=== PATIENT | male | born 1940 | race Caucasian/White ===

== ENCOUNTER 2018-05-02 00:16 | Emergency (ER) | payer MEDICARE ==
[~2018-05-02] VITALS: Ht 193 cm; Wt 82.7 kg
[2018-05-02 00:21] VITALS: Ht 193 cm; Wt 82.7 kg
[2018-05-02] MEDS ORDERED: PLAVIX75 MG PO (00:21)
[2018-05-02] MEDS ORDERED: LIPITOR40 MG (00:22)
[2018-05-02] MEDS ORDERED: COLACE100 MG PO (00:23)
[2018-05-02] MEDS ORDERED: HUMULIN 70100 UNIT/1 SC (00:23)
[2018-05-02] MEDS ORDERED: LANTUS INSULIN10 ML SC (00:24)
[2018-05-02 01:08] LABS: ALBUMIN 3.9 g/dL (3.4-5.0); ANION GAP 18.9 mmol/L (8-16); BILIRUBIN - TOTAL 0.4 mg/dL (0.2-1.3); CALCIUM 9.3 mg/dL (8.5-10.1); CARBON DIOXIDE 24.5 mmol/L (21.0-32.0); CREATININE - SERUM 2.3 mg/dL (0.6-1.3); POTASSIUM - SERUM 4.4 mmol/L (3.5-5.1); PROTEIN - SERUM 8.2 g/dL (6.4-8.2)
[2018-05-02 01:10] LABS: BASOPHILS 0.3 % (0-2); EOSINOPHILS 1.8 % (0-7); HEMATOCRIT 36.5 % (42.0-54.0); HEMOGLOBIN 12.3 g/dL (13.5-17.5); IMMATURE GRANULOCYTES 0.2 % (0-5); LYMPHOCYTES 20.3 % (15-50); MCH 33.8 pg (26.0-34.0); MCHC 33.7 g/dL (31.0-37.0); MCV 100.3 fL (80.0-100.0); MEAN PLATELET VOLUME 9.8 fL (7.4-10.4); MONOCYTES 12.7 % (2-11); NEUTROPHILS 64.7 % (40-80); PLATELET COUNT 208 10x3/uL (130-400); RBC 3.64 10x6/uL (4.20-6.10); RDW 13.2 % (11.5-14.5); WBC 6.6 10x3/uL (4.8-10.8)
[2018-05-02 01:13] LABS: TROPONIN-I 0.019 ng/mL (0.000-0.060)
[2018-05-02 03:38] VITALS: BP 125/75
== END 2018-05-02 03:39 | disposition home or self-care (01) ==
LOC: D.ER 00:16
PROVIDERS: Family Medicine
DX: E86.0 Dehydration (principal); N17.9 Acute kidney failure, unspecified; N18.9 Chronic kidney disease, unspecified

== ENCOUNTER 2018-07-20 19:11 | Inpatient (IN) | payer MEDICARE ==
[~2018-07-20] VITALS: Ht 182.9 cm; Wt 80.0 kg
[~2018-07-20 19:11] MED LIST: COLACE100 MG PO; HUMULIN 70100 UNIT/1 SC; LANTUS INSULIN10 ML SC; LIPITOR40 MG PO; PLAVIX75 MG PO
[2018-07-20] MEDS ORDERED: MULTI-DAY VITAM1 TAB PO (19:28)
[2018-07-20] MEDS ORDERED: TOUJEO SOL300 UNIT/1 SC (19:30)
[2018-07-20 20:23] LABS: BASOPHILS 0.1 % (0-2); EOSINOPHILS 0.5 % (0-7); HEMATOCRIT 30.9 % (42.0-54.0); HEMOGLOBIN 10.7 g/dL (13.5-17.5); IMMATURE GRANULOCYTES 0.4 % (0-5); MCH 33.5 pg (26.0-34.0); MCHC 34.6 g/dL (31.0-37.0); MCV 96.9 fL (80.0-100.0); MEAN PLATELET VOLUME 9.2 fL (7.4-10.4); MONOCYTES 12.1 % (2-11); NEUTROPHILS 78.9 % (40-80); PLATELET COUNT 247 10x3/uL (130-400); RBC 3.19 10x6/uL (4.20-6.10); RDW 12.6 % (11.5-14.5); WBC 14.1 10x3/uL (4.8-10.8)
[2018-07-20 20:32] LABS: APTT 27.9 SECONDS (22.8-39.4); INR 1.13 (0.85-1.17)
[2018-07-20 20:38] LABS: ALKALINE PHOSPHATASE 86 U/L (46-116); ALT (SGPT) 15 U/L (10-68); BILIRUBIN - TOTAL 0.61 mg/dL (0.2-1.3); CALC OSMOLALITY 274 mosm/kg (275-300); CALCIUM 9.5 mg/dL (8.5-10.1); CARBON DIOXIDE 25.4 mmol/L (21.0-32.0); CHLORIDE - SERUM 91 mmol/L (98-107); CREATININE - SERUM 2.1 mg/dL (0.6-1.3); POTASSIUM - SERUM 4.2 mmol/L (3.5-5.1); PROTEIN - SERUM 8.5 g/dL (6.4-8.2); SODIUM 128 mmol/L (136-145); UREA NITROGEN 32 mg/dL (7-18); eGFR NON AFRICAN AMERICAN 32 mL/min (90-120)
[2018-07-20 20:40] LABS: GLUCOSE 301 mg/dL (74-106)
--- NOTE | 2018-07-20 20:45 | NUR ---
PT PLACED IN GOWN. NECROTIC TOE NOTED TO 4TH DIGIT ON L FOOT. MIMI CHAVARRIA AT PT BEDSIDE.
[2018-07-20 20:50] LABS: CKMB 0.6 U/L (0.0-3.6); CREATINE KINASE 71 UL (21-232); TROPONIN-I < 0.017 ng/mL (0.000-0.060)
--- NOTE | 2018-07-20 21:01 | NUR ---
PT AND SPOUSE UPDATED ON PLAN OF CARE. NO S/S OF ACUTE DISTRESS NOTED.
[2018-07-20 21:02] VITALS: BP 127/68
--- NOTE | 2018-07-20 21:50 | NUR ---
URINE SPECIMEN SENT TO LAB.
[2018-07-20 22:13] LABS: APPEARANCE CLEAR (CLEAR); BILIRUBIN NEGATIVE (NEGATIVE); COLOR YELLOW (YELLOW); GLUCOSE 1000 mg/dL (NEGATIVE); KETONE NEGATIVE (NEGATIVE); NITRITE NEGATIVE (NEGATIVE); PROTEIN NEGATIVE (NEGATIVE); RED CELLS - URINE OCC /hpf (0-5); UROBILINOGEN NORMAL (NORMAL); WHITE CELLS - URINE NSEEN /hpf (0-5)
[2018-07-20 23:35] VITALS: BP 115/56; BMI 23.9
--- NOTE | 2018-07-21 02:15 | NUR ---
PATIENT ARIVED FROM ER IN W/C. ALERT AND ORENTED ABLE TO VOICE NEEDS AND WANTS TO STAFF. SCAR TO CHEST AND LOW BACK, HEALED FROM OLD SURG. 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 LITTLE TOE ON LEFT FOOT WITH NECROSIS AND OTHER TOES PRESENT DISCOLERED ON LEFT FOOT. STATED HE HAS APT WITH WOUND DR FOR IT. HAD BALLON STENTS PLACED WENSDAY , WENT IN THROUGH RIGHT GROUND SOME BRUSING NOTED TO SITE, NO BLEEDING NOTED.
[2018-07-21 03:00] VITALS: BP 121/63
[2018-07-21 07:25] LABS: BASOPHILS 0.1 % (0-2); IMMATURE GRANULOCYTES 0.3 % (0-5); LYMPHOCYTES 10.7 % (15-50); MCH 32.6 pg (26.0-34.0); MCHC 33.3 g/dL (31.0-37.0); MCV 97.8 fL (80.0-100.0); MEAN PLATELET VOLUME 9.4 fL (7.4-10.4); MONOCYTES 12.9 % (2-11); PLATELET COUNT 228 10x3/uL (130-400); RBC 2.76 10x6/uL (4.20-6.10); RDW 12.8 % (11.5-14.5); WBC 12.6 10x3/uL (4.8-10.8)
[2018-07-21 07:40] LABS: ALBUMIN 2.4 g/dL (3.4-5.0); BILIRUBIN - TOTAL 0.54 mg/dL (0.2-1.3); CALCIUM 8.8 mg/dL (8.5-10.1); CARBON DIOXIDE 27.8 mmol/L (21.0-32.0); CREATININE - SERUM 1.7 mg/dL (0.6-1.3); POTASSIUM - SERUM 3.8 mmol/L (3.5-5.1); PROTEIN - SERUM 7.1 g/dL (6.4-8.2)
[2018-07-21 08:14] VITALS: BP 110/58
--- NOTE | 2018-07-21 09:12 | NUR ---
PT ALERT X 4. BREATH SOUNDS CLEAR BILAT. TELEMETRY IN PLACE. MIDDLE FINGER LEFT HAND AMPUTATED. IV TO LEFT AC, PATENT, DRESSING CDI. TOES OF RIGHT FOOT AMPUTATED. TOES TO LEFT FOOT DRESSING IN PLACE. PT REPORTING NO PAIN AT THIS TIME. BED LOW, CALL LIGHT IN REACH. NO OTHER NEEDS AT THIS TIME.
--- NOTE | 2018-07-21 09:12 | NUR ---
PT ALERT X 4. BREATH SOUNDS CLEAR BILAT. TELEMETRY IN PLACE. MIDDLE FINGER OF LEFT HAND AMPUTATED. IV TO LEFT AC, PATENT, DRESSING CDI. TOES OF RIGHT FOOT AMPUTATED. 2ND AND 3RD TOE OF LEFT FOOT NECROTIC, DRESSING IN PLACE. PT REPORTING NO PAIN THIS MORNING. BED LOW, CALL LIGHT IN REACH. NO OTHER NEEDS AT THIS TIME.
[2018-07-21 12:14] VITALS: BP 112/84
[2018-07-21 16:58] VITALS: BP 134/70
[2018-07-21 20:16] VITALS: BP 84/36
[2018-07-22 01:03] VITALS: BP 126/64
--- NOTE | 2018-07-22 04:25 | NUR ---
I have reviewed this patient and I concur with the Shift Assessment completed by the Licensed Practical Nurse today this shift.
[2018-07-22 05:39] LABS: BASOPHILS 0.2 % (0-2); EOSINOPHILS 0.8 % (0-7); HEMATOCRIT 27.3 % (42.0-54.0); HEMOGLOBIN 9.3 g/dL (13.5-17.5); IMMATURE GRANULOCYTES 0.3 % (0-5); LYMPHOCYTES 9.9 % (15-50); MCH 32.9 pg (26.0-34.0); MCHC 34.1 g/dL (31.0-37.0); MCV 96.5 fL (80.0-100.0); MEAN PLATELET VOLUME 9.2 fL (7.4-10.4); MONOCYTES 12.4 % (2-11); NEUTROPHILS 76.4 % (40-80); PLATELET COUNT 243 10x3/uL (130-400); RBC 2.83 10x6/uL (4.20-6.10); RDW 12.4 % (11.5-14.5); WBC 12.9 10x3/uL (4.8-10.8)
[2018-07-22 05:44] VITALS: BP 118/79
[2018-07-22 05:54] LABS: ALBUMIN 2.2 g/dL (3.4-5.0); ANION GAP 10.8 mmol/L (8-16); BILIRUBIN - TOTAL 0.68 mg/dL (0.2-1.3); CALCIUM 9.4 mg/dL (8.5-10.1); CARBON DIOXIDE 28.8 mmol/L (21.0-32.0); CREATININE - SERUM 1.6 mg/dL (0.6-1.3); POTASSIUM - SERUM 3.6 mmol/L (3.5-5.1)
--- NOTE | 2018-07-22 07:37 | NUR ---
PT ALERT X 4. BREATH SOUNDS CLEAR BILAT. IV TO LEFT AC, PATENT, DRESSING CDI. TELEMETRY IN PLACE. DRESSING TO LEFT TOES INTACT. PT REPORTING NO PAIN AT THIS TIME. BED LOW, CALL LIGHT IN REACH. NO OTHER NEEDS AT THIS TIME.
[2018-07-22 09:49] VITALS: BP 149/75
[2018-07-22 11:00] VITALS: BMI 23.8
[2018-07-22 13:35] VITALS: BP 120/64
--- NOTE | 2018-07-22 14:23 | NUR ---
PT LYING IN BED NO S/S OF DISTRESS, NO NEEDS VOICED. CONTINUE WITH PLAN OF CARE
--- NOTE | 2018-07-22 15:20 | NUR ---
ADVISED BY COMMUTATOR REPAIRER PT TEMP IS 101.4 ADMINISTERED PRN TYLENOL. CONTINUE WITH PLAN OF CARE
[2018-07-22 18:20] VITALS: BP 153/74
[2018-07-22 21:04] VITALS: BP 106/53
[2018-07-23 00:40] VITALS: BP 124/60
[2018-07-23 04:14] VITALS: BP 128/58
[2018-07-23 05:21] LABS: BASOPHILS 0.1 % (0-2); EOSINOPHILS 0.1 % (0-7); HEMATOCRIT 25.4 % (42.0-54.0); HEMOGLOBIN 8.6 g/dL (13.5-17.5); IMMATURE GRANULOCYTES 0.6 % (0-5); LYMPHOCYTES 6.1 % (15-50); MCH 32.1 pg (26.0-34.0); MCHC 33.9 g/dL (31.0-37.0); MCV 94.8 fL (80.0-100.0); MEAN PLATELET VOLUME 9.1 fL (7.4-10.4); MONOCYTES 7.7 % (2-11); NEUTROPHILS 85.4 % (40-80); PLATELET COUNT 234 10x3/uL (130-400); RBC 2.68 10x6/uL (4.20-6.10); RDW 12.4 % (11.5-14.5)
--- NOTE | 2018-07-23 05:30 | NUR ---
PT JUST FINISHED SHOWER/HIBICLENS. A&O, DENIES PAIN. INQUIRED ABOUT BLOOD CULTURE RESULTS. REPORTS MILD MAUSEA. DENIES FURTHER NEEDS AT THIS TIME.
[2018-07-23 05:40] LABS: BILIRUBIN - TOTAL 0.62 mg/dL (0.2-1.3); CALCIUM 8.3 mg/dL (8.5-10.1); CARBON DIOXIDE 25.5 mmol/L (21.0-32.0); CREATININE - SERUM 1.6 mg/dL (0.6-1.3); POTASSIUM - SERUM 3.5 mmol/L (3.5-5.1); PROTEIN - SERUM 5.7 g/dL (6.4-8.2)
--- NOTE | 2018-07-23 07:20 | NUR ---
I have reviewed this patient and I concur with the Shift Assessment completed by the Licensed Practical Nurse today this shift.
--- NOTE | 2018-07-23 07:43 | NUR ---
PT ALERT X 4. BREATH SOUNDS CLEAR BILAT. TELEMETRY IN PLACE. IV TO LEFT AC, PATENT, DRESSING CDI. DRESSING TO LEFT FOOT. BED LOW, CALL LIGHT IN REACH. AWAITING SURGERY TODAY. NO OTHER NEEDS AT THIS TIME.
[2018-07-23 08:47] VITALS: BP 105/46
[2018-07-23 11:51] LABS: % SATURATION 7 % (15-55); IRON 11 ug/dl (35-150); TOTAL IRON BIND CAPACITY 140 ug/dl (260-445); UNSAT IRON BIND CAPACITY 129 ug/dl (150-375)
[2018-07-23 12:45] VITALS: BP 81/42
--- NOTE | 2018-07-23 12:51 | MORECARE ---
CASE MANAGEMENT DISCHARGE SUMMARY PATIENT: DAVID HOWELL UNIT: [id number] ADM DATE: 07/20/18 AGE: 78 : 40 SEX: M ROOM/BED: D.2201 AUTHOR: GERALDINE CASTRO PHYSICIAN: REFERRING PHYSICIAN: GLORIA ARRNIGTON MD DATE OF SERVICE: 07/23/18 Discharge Plan Patient Name: DAVID HOWELL [facility] [facility] 1940 Planned Disposition: Home Anticipated Discharge Date: Discharge Date: Expected LOS: Initial Reviewer: [email or web address] Initial Review Date: 07/20/2018 Generated: 07/23/18 1:50 pm DCPIA - Discharge Planning Initial Assessment Updated by [email or web address]: Irina Pelayo on 07/23/18 12:51 pm * Is the patient Alert and Oriented? Yes * How many steps to enter\exit or inside your home? * PCP [facility] * [facility] [address] * Preadmission Environment Home with Family * ADLs Independent * Equipment None * List name and contact numbers for known caregivers / representatives who currently or will assist patient after discharge: jovan () [phone] * Verbal permission to speak to the caregivers and representatives has been obtained from the patient. N/A * Community resources currently utilized None * Additional services required to return to the preadmission environment? Yes * Can the patient safely return to the preadmission environment? Yes * Has this patient been hospitalized within the prior 30 days at any hospital? No Patient Name: DAVID HOWELL Page [phone] at 1251 All edits/amendments must be made on the electronic document DICTATION DATE: 07/23/18 1250 FOOD TRAY ASSEMBLER: SENDY 07/23/18 1250 RPT#: [id number] DC DATE: STATUS: ADM IN [facility] [address] [place] [address] END OF REPORT
--- NOTE | 2018-07-23 13:00 | MORECARE ---
CASE MANAGEMENT DISCHARGE SUMMARY PATIENT: DAVID HOWELL UNIT: [id number] ADM DATE: 07/20/18 AGE: 78 : 40 SEX: M ROOM/BED: D.2201 AUTHOR: MATTHEWDOC PHYSICIAN: REFERRING PHYSICIAN: GLORIA ARRINGTON MD DATE OF SERVICE: 07/23/18 Discharge Plan Patient Name: DAVID HOWELL Facility: [facility]:[place] : 1940 Planned Disposition: Home Anticipated Discharge Date: Discharge Date: Expected LOS: Initial Reviewer: [email or web address] Initial Review Date: 07/20/2018 Generated: 07/23/18 2:00 pm Comments DCP- Discharge Planning Updated by [email or web address]: Irina Pelayo on 07/23/18 11:[address] Patient Name: DAVID HOWELL Admission Status: ER Accout number: [id number] Admission Date: 07-20-2018 : 1940 Admission Diagnosis: Attending: GLORIA ARRINGTON Current LOS: 3 Anticipated DC Date: Planned Disposition: Home Primary Insurance: CARE IMPROVEMENT PLUS [facility] Discharge Planning Comments: CM met with patient to complete initial dc planning assessment. CM educated patient on the CM role and verbal consent given by patient to complete assessment. Patient lives at home with his where he is independent with is care. At discharge patient plans to return home and feels this is a safe discharge. CM discussed availability of home health, rehab services, and medical equipment. We talked about home health and iv abx as a possibility when he is discharged home. FALGUNI with [facility] and he would like to use the infusion company that is the cheapest out of pocket cost for him. We will wait to see if he needs this at dc. FALGUNI signed and placed in chart. Patient denied known discharge needs at this time. CM will continue to follow and will assist as needed with dc plans/needs. Product Operations Associate: Irina Pelayo DCPIA - Discharge Planning Initial Assessment Updated by [email or web address]: Irina Pelayo on 07/23/18 12:51 pm * Is the patient Alert and Oriented? Yes * How many steps to enter\exit or inside your home? * PCP [facility] * [facility] [address] * Preadmission Environment Home with Family * ADLs Independent * Equipment None * List name and contact numbers for known caregivers / representatives who currently or will assist patient after discharge: jovan () [phone] * Verbal permission to speak to the caregivers and representatives has been obtained from the patient. N/A * Community resources currently utilized None * Additional services required to return to the preadmission environment? Yes * Can the patient safely return to the preadmission environment? Yes * Has this patient been hospitalized within the prior 30 days at any hospital? No Coverage Notice Reviewer: [email or web address] Teodoro Pelayo Notice Issued Date-Time: 07/23/2018 12:15 Notice Type: Patient Choice Letter Notice Delivered To: Patient Relationship to Patient: Rac Specialist Name: Delivery Method: HAND - Hand Delivered Radha Days: Prior Verbal Notification: Recipient Understood Notice: Yes Recipient Signature: Yes Med Rec Note Co-signed by Attending: Coverage Notice Comment: Last DP export: 07/23/18 11:51 am Patient Name: DAVID HOWELL Page [phone] at 1300 All edits/amendments must be made on the electronic document DICTATION DATE: 07/23/18 1259 OUTDOOR ADVENTURE INSTRUCTOR: SENDY 07/23/18 1259 RPT#: [id number] DC DATE: STATUS: ADM IN [facility] [address] [place] [address] END OF REPORT
[2018-07-23 16:47] VITALS: BP 100/59
[2018-07-23 21:28] VITALS: BP 115/60
[2018-07-24 02:13] VITALS: BP 119/62
--- NOTE | 2018-07-24 03:00 | NUR ---
BLOODY DRAINAGE ON DRESSING TO LEFT FOOT, REINFORCED. PT DENIES PAIN/NEEDS AT THIS TIME. WILL CONTINUE TO MONITOR.
[2018-07-24 04:50] VITALS: BP 138/66
[2018-07-24 05:30] LABS: BASOPHILS 0.2 % (0-2); EOSINOPHILS 0.1 % (0-7); HEMATOCRIT 25.7 % (42.0-54.0); HEMOGLOBIN 8.8 g/dL (13.5-17.5); IMMATURE GRANULOCYTES 0.5 % (0-5); LYMPHOCYTES 7.4 % (15-50); MCH 32.8 pg (26.0-34.0); MCHC 34.2 g/dL (31.0-37.0); MCV 95.9 fL (80.0-100.0); MEAN PLATELET VOLUME 9.7 fL (7.4-10.4); NEUTROPHILS 82.8 % (40-80); PLATELET COUNT 269 10x3/uL (130-400); RBC 2.68 10x6/uL (4.20-6.10); RDW 12.6 % (11.5-14.5); WBC 17.7 10x3/uL (4.8-10.8)
--- NOTE | 2018-07-24 05:47 | NUR ---
I have reviewed this patient and I concur with the Shift Assessment completed by the Licensed Practical Nurse today this shift.
[2018-07-24 05:49] LABS: ANION GAP 14.7 mmol/L (8-16); BILIRUBIN - TOTAL 0.64 mg/dL (0.2-1.3); CALCIUM 8.5 mg/dL (8.5-10.1); CARBON DIOXIDE 26.8 mmol/L (21.0-32.0); CREATININE - SERUM 1.8 mg/dL (0.6-1.3); POTASSIUM - SERUM 3.5 mmol/L (3.5-5.1); PROTEIN - SERUM 6.8 g/dL (6.4-8.2)
--- NOTE | 2018-07-24 07:43 | NUR ---
PT ALERT X 4. BREATH SOUNDS CLEAR BILAT. TELEMETRY IN PLACE. IV TO LEFT AC, PATENT, DRESSING CDI. DRESSING TO LEFT FOOT CDI. PT REPORTING NO PAIN AT THIS TIME. BED LOW, CALL LIGHT IN REACH. NO OTHER NEEDS AT THIS TIME.
[2018-07-24 08:48] VITALS: BP 123/64
[2018-07-24 12:23] VITALS: BP 140/73
--- NOTE | 2018-07-24 12:49 | NUR ---
NUTRITION F/U CHART REVIEWED. PT S/P PROCEDURE. CURRENTLY NPO. WILL PROVIDE DIET WHEN RESUMED, MONITOR PO INTAKE. RD FOLLOWING
[2018-07-24 13:15] LABS: FOLATE (FOLIC ACID) - SERUM 6.8 ng/mL (>3.0)
[2018-07-24 15:00] LABS: T4 THYROXIN - FREE 1.44 ng/dL (0.76-1.46)
[2018-07-24 15:08] LABS: MAGNESIUM - SERUM 0.9 mg/dL (1.8-2.4)
[2018-07-24 15:27] VITALS: Ht 182.9 cm; Wt 80.0 kg
[2018-07-24 16:45] VITALS: BP 131/67
--- NOTE | 2018-07-24 18:02 | NUR ---
DRESSING CHANGE TO RIGHT FOOT COMPLETE. DRESSING CDI. PT TOLERATED WELL. NO OTHER NEEDS AT THIS TIME.
[2018-07-24 21:27] VITALS: BP 121/71
[2018-07-25 02:05] VITALS: BP 107/57
[2018-07-25 04:28] LABS: ANION GAP 13.7 mmol/L (8-16); BILIRUBIN - TOTAL 0.89 mg/dL (0.2-1.3); CALCIUM 8.8 mg/dL (8.5-10.1); CARBON DIOXIDE 27.8 mmol/L (21.0-32.0); CREATININE - SERUM 1.9 mg/dL (0.6-1.3); POTASSIUM - SERUM 3.5 mmol/L (3.5-5.1); PROTEIN - SERUM 7.1 g/dL (6.4-8.2)
[2018-07-25 04:33] LABS: BASOPHILS 0.2 % (0-2); EOSINOPHILS 0.1 % (0-7); HEMATOCRIT 24.3 % (42.0-54.0); HEMOGLOBIN 8.4 g/dL (13.5-17.5); LYMPHOCYTES 8.2 % (15-50); MCH 32.4 pg (26.0-34.0); MCHC 34.6 g/dL (31.0-37.0); MEAN PLATELET VOLUME 9.5 fL (7.4-10.4); MONOCYTES 7.6 % (2-11); NEUTROPHILS 82.9 % (40-80); PLATELET COUNT 282 10x3/uL (130-400); RBC 2.59 10x6/uL (4.20-6.10); RDW 12.7 % (11.5-14.5); WBC 17.7 10x3/uL (4.8-10.8)
[2018-07-25 04:35] LABS: MCV 93.8 fL (80.0-100.0)
[2018-07-25 06:17] VITALS: BP 134/74
--- NOTE | 2018-07-25 07:00 | NUR ---
PATIENT RECIEVED FROM PREVIOUS SHIFT RESTING WITH NO NEEDS VOICED. CL IN REACH. DRESSINGS C/D/I
[2018-07-25 10:08] VITALS: BP 129/66
[2018-07-25 13:03] VITALS: BP 90/49
--- NOTE | 2018-07-25 15:39 | NUR ---
DRESSING CHANGED TO LEFT FOOT SURGICAL WOND FOLLOWS: PACKING REMOVED, CLEANSED WITH BETADINE, PACKED TUNNEL WITH 1/4"IODOFORM PACKING, COVERED WITH 4X4'S, ABD PAD, SECURED WITH KERLIX AND TAPE. NO ODOR NOTED TO WOUND, MINIMAL DRAINAGE, NO REDNESS OR OTHER SIGNS OF INFECTION
[2018-07-25 16:58] VITALS: BP 116/63
[2018-07-25 21:16] VITALS: BP 124/71
[2018-07-26] VITALS (13 sets, daily range): BP systolic 87–126; BP diastolic 44–88
--- NOTE | 2018-07-26 01:00 | NUR ---
PAIN MED EFFECTIVE RESTING QUIETLY EYES CLOSED VSS NO DISTRESS NOTED
--- NOTE | 2018-07-26 01:29 | NUR ---
RESTING IN BED WITH NO NEEDS NOTED OR STATED IV IN TACT CALL LIGHT AND WATER IN REACH.
[2018-07-26 04:17] LABS: HEMOGLOBIN 9.6 g/dL (13.5-17.5); MCH 32.1 pg (26.0-34.0); MCHC 34.3 g/dL (31.0-37.0); MCV 93.6 fL (80.0-100.0); MEAN PLATELET VOLUME 10.1 fL (7.4-10.4); PLATELET COUNT 278 10x3/uL (130-400); RBC 2.99 10x6/uL (4.20-6.10); RDW 12.8 % (11.5-14.5); WBC 14.8 10x3/uL (4.8-10.8)
[2018-07-26 04:28] LABS: ALBUMIN 1.8 g/dL (3.4-5.0); ANION GAP 13.4 mmol/L (8-16); BILIRUBIN - TOTAL 0.76 mg/dL (0.2-1.3); CALCIUM 8.1 mg/dL (8.5-10.1); CARBON DIOXIDE 27.2 mmol/L (21.0-32.0); CREATININE - SERUM 1.7 mg/dL (0.6-1.3); POTASSIUM - SERUM 3.6 mmol/L (3.5-5.1); PROTEIN - SERUM 6.5 g/dL (6.4-8.2)
[2018-07-26 04:45] LABS: EOSINOPHILS 1 % (0-7); LYMPHOCYTES 5 % (15-50); MONOCYTES 8 % (2-11); NEUTROPHILS 78 % (40-80)
[2018-07-26 04:46] LABS: PLATELET ESTIMATE NORMAL; PLATELET MORPHOLOGY GIANT PLTS PRESENT; SMUDGE CELLS OCC
[2018-07-26 11:40] LABS: HEMOGLOBIN 9.4 g/dL (13.5-17.5); MCH 33.2 pg (26.0-34.0); MCHC 34.8 g/dL (31.0-37.0); MCV 95.4 fL (80.0-100.0); MEAN PLATELET VOLUME 10.3 fL (7.4-10.4); PLATELET COUNT 335 10x3/uL (130-400); RBC 2.83 10x6/uL (4.20-6.10); RDW 12.9 % (11.5-14.5); WBC 24.6 10x3/uL (4.8-10.8)
[2018-07-26 11:54] LABS: ALKALINE PHOSPHATASE 147 U/L (46-116); ALT (SGPT) 683 U/L (10-68); BILIRUBIN - TOTAL 0.87 mg/dL (0.2-1.3); CALC OSMOLALITY 298 mosm/kg (275-300); CALCIUM 7.9 mg/dL (8.5-10.1); CHLORIDE - SERUM 99 mmol/L (98-107); GLUCOSE 191 mg/dL (74-106); PROTEIN - SERUM 6.1 g/dL (6.4-8.2); SODIUM 144 mmol/L (136-145); UREA NITROGEN 32 mg/dL (7-18)
[2018-07-26 11:56] LABS: CARBON DIOXIDE 35.9 mmol/L (21.0-32.0); CREATININE - SERUM 2.3 mg/dL (0.6-1.3); POTASSIUM - SERUM 4.5 mmol/L (3.5-5.1); eGFR NON AFRICAN AMERICAN 29 mL/min (90-120)
--- NOTE | 2018-07-26 12:00 | NUR ---
RECEIVED PT TO UNIT POST RAPID RESPONSE ON FLOOR. WAS TOLD PT HAD A VAGAL RESPONSE WHILE HAVING A BOWEL MOVEMENT. RECEIVED ON A NON REBREATHER. DRESSING CHANGE TO LEFT FOOT WAS DONE BY [employer] SUPERVISOR ONCE PT STABILIZED IN UNIT. MONITORS HOOKED UP. HEAD TO TOE ASSESSMENT PERFORMED. IV FLUIDS STARTED. VSS. AT BEDSIDE. CALL LIGHT IN REACH. WILL CONTINUE TO MONITOR.
[2018-07-26 12:05] LABS: CKMB 1.8 U/L (0.0-3.6); CREATINE KINASE 152 UL (21-232)
--- NOTE | 2018-07-26 13:35 | NUR ---
PT RESTING QUIETLY. PT NOW ON O2 AT 2L. EKG DONE PER RT PER ORDERS. CARDIOLOGY BOOTMAKER NOTIFIED OF ELEVATED TROPONIN. NO NEW ORDERS AT THIS TIME. VSS. WILL CONTINUE TO MONITOR.
[2018-07-26 14:19] LABS: BASOPHILS 0.7 % (0-2); EOSINOPHILS 0.4 % (0-7); IMMATURE GRANULOCYTES 7.8 % (0-5); LYMPHOCYTES 16.8 % (15-50); NEUTROPHILS 67.3 % (40-80)
--- NOTE | 2018-07-26 15:45 | NUR ---
PT TAKEN FOR NM LUNG SCAN. VSS.
--- NOTE | 2018-07-26 19:00 | NUR ---
REPORT RECEIVED SEE ASSESSMENT PT ORIENTED DENIES PAIN OR DISCOMFORT ALARMS ON AND AUDIBLE DRESSING NOTED TO LEFT FOOT DRY AND INTACT
[2018-07-26 19:47] LABS: CKMB 4.9 U/L (0.0-3.6); VANCOMYCIN - TROUGH 17.7 ug/mL (10.0-20.0)
[2018-07-26 19:53] LABS: CREATINE KINASE 306 UL (21-232)
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
[2018-07-27] VITALS (13 sets, daily range): BP systolic 101–138; BP diastolic 49–76
[2018-07-27 00:52] LABS: CKMB 3.6 U/L (0.0-3.6); CREATINE KINASE 258 UL (21-232); TROPONIN-I 0.129 ng/mL (0.000-0.060)
--- NOTE | 2018-07-27 01:00 | NUR ---
PAIN MED EFFECTIVE PT RESTING QUIETLY EYES CLOSED VSS NO DISTRESS NOTED
--- NOTE | 2018-07-27 03:00 | NUR ---
REASSESSMENT MADE NO CHANGES CPOC. PT REPOSITIONED FOR COMFORT
--- NOTE | 2018-07-27 03:00 | NUR ---
REASSESSMENT NO CHANGES PT DENIES DISTRESS
[2018-07-27 03:23] LABS: BASOPHILS 0.3 % (0-2); EOSINOPHILS 0.5 % (0-7); HEMATOCRIT 24.9 % (42.0-54.0); HEMOGLOBIN 8.5 g/dL (13.5-17.5); LYMPHOCYTES 9.1 % (15-50); MCH 32.2 pg (26.0-34.0); MCHC 34.1 g/dL (31.0-37.0); MCV 94.3 fL (80.0-100.0); MEAN PLATELET VOLUME 10.3 fL (7.4-10.4); MONOCYTES 7.2 % (2-11); NEUTROPHILS 77.9 % (40-80); PLATELET COUNT 338 10x3/uL (130-400); RBC 2.64 10x6/uL (4.20-6.10); RDW 12.9 % (11.5-14.5)
[2018-07-27 03:40] LABS: ALBUMIN 1.7 g/dL (3.4-5.0); BILIRUBIN - TOTAL 0.71 mg/dL (0.2-1.3); CALCIUM 7.9 mg/dL (8.5-10.1); CARBON DIOXIDE 27.5 mmol/L (21.0-32.0); CREATININE - SERUM 1.8 mg/dL (0.6-1.3)
[2018-07-27 03:41] LABS: ANION GAP 12.2 mmol/L (8-16); POTASSIUM - SERUM 3.7 mmol/L (3.5-5.1)
--- NOTE | 2018-07-27 05:00 | NUR ---
PT AWAKE WATCHING TV NO DISTRESS NOTED VSS CPOC REPOSITIONED FOR COMFORT
--- NOTE | 2018-07-27 08:46 | NUR ---
UP IN BED EATING BREAKFAST AT THIS TIME. PT DENIES ANY NEEDS OR DISCOMFORTS. CALL LIGHT IN REACH. VSS. NO ACUTE DISTRESS NOTED. WILL CONTINUE PLAN OF CARE.
--- NOTE | 2018-07-27 10:46 | NUR ---
UP IN BED WATCHING TV AT THIS TIME. NO ACUTE DISTRESS NOTED. BED ALARM ON. CALL LIGHT IN REACH. WILL CONTINUE PLAN OF CARE.
--- NOTE | 2018-07-27 12:30 | NUR ---
DRESSING CHANGE PERFORMED TO LT FOOT PER ORDERS. NO DRAINAGE OR REDNESS NOTED TO AREA. NO ACUTE DISTRESS NOTED. WILL CONTINUE PLAN OF CARE.
--- NOTE | 2018-07-27 13:59 | NUR ---
PT TRANSFERRED TO 2118 AT THIS TIME. REPORT CALLED TO RECIEVING NURSE. [facility] CHANGED [facility] TRANSFER. NOHELIA CARE PROVIDED BY PT. NO ACUTE DISTRESS NOTED. TRANSFERRED VIA BED ACCOMPANIED BY HOSPITAL STAFF. RECIEVING NURSE STATED SHE WILL NOTIFY PTS FAMILY OF TRANSFER. VSS. NO FURTHER ACTIONS.
--- NOTE | 2018-07-27 14:22 | NUR ---
PT ARRIVED FROM ICU, ALERT AND ORIENTED X4. I CALLED PT'S SPOUSE TO LET HER KNOW ABOUT THE TRANSFER. CALL LIGHT IN REACH, WILL CONTINUE TO MONITOR AND FOLLOW PLAN OF CARE
[2018-07-27 17:07] LABS: AEROBE ID Final report (())
--- NOTE | 2018-07-27 20:00 | NUR ---
PT RESTING IN BED. NO DISTRESS. INITIAL ROUNDS COMPLETED. SEE ASSESSMENT.
--- NOTE | 2018-07-27 21:15 | NUR ---
ALL BEDTIME MEDS GIVEN. PT RESTING. CALL LIGHT IN REACH. MONITOR AND CPOC. AT BEDSIDE. PT EATING FOOD SHE BROUGHT IN. WILL CHECK BLOOD SUGAR POST PRANDIAL.
--- NOTE | 2018-07-27 23:30 | NUR ---
FSBS 313, SLIDING SCALE INSULIN ADMINISTERED. IV ABT UP AND INFUSING. MONITOR AND CPOC.
--- NOTE | 2018-07-28 03:07 | NUR ---
PT RESTING IN BED WITH EYES CLOSED. RESPS EVEN/NONLABORED. NO DISTRESS. MONITOR AND CPOC. AT BEDSIDE.
--- NOTE | 2018-07-28 07:30 | NUR ---
ROUNDING DONE WITH PATIENT LAYING ON BACK IN BED, IN CHAIR AT BEDSIDE. DENIES NEEDS AT THIS TIME. ON HEART MONITOR SHOWING SR, HR 68. ON ROOM AIR. RIGHT AC PIV SEEN WITH LR INFUSING AT 100 CC/HR, ORANGE SWAB CAP IN USE. ON EP, AWAITING LAB RESULTS. WILL MONITOR.
[2018-07-28 07:59] VITALS: BP 143/81
--- NOTE | 2018-07-28 08:03 | NUR ---
CALLED TO ROOM PER . PATIENT PULLED HIS IV OUT WITH TIP INTACT. WILL ATTEMPT RE-SITE.
[2018-07-28 08:39] LABS: ALBUMIN 1.8 g/dL (3.4-5.0); ANION GAP 17.1 mmol/L (8-16); BILIRUBIN - TOTAL 0.6 mg/dL (0.2-1.3); CALCIUM 7.7 mg/dL (8.5-10.1); CARBON DIOXIDE 20.8 mmol/L (21.0-32.0); POTASSIUM - SERUM 3.9 mmol/L (3.5-5.1); PROTEIN - SERUM 5.7 g/dL (6.4-8.2)
[2018-07-28 08:40] LABS: CREATININE - SERUM 1.2 mg/dL (0.6-1.3)
--- NOTE | 2018-07-28 09:10 | NUR ---
RIGHT FA X 1 STICK WITH 22 G PER THIS NURSE.
[2018-07-28 10:09] LABS: HEMOGLOBIN 9.9 g/dL (13.5-17.5); MCH 34.7 pg (26.0-34.0); MCHC 36.7 g/dL (31.0-37.0); MCV 94.7 fL (80.0-100.0); MEAN PLATELET VOLUME 10.7 fL (7.4-10.4); NEUTROPHILS 81.5 % (40-80); PLATELET COUNT 152 10x3/uL (130-400); RBC 2.85 10x6/uL (4.20-6.10); RDW 13.8 % (11.5-14.5); WBC 16.1 10x3/uL (4.8-10.8)
[2018-07-28 11:57] VITALS: BP 143/71
[2018-07-28 16:27] VITALS: BP 143/78
[2018-07-28 19:45] VITALS: BP 150/83
--- NOTE | 2018-07-28 20:00 | NUR ---
INITIAL ROUNDS AND ASSESSMENT COMPLETED. PT RESTING IN BED. IV LR AT 125ML/HR INFUSING TO RFA. DENIES PAIN OR DISCOMFORT. MONITOR AND CPOC.
--- NOTE | 2018-07-28 21:39 | NUR ---
BEDTIME MEDS GIVEN. FSBS 331, SLIDING SCALE HUMULIN R ADMINISTERED. CONCERNED ABOUT ARMS LOOKING PUFFY, IVF DECREASED TO 50ML/HR WHICH SHE FEELS IS BETTER FOR PATIENT. PT ALSO HAS DRESSING TO LEFT FOOT THAT SHE STATES WAS SUPPOSED TO BE CHANGED TODAY AND WAS NOT. WILL PROVIDE DRESSING CHANGE.
--- NOTE | 2018-07-28 23:09 | NUR ---
COMPLETE DRESSING CHANGE TO LEFT FOOT. PRESENT, ABLE TO SEE WOUND. PULSES DOPPLER X 2 TO LEFT FOOT. PT WANTING SOMETHING FOR PAIN TO RIB/CHEST AREA. DISCUSSED WITH /PATIENT THAT ONLY AVAILABLE PAIN MEDICATION IS IV DILAUDID. SHE STATES PT DOES NOT DO VERY WELL WITH STRONG NARCOTICS. WILL CONTACT MD FOR A LESSER STRENGTH ORAL MEDICATION FOR PAIN CONTROL.
--- NOTE | 2018-07-28 23:20 | NUR ---
CALL TO DR ESPOSITO. REPORTED REQUEST PER FAMILY FOR A LESSER NARCOTIC. ORDER RECEIVED FOR NORCO TABS. WILL MEDICATE.
[2018-07-29] VITALS: BP 147/86
[2018-07-29 04:00] VITALS: BP 144/79
[2018-07-29 05:46] LABS: HEMATOCRIT 26.6 % (42.0-54.0); HEMOGLOBIN 9.1 g/dL (13.5-17.5); MCH 31.9 pg (26.0-34.0); MCHC 34.2 g/dL (31.0-37.0); MCV 93.3 fL (80.0-100.0); MEAN PLATELET VOLUME 9.7 fL (7.4-10.4); RBC 2.85 10x6/uL (4.20-6.10); RDW 12.8 % (11.5-14.5); WBC 15.5 10x3/uL (4.8-10.8)
[2018-07-29 05:48] LABS: ALBUMIN 1.9 g/dL (3.4-5.0); BILIRUBIN - TOTAL 0.53 mg/dL (0.2-1.3); CALCIUM 7.6 mg/dL (8.5-10.1); CREATININE - SERUM 1.2 mg/dL (0.6-1.3); PLATELET COUNT 443 10x3/uL (130-400); POTASSIUM - SERUM 3.6 mmol/L (3.5-5.1); PROTEIN - SERUM 5.9 g/dL (6.4-8.2)
[2018-07-29 05:49] LABS: ANION GAP 10.9 mmol/L (8-16); CARBON DIOXIDE 27.7 mmol/L (21.0-32.0)
[2018-07-29 07:59] VITALS: BP 123/84
[2018-07-29 08:09] LABS: ANISOCYTOSIS OCC; EOSINOPHILS 1 % (0-7); HYPOCHROMASIA OCC; LYMPHOCYTES 15 % (15-50); MONOCYTES 12 % (2-11); NEUTROPHILS 67 % (40-80); PLATELET ESTIMATE INCREASED; ROULEAUX OCC
--- NOTE | 2018-07-29 10:04 | NUR ---
ALERT AND ORIENTED X4. LAYING IN BED. SPOUSE AT BEDSIDE. CHANGE LT FOOT DRESSING. CONSENTS FOR EGD SIGNED ON CHART. DENIES ANY NEEDS AT THIS TIME. SINUS RHYTHM 73 ON TELEMETRY. CONTINUE PLAN OF CARE AND SAFETY PRECAUTIONS.
[2018-07-29 12:04] VITALS: BP 183/99
[2018-07-29 18:07] LABS: AEROBE ID Final report (())
--- NOTE | 2018-07-29 18:28 | NUR ---
ALERT AND ORIENTED X4. SITTING UP IN BED. SPOUSE AT BEDSIDE. SINUS RHYTHM WITH PVCs ON TELEMETRY. CONSENTS FOR PROCEDURE SIGNED ON CHART. DENIES ANY NEEDS. CONTINUE PLAN OF CARE AND SAFETY PRECAUTIONS.
--- NOTE | 2018-07-29 19:30 | NUR ---
RESUMING PATIENT CARE. PATIENT IS ALERT AND ORIENTED. RESPIRATIONS ARE EVEN AND UNLABORED. NO S/S OF DISTRESS. NO C/O PAIN. AT BESIDE. NEEDS MET. CALL LIGHT WITHIN REACH. WILL CPOC.
[2018-07-29 20:00] VITALS: BP 171/95
[2018-07-30] VITALS: BP 166/84
--- NOTE | 2018-07-30 01:06 | NUR ---
PATIENT RESTING COMFORTABLY IN BED. RESPIRATIONS ARE EVEN AND UNLABORED. NO S/S OF DISTRESS. NO C/O PAIN. AT BEDSIDE. CALL LIGHT WITHIN REACH. WILL CPOC.
[2018-07-30 04:00] VITALS: BP 148/79
[2018-07-30 05:15] LABS: BASOPHILS 0.3 % (0-2); EOSINOPHILS 1.1 % (0-7); HEMATOCRIT 31.8 % (42.0-54.0); LYMPHOCYTES 13.5 % (15-50); MCH 32.7 pg (26.0-34.0); MCHC 34.9 g/dL (31.0-37.0); MCV 93.8 fL (80.0-100.0); MEAN PLATELET VOLUME 9.7 fL (7.4-10.4); MONOCYTES 10.9 % (2-11); NEUTROPHILS 69.2 % (40-80); PLATELET COUNT 459 10x3/uL (130-400); RBC 3.39 10x6/uL (4.20-6.10); RDW 12.9 % (11.5-14.5); WBC 13.3 10x3/uL (4.8-10.8)
[2018-07-30 05:16] LABS: HEMOGLOBIN 11.1 g/dL (13.5-17.5)
[2018-07-30 05:26] LABS: ALBUMIN 2.1 g/dL (3.4-5.0); BILIRUBIN - TOTAL 0.67 mg/dL (0.2-1.3); CALCIUM 8.5 mg/dL (8.5-10.1); CARBON DIOXIDE 29.1 mmol/L (21.0-32.0); CREATININE - SERUM 1.1 mg/dL (0.6-1.3); POTASSIUM - SERUM 3.1 mmol/L (3.5-5.1)
[2018-07-30 05:37] LABS: PROTEIN - SERUM 7.4 g/dL (6.4-8.2)
--- NOTE | 2018-07-30 08:45 | NUR ---
RECIEVED FROM OR. ALERT AND ORIENTED. V/S STABLE. DRSG TO LEFT FOOT. RIGHT FORE ARM IV WITH LR AT KVO. UP WITH ASSIST, FAMILY AT BEDSIDE . SR UP WITH CALL LIGHT IN REACH.
--- NOTE | 2018-07-30 09:40 | NUR ---
Nutrition follow-up: Pt currently NPO for wound clousure PO intake has been 50-100% of most meals Labs revieweed Wt: 175# +BM RDN following.
--- NOTE | 2018-07-30 16:12 | NUR ---
I have reviewed this patient and I concur with the Shift Assessment completed by the Licensed Practical Nurse today this shift.
--- NOTE | 2018-07-30 19:35 | NUR ---
ASSESSMENT COMPLETE, PT A&O. RESPERATIONS EVEN ON RA. IV TO RIGHT FOREARM WITH LR INFUSING AT KVO. IV SITE CLEAN AND DRY. DRSG TO LEFT FOOT C/D/I, FOOT ELEVATED ON PILLOW. PT DRINKING GO-LYTLEY TO PREPARE FOR COLONOSCOPY IN THE MORNING, PT STATED UNDERSTANDING OF NOTHING TO EAT OR DRINK AFTER MN. PT CURRENLY DENIES PAIN OR NEEDS, BED LOW, CL IN REACH. AT BED SIDE.
[2018-07-30 20:00] VITALS: BP 148/82
--- NOTE | 2018-07-30 21:34 | NUR ---
HS MEDS GIVEN WITH FRESH ICE WATER. BS 305. COVERED WITH 4 UNITS OF REG. INSULIN, WHICH IS HALF OF DOSE OF THE S/S, SINCE PT IS NPO AFTER MN FOR PROCEDURE.
[2018-07-31 00:08] VITALS: BP 149/89
--- NOTE | 2018-07-31 00:25 | NUR ---
PT UP TO BR, STOOL CLEAR
--- NOTE | 2018-07-31 02:47 | NUR ---
RESTING WITH EYES CLOSED, RESPERATIONS EVEN, NO S/S DISTRESS NOTED.
--- NOTE | 2018-07-31 03:01 | NUR ---
I have reviewed this patient and I concur with the Shift Assessment completed by the Licensed Practical Nurse today this shift.
[2018-07-31 04:00] VITALS: BP 154/89
[2018-07-31 06:13] LABS: BASOPHILS 0.2 % (0-2); EOSINOPHILS 1.4 % (0-7); HEMATOCRIT 29.5 % (42.0-54.0); IMMATURE GRANULOCYTES 1.4 % (0-5); LYMPHOCYTES 16.4 % (15-50); MCH 32.3 pg (26.0-34.0); MCHC 33.9 g/dL (31.0-37.0); MCV 95.2 fL (80.0-100.0); MEAN PLATELET VOLUME 9.6 fL (7.4-10.4); MONOCYTES 11.3 % (2-11); NEUTROPHILS 69.3 % (40-80); PLATELET COUNT 425 10x3/uL (130-400); WBC 12.5 10x3/uL (4.8-10.8)
[2018-07-31 07:00] LABS: ALBUMIN 2.1 g/dL (3.4-5.0); ANION GAP 15.8 mmol/L (8-16); BILIRUBIN - TOTAL 0.59 mg/dL (0.2-1.3); CALCIUM 8.3 mg/dL (8.5-10.1); CARBON DIOXIDE 24.5 mmol/L (21.0-32.0); POTASSIUM - SERUM 3.3 mmol/L (3.5-5.1); PROTEIN - SERUM 7.2 g/dL (6.4-8.2)
[2018-07-31 07:01] LABS: CREATININE - SERUM 1.4 mg/dL (0.6-1.3)
[2018-07-31 08:44] VITALS: BP 159/72
[2018-07-31 11:40] VITALS: BP 118/62
--- NOTE | 2018-07-31 12:37 | NUR ---
PRE-OPS GIVEN. TO COOK COLD MEAT BY BED. WILL CONT. PLAN OF CARE.
--- NOTE | 2018-07-31 13:48 | NUR ---
BACK FROM GI LAB. DIET AND MEDS RESUMED.
[2018-07-31 15:46] VITALS: BP 131/74
--- NOTE | 2018-07-31 19:30 | NUR ---
RESUMING PATIENT CARE. PATIENT IS ALERT AND ORIENTED, RESTING COMFORTABLY IN BED. RESPIRATIONS ARE EVEN AND UNLABORED. NO S/S OF DISTRESS. NO C/O PAIN. CALL LIGHT WITHIN REACH. WILL CPOC.
[2018-07-31 20:00] VITALS: BP 127/69
[2018-08-01] VITALS: BP 142/77
[2018-08-01 04:00] VITALS: BP 140/76
[2018-08-01 08:18] VITALS: BP 155/81
--- NOTE | 2018-08-01 09:38 | NUR ---
TELEMETRY CAF. HR 98. RESP UL ON 02 2L NC. UD CONT PER RT. CALL LIGHT IN REACH. WILL CONT. PLAN OF CARE.
--- NOTE | 2018-08-01 09:39 | NUR ---
TELEMETRY SR. AT BS. IVETTEG TO LEFT FOOT CDI. CALL LIGHT IN REACH.
[2018-08-01 12:39] VITALS: BP 122/63
--- NOTE | 2018-08-01 16:08 | MORECARE ---
CASE MANAGEMENT DISCHARGE SUMMARY PATIENT: DAVID HOWELL UNIT: [id number] ADM DATE: 07/20/18 AGE: 78 : 40 SEX: M ROOM/BED: D.2452 AUTHOR: MATTHEW,DOC PHYSICIAN: REFERRING PHYSICIAN: GLORIA ARRINGTON MD DATE OF SERVICE: 08/01/18 Discharge Plan Patient Name: DAVID HOWELL Facility: [facility]:[place] : 1940 Planned Disposition: Home Anticipated Discharge Date: Discharge Date: Expected LOS: Initial Reviewer: [email or web address] Initial Review Date: 07/20/2018 Generated: 08/01/18 5:07 pm Comments DCP- Discharge Planning Updated by [email or web address]: Keyana Bunch on 08/01/18 3:[address] PLAN FOR POSSIBLE DISCHARGE HOME W/ IV ANTIBIOTIC THERAPY 08/02/18. REFERRAL SENT TO [facility] FOR [facility]. PATIENT WANTS THE MOST REASONABLE PROVIDER [employer]. HE HAD SIGNED FOR [facility]ALTH PROVIDER. TC TO [facility]. SPOKE WITH DINORAH HEIN. FAXED MD ORDER, ID NOTE AND HISTORY AND PHYSICAL. TC TO [facility] REGARDING REFERRAL. SPOKE W/ [place]. THE SCHEDULE WILL ALLOW FOR A SUNDAY ADMIT 08/04. SHE WILL ATTEMPT TO REARRANGE THE SCHEDULE IF POSSIBLE. CM FAXED REFERRAL INFORMATION. [facility] IS SCHEDULING INTO NEXT WEEK 08/06. [facility] IS SCHEDULING INTO NEXT WEEK 08/05. PATIENT HAS CARE IMPROVEMENT PLUS INSURANCE WHICH WILL REQUIRE A PREAUTH. DCP- Discharge Planning Updated by [email or web address]: Irina Pelayo on 07/23/18 11:[address] Patient Name: DAVID HOWELL Admission Status: ER Accout number: [id number] Admission Date: 07-20-2018 : 1940 Admission Diagnosis: Attending: GLORIA ARRINGTON Current LOS: 3 Anticipated DC Date: Planned Disposition: Home Primary Insurance: CARE IMPROVEMENT PLUS [facility] Discharge Planning Comments: CM met with patient to complete initial dc planning assessment. CM educated patient on the CM role and verbal consent given by patient to complete assessment. Patient lives at home with his where he is independent with is care. At discharge patient plans to return home and feels this is a safe discharge. CM discussed availability of home health, rehab services, and medical equipment. We talked about home health and iv abx as a possibility when he is discharged home. FALGUNI with [facility] and he would like to use the infusion company that is the cheapest out of pocket cost for him. We will wait to see if he needs this at dc. FALGUNI signed and placed in chart. Patient denied known discharge needs at this time. CM will continue to follow and will assist as needed with dc plans/needs. Cut Off Sawyer: Irina Pelayo DCPIA - Discharge Planning Initial Assessment Updated by [email or web address]: Irina Pelayo on 07/23/18 12:51 pm * Is the patient Alert and Oriented? Yes * How many steps to enter\exit or inside your home? * PCP [facility] * [facility] [address] * Preadmission Environment Home with Family * ADLs Independent * Equipment None * List name and contact numbers for known caregivers / representatives who currently or will assist patient after discharge: jovan () [phone] * Verbal permission to speak to the caregivers and representatives has been obtained from the patient. N/A * Community resources currently utilized None * Additional services required to return to the preadmission environment? Yes * Can the patient safely return to the preadmission environment? Yes * Has this patient been hospitalized within the prior 30 days at any hospital? No Coverage Notice Reviewer: [id number] - Irina Pelayo Notice Issued Date-Time: 07/23/2018 12:15 Notice Type: Patient Choice Letter Notice Delivered To: Patient Relationship to Patient: Street Light Wirer Name: Delivery Method: HAND - Hand Delivered Radha Days: Prior Verbal Notification: Recipient Understood Notice: Yes Recipient Signature: Yes Med Rec Note Co-signed by Attending: Coverage Notice Comment: Last DP export: 07/23/18 12:00 pm Patient Name: DAVID HOWELL Page [id number] at 1608 All edits/amendments must be made on the electronic document DICTATION DATE: 08/01/181606 OUTPATIENT PSYCHIATRIST: SENDY 08/01/181606 RPT#: [id number] RI DATE: STATUS: ADM IN [facility] [address] [place] [address] END OF REPORT
[2018-08-01 16:50] VITALS: BP 167/95
--- NOTE | 2018-08-01 19:56 | NUR ---
RESUMING PATIENT CARE. PATIENT IS ALERT AND ORIENTED, RESPIRATIONS ARE EVEN AND UNLABORED. NO S/S OF DISTRESS. NO C/O PAIN. CALL LIGHT WITHIN REACH. WILL CPOC.
[2018-08-01 21:04] VITALS: BP 172/87
[2018-08-02 01:29] VITALS: BP 188/116
[2018-08-02 05:18] LABS: BASOPHILS 0.2 % (0-2); EOSINOPHILS 1.4 % (0-7); HEMOGLOBIN 10.8 g/dL (13.5-17.5); IMMATURE GRANULOCYTES 0.6 % (0-5); MCH 32.6 pg (26.0-34.0); MCHC 34.8 g/dL (31.0-37.0); MCV 93.7 fL (80.0-100.0); MEAN PLATELET VOLUME 9.3 fL (7.4-10.4); MONOCYTES 11.7 % (2-11); NEUTROPHILS 72.1 % (40-80); PLATELET COUNT 386 10x3/uL (130-400); RBC 3.31 10x6/uL (4.20-6.10); RDW 14.1 % (11.5-14.5)
[2018-08-02 05:23] LABS: WBC 8.6 10x3/uL (4.8-10.8)
[2018-08-02 05:32] LABS: ALBUMIN 2.2 g/dL (3.4-5.0); ANION GAP 14.2 mmol/L (8-16); BILIRUBIN - TOTAL 0.61 mg/dL (0.2-1.3); CALCIUM 8.7 mg/dL (8.5-10.1); CARBON DIOXIDE 24.7 mmol/L (21.0-32.0); CREATININE - SERUM 1.4 mg/dL (0.6-1.3); MAGNESIUM - SERUM 1.4 mg/dL (1.8-2.4); POTASSIUM - SERUM 3.9 mmol/L (3.5-5.1); PROTEIN - SERUM 7.7 g/dL (6.4-8.2)
[2018-08-02 06:22] VITALS: BP 172/84
[2018-08-02 08:13] VITALS: BP 108/67
--- NOTE | 2018-08-02 10:57 | MORECARE ---
CASE MANAGEMENT DISCHARGE SUMMARY PATIENT: DAVID HOWELL UNIT: [id number] ADM DATE: 07/20/18 AGE: 78 : 40 SEX: M ROOM/BED: D.7180 AUTHOR: MATTHEW,GERALDINE PHYSICIAN: REFERRING PHYSICIAN: GLORIA ARRINGTON MD DATE OF SERVICE: 08/02/18 Discharge Plan Patient Name: DAVID HOWELL Facility: [facility]:[place] : 1940 Planned Disposition: Home Anticipated Discharge Date: Discharge Date: Expected LOS: Initial Reviewer: [id number] Initial Review Date: 07/20/2018 Generated: 08/02/18 11:57 am Comments DCP- Discharge Planning Updated by [id number]: Keyana Bunch on 08/02/18 9:[address] CM RECEIVED A TELEPHONE CALL FROM BRIDGETT WITH [employer] [facility]. THE CARE INPROVEMENT CONTRACT HAS NOT BEEN RENEWED W/ SHY[employer]NE AT THIS TIME. [employer] CANNOT ASSUME CARE. TC TO [facility]. LEFT VOICE MAIL MESSAGE W/ SAMANTA, THE LIAISON. SAMANTA VISITED ON SITE. CARE IV IS NOT CONTRACTED WITH [facility]. [facility] IS NOT ACCEPTING NEW REFERRALS DUE TO TRAINING FOR COMPUTER UPDATE. CM WENT TO UPDATE THE PATIENT. HE WAS SLEEPING SOUNDLY. WILL REVISIT. CM SPOKE W/ THE PRIMARY NURSE, RAJ. 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 CM WILL F/U. AWAIT AUTH FROM INSURANCE FOR MEDICATION. DCP- Discharge Planning Updated by [id number]: Keyana Bunch on 08/01/18 3:[address] PLAN FOR POSSIBLE DISCHARGE HOME W/ IV ANTIBIOTIC THERAPY 08/02/18. REFERRAL SENT TO [place] FOR PRICING. PATIENT WANTS THE MOST REASONABLE PROVIDER [employer]. HE HAD SIGNED FOR [employer] [facility] HOME HEALTH PROVIDER. TC TO [place]. SPOKE WITH DINORAH HEIN. FAXED MD ORDER, ID NOTE AND HISTORY AND PHYSICAL. TC TO [employer] REGARDING REFERRAL. SPOKE W/ BRIDGETT. THE SCHEDULE WILL ALLOW FOR A SUNDAY ADMIT 08/04. SHE WILL ATTEMPT TO REARRANGE THE SCHEDULE IF POSSIBLE. CM FAXED REFERRAL INFORMATION. [facility] IS SCHEDULING INTO NEXT WEEK 08/06. [facility] IS SCHEDULING INTO NEXT WEEK 08/05. PATIENT HAS CARE IMPROVEMENT PLUS INSURANCE WHICH WILL REQUIRE A PREAUTH. DCP- Discharge Planning Updated by [id number]: Irina Pelayo on 07/23/18 11:[address] Patient Name: DAVID HOWELL Admission Status: ER Accout number: [id number] Admission Date: 07-20-2018 : 1940 Admission Diagnosis: Attending: GLORIA ARRINGTON Current LOS: 3 Anticipated DC Date: Planned Disposition: Home Primary Insurance: CARE IMPROVEMENT PLUS [facility] Discharge Planning Comments: CM met with patient to complete initial dc planning assessment. CM educated patient on the CM role and verbal consent given by patient to complete assessment. Patient lives at home with his where he is independent with is care. At discharge patient plans to return home and feels this is a safe discharge. CM discussed availability of home health, rehab services, and medical equipment. We talked about home health and iv abx as a possibility when he is discharged home. FALGUNI with [facility] and he would like to use the infusion company that is the cheapest out of pocket cost for him. We will wait to see if he needs this at [place]. FALGUNI signed and placed in chart. Patient denied known discharge needs at this time. CM will continue to follow and will assist as needed with dc plans/needs. Kennel Helper: Irina Pelayo DCPIA - Discharge Planning Initial Assessment Updated by [id number]: Irina Pelayo on 07/23/18 12:51 pm * Is the patient Alert and Oriented? Yes * How many steps to enter\exit or inside your home? * PCP [facility] * [facility] [address] * Preadmission Environment Home with Family * ADLs Independent * Equipment None * List name and contact numbers for known caregivers / representatives who currently or will assist patient after discharge: jovan () [phone] * Verbal permission to speak to the caregivers and representatives has been obtained from the patient. N/A * Community resources currently utilized None * Additional services required to return to the preadmission environment? Yes * Can the patient safely return to the preadmission environment? Yes * Has this patient been hospitalized within the prior 30 days at any hospital? No Coverage Notice Reviewer: [id number] - Irina Pelayo Notice Issued Date-Time: 07/23/2018 12:15 Notice Type: Patient Choice Letter Notice Delivered To: Patient Relationship to Patient: Creative Writer Name: Delivery Method: HAND - Hand Delivered Radha Days: Prior Verbal Notification: Recipient Understood Notice: Yes Recipient Signature: Yes Med Rec Note Co-signed by Attending: Coverage Notice Comment: Last DP export: 08/01/18 3:07 p Patient Name: DAVID HOWELL Page [id number] at 1057 All edits/amendments must be made on the electronic document DICTATION DATE: 08/02/181056 APPRENTICE PHOTOGRAPHER: SENDY 08/02/18 1057 RPT#: [id number] DC DATE: STATUS: ADM IN [facility] [address] [place] [address] END OF REPORT
[2018-08-02 11:45] VITALS: BP 149/92
[2018-08-02] MEDS ORDERED: FLORAJEN3 CAPS460 MG PO (14:27)
[2018-08-02] MEDS ORDERED: INVANZ 1 GM/NS 11 G1 IV (14:27)
[2018-08-02] MEDS ORDERED: PROTONIX40 MG PO (14:28)
[2018-08-02] MEDS ORDERED: XARELTO15 MG PO (14:28)
--- NOTE | 2018-08-02 14:29 | NUR ---
NUtrition follow-up: Diet: ADA PO intake 75% average of meals; has been NPO for some meals Labs reviewed; Glucose elevated +BM Wt: 176# RDN following.
[2018-08-02 16:29] VITALS: BP 138/74
--- NOTE | 2018-08-02 17:48 | NUR ---
CONSENTS SIGNED FOR SURGERY.
--- NOTE | 2018-08-02 19:31 | MORECARE ---
CASE MANAGEMENT DISCHARGE SUMMARY PATIENT: DAVID HOWELL UNIT: [id number] ADM DATE: 07/20/18 AGE: 78 : 40 SEX: M ROOM/BED: D.9106 AUTHOR: MATTHEW,DOC PHYSICIAN: REFERRING PHYSICIAN: GLORIA ARRINGTON MD DATE OF SERVICE: 08/02/18 Discharge Plan Patient Name: DAVID HOWELL Facility: [facility]:[place] : 1940 Planned Disposition: Home Anticipated Discharge Date: 08/03/18 Discharge Date: Expected LOS: 14 Initial Reviewer: [id number] Initial Review Date: 07/20/2018 Generated: 08/02/18 8:31 pm Comments DCP- Discharge Planning Updated by [id number]: Keyana Bunch on 08/02/18 9:[address] CM RECEIVED A TELEPHONE CALL FROM BRIDGETT WITH [employer] [facility]. THE CARE INPROVEMENT CONTRACT HAS NOT BEEN RENEWED W/ SHYANNE AT THIS TIME. [employer] CANNOT ASSUME CARE. TC TO [facility]ARE [facility]. LEFT VOICE MAIL MESSAGE W/ SAMANTA, THE LIAISON. SAMANTA VISITED ON SITE. CARE IV IS NOT CONTRACTED WITH [facility]. [facility] IS NOT ACCEPTING NEW REFERRALS DUE TO TRAINING FOR COMPUTER UPDATE. CM WENT TO UPDATE THE PATIENT. HE WAS SLEEPING SOUNDLY. WILL REVISIT. CM SPOKE W/ THE PRIMARY NURSE, RAJ. 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 CM WILL F/U. AWAIT AUTH FROM INSURANCE FOR MEDICATION. DCP- Discharge Planning Updated by [id number]: Keyana Bunch on 08/01/18 3:[address] PLAN FOR POSSIBLE DISCHARGE HOME W/ IV ANTIBIOTIC THERAPY 08/02/18. REFERRAL SENT TO [place] FOR PRICING. PATIENT WANTS THE MOST REASONABLE PROVIDER [employer]. HE HAD SIGNED FOR [employer] [facility] HOME HEALTH PROVIDER. TC TO [place]. SPOKE WITH DINORAH HEIN. FAXED ORDER, ID NOTE AND HISTORY AND PHYSICAL. TC TO [employer] [facility] REGARDING REFERRAL. SPOKE W/ BRIDGETT. THE SCHEDULE WILL ALLOW FOR A SUNDAY ADMIT 08/04. SHE WILL ATTEMPT TO REARRANGE THE SCHEDULE IF POSSIBLE. CM FAXED REFERRAL INFORMATION. [facility] IS SCHEDULING INTO NEXT WEEK 08/06. [facility] IS SCHEDULING INTO NEXT WEEK 08/05. PATIENT HAS CARE IMPROVEMENT PLUS INSURANCE WHICH WILL REQUIRE A PREAUTH. DCP- Discharge Planning Updated by [id number]: Irina Pelayo on 07/23/18 11:[address] Patient Name: DAVID HOWELL Admission Status: ER Accout number: [id number] Admission Date: 07-20-2018 : 1940 Admission Diagnosis: Attending: GLORIA ARRINGTON Current LOS: 3 Anticipated DC Date: Planned Disposition: Home Primary Insurance: CARE IMPROVEMENT PLUS [facility] Discharge Planning Comments: CM met with patient to complete initial dc planning assessment. CM educated patient on the CM role and verbal consent given by patient to complete assessment. Patient lives at home with his where he is independent with is care. At discharge patient plans to return home and feels this is a safe discharge. CM discussed availability of home health, rehab services, and medical equipment. We talked about home health and iv abx as a possibility when he is discharged home. FALGUNI with [facility] and he would like to use the infusion company that is the cheapest out of pocket cost for him. We will wait to see if he needs this at [place]. FALGUNI signed and placed in chart. Patient denied known discharge needs at this time. CM will continue to follow and will assist as needed with dc plans/needs. Beet Topper: Irina Pelayo DCPIA - Discharge Planning Initial Assessment Updated by [id number]: Irina Pelayo on 07/23/18 12:51 pm * Is the patient Alert and Oriented? Yes * How many steps to enter\exit or inside your home? * PCP [facility] * [facility] [address] * Preadmission Environment Home with Family * ADLs Independent * Equipment None * List name and contact numbers for known caregivers / representatives who currently or will assist patient after discharge: jovan () [phone] * Verbal permission to speak to the caregivers and representatives has been obtained from the patient. N/A * Community resources currently utilized None * Additional services required to return to the preadmission environment? Yes * Can the patient safely return to the preadmission environment? Yes * Has this patient been hospitalized within the prior 30 days at any hospital? No Coverage Notice Reviewer: [id number] - Irina Pelayo Notice Issued Date-Time: 07/23/2018 12:15 Notice Type: Patient Choice Letter Notice Delivered To: Patient Relationship to Patient: Supervisor Accounting Clerks Name: Delivery Method: HAND - Hand Delivered Radha Days: Prior Verbal Notification: Recipient Understood Notice: Yes Recipient Signature: Yes Med Rec Note Co-signed by Attending: Coverage Notice Comment: Last DP export: 08/02/18 9:57 a Patient Name: DAVID HOWELL Page [id number] at 1931 All edits/amendments must be made on the electronic document DICTATION DATE: 08/02/181929 EUCLID OPERATOR: SENDY 08/02/181929 RPT#: [id number] DC DATE: STATUS: ADM IN [facility] [address] [place] [address] END OF REPORT
--- NOTE | 2018-08-02 19:39 | MORECARE ---
CASE MANAGEMENT DISCHARGE SUMMARY PATIENT: DAVID HOWELL UNIT: [id number] ADM DATE: 07/20/18 AGE: 78 : 40 SEX: M ROOM/BED: D.5804 AUTHOR: MATTHEW,DOC PHYSICIAN: REFERRING PHYSICIAN: GLORIA ARRINGTON MD DATE OF SERVICE: 08/02/18 Discharge Plan Patient Name: DAVID HOWELL Facility: [facility]:[place] : 1940 Planned Disposition: Home Anticipated Discharge Date: 08/03/18 Discharge Date: Expected LOS: 14 Initial Reviewer: [id number] Initial Review Date: 07/20/2018 Generated: 08/02/18 8:39 pm Comments DCP- Discharge Planning Updated by [id number]: Keyana Bunch on 08/02/18 6:[address] 1500 ANA NURSE, DINORAH HEIN , ON SITE TO TEACH THE PATIENT'S . AWAITED 'S ARRIVAL. 1630 DR QUINTANA, PODIATRY, VISITED . DRESSING CHANGED AND WOUND ASSESSED. 1645 PRIMARY NURSE ADVISED DISCHARGE IS CANCELLED FOR TODAY. PATIENT WILL BE GOING TO SURGERY TOMORROW W/ DR QUINTANA. ANA INFUSION, DINORAH HEIN, AWARE. ALL NECESSARY INFORMATION HAD BEEN PROVIDED FOR START OF CARE. SHE HAD PATIENT SUPPLIES. TC TO [facility]. ALL INFORMATION HAD BEEN FAXED AND VISIT WAS SCHEDULED FOR SUNDAY. CM WILL NEED TO NOTIFY [facility] WHEN PATIENT IS DISCHARGED DCP- Discharge Planning Updated by [id number]: Keyana Bunch on 08/02/18 9:[address] CM RECEIVED A TELEPHONE CALL FROM BRIDGETT WITH [employer] [facility]. THE CARE INPROVEMENT CONTRACT HAS NOT BEEN RENEWED W/ [facility] AT THIS TIME. [facility] CANNOT ASSUME CARE. TC TO [facility]. LEFT VOICE MAIL MESSAGE W/ SAMANTA, THE LIAISON. SAMANTA VISITED ON SITE. CARE IV IS NOT CONTRACTED WITH [facility]. [facility] IS NOT ACCEPTING NEW REFERRALS DUE TO TRAINING FOR COMPUTER UPDATE. CM WENT TO UPDATE THE PATIENT. HE WAS SLEEPING SOUNDLY. WILL REVISIT. CM SPOKE W/ THE PRIMARY NURSE, RAJ. 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 CM WILL F/U. AWAIT AUTH FROM INSURANCE FOR MEDICATION. DCP- Discharge Planning Updated by [id number]: Keyana Bunch on 08/01/18 3:[address] PLAN FOR POSSIBLE DISCHARGE HOME W/ IV ANTIBIOTIC THERAPY 08/02/18. REFERRAL SENT TO [place] FOR PRICING. PATIENT WANTS THE MOST REASONABLE PROVIDER [employer]. HE HAD SIGNED FOR [facility] HOME HEALTH PROVIDER. TC TO [place]. SPOKE WITH DINORAH HEIN. FAXED MD ORDER, ID NOTE AND HISTORY AND PHYSICAL. TC TO [facility] REGARDING REFERRAL. SPOKE W/ BRIDGETT. THE SCHEDULE WILL ALLOW FOR A SUNDAY ADMIT 08/04. SHE WILL ATTEMPT TO REARRANGE THE SCHEDULE IF POSSIBLE. CM FAXED REFERRAL INFORMATION. [facility] IS SCHEDULING INTO NEXT WEEK 08/06. [facility] IS SCHEDULING INTO NEXT WEEK 08/05. PATIENT HAS CARE IMPROVEMENT PLUS INSURANCE WHICH WILL REQUIRE A PREAUTH. DCP- Discharge Planning Updated by [id number]: Irina Pelayo on 07/23/18 11:[address] Patient Name: DAVID HOWLEL Admission Status: ER Accout number: [id number] Admission Date: 07-20-2018 : 1940 Admission Diagnosis: Attending: GLORIA ARRINGTON Current LOS: 3 Anticipated DC Date: Planned Disposition: Home Primary Insurance: CARE IMPROVEMENT PLUS [facility] Discharge Planning Comments: CM met with patient to complete initial dc planning assessment. CM educated patient on the CM role and verbal consent given by patient to complete assessment. Patient lives at home with his where he is independent with is care. At discharge patient plans to return home and feels this is a safe discharge. CM discussed availability of home health, rehab services, and medical equipment. We talked about home health and iv abx as a possibility when he is discharged home. FALGUNI with [facility] and he would like to use the infusion company that is the cheapest out of pocket cost for him. We will wait to see if he needs this at [place]. FALGUNI signed and placed in chart. Patient denied known discharge needs at this time. CM will continue to follow and will assist as needed with dc plans/needs. Crabber: Irina Pelayo DCPIA - Discharge Planning Initial Assessment Updated by [id number]: Irina Pelayo on 07/23/18 12:51 pm * Is the patient Alert and Oriented? Yes * How many steps to enter\exit or inside your home? * PCP [facility] * [facility] [address] * Preadmission Environment Home with Family * ADLs Independent * Equipment None * List name and contact numbers for known caregivers / representatives who currently or will assist patient after discharge: jovan () [phone] * Verbal permission to speak to the caregivers and representatives has been obtained from the patient. N/A * Community resources currently utilized None * Additional services required to return to the preadmission environment? Yes * Can the patient safely return to the preadmission environment? Yes * Has this patient been hospitalized within the prior 30 days at any hospital? No Coverage Notice Reviewer: [id number] Teodoro Pelayo Notice Issued Date-Time: 07/23/2018 12:15 Notice Type: Patient Choice Letter Notice Delivered To: Patient Relationship to Patient: Crane Manager Name: Delivery Method: HAND - Hand Delivered Radha Days: Prior Verbal Notification: Recipient Understood Notice: Yes Recipient Signature: Yes Med Rec Note Co-signed by Attending: Coverage Notice Comment: Last DP export: 08/02/18 6:31 p Patient Name: DAVID HOWELL Page [phone] at 1939 All edits/amendments must be made on the electronic document DICTATION DATE: 08/02/181937 MOLASSES AND CARAMEL OPERATOR: SENDY 08/02/181937 RPT#: [id number] DC DATE: STATUS: ADM IN [facility] [address] [place] [address] END OF REPORT
[2018-08-02 20:00] VITALS: BP 153/85
--- NOTE | 2018-08-02 20:00 | NUR ---
INITIAL ROUNDS AND ASSESSMENT COMPLETED. PT RESTING. ROUSES UP EASILY. IV LR AT [facility] TO MUNIRA PICC LINE. LEFT FOOT DRESSING C/D/I, CHANGED PER MD EARLIER. FSBS 274, GAVE 6 UNITS OF SLIDING SCALE. MONITOR AND CPOC.
--- NOTE | 2018-08-02 20:00 | NUR ---
PT AWAKE AND REQUESTING SOMETHING TO HELP HIM SLEEP. AGREED ON TAKING A NORCO TO HELP PROMOTE COMFORT. IV ABT UP AND INFUSING. NPO FOR AM SURGERY.
--- NOTE | 2018-08-03 00:01 | NUR ---
INSTRUCT ON NPO FOR AM SURGERY PER DR QUINTANA. PT VOICES UNDERSTANDING.
[2018-08-03 04:00] VITALS: BP 138/64
[2018-08-03 04:46] LABS: BASOPHILS 0.2 % (0-2); HEMATOCRIT 29.7 % (42.0-54.0); HEMOGLOBIN 10.2 g/dL (13.5-17.5); IMMATURE GRANULOCYTES 0.4 % (0-5); LYMPHOCYTES 12.9 % (15-50); MCH 32.3 pg (26.0-34.0); MCHC 34.3 g/dL (31.0-37.0); MEAN PLATELET VOLUME 9.2 fL (7.4-10.4); MONOCYTES 10.3 % (2-11); NEUTROPHILS 75.2 % (40-80); PLATELET COUNT 363 10x3/uL (130-400); RBC 3.16 10x6/uL (4.20-6.10); RDW 14.3 % (11.5-14.5); WBC 9.3 10x3/uL (4.8-10.8)
[2018-08-03 05:01] LABS: ANION GAP 13.3 mmol/L (8-16); CALCIUM 8.6 mg/dL (8.5-10.1); CARBON DIOXIDE 23.9 mmol/L (21.0-32.0); CREATININE - SERUM 1.4 mg/dL (0.6-1.3); MAGNESIUM - SERUM 1.6 mg/dL (1.8-2.4); POTASSIUM - SERUM 4.2 mmol/L (3.5-5.1)
[2018-08-03 08:33] VITALS: BP 121/71
--- NOTE | 2018-08-03 09:30 | NUR ---
PRE-OPS GIVEN. TO OR BY BED.
--- NOTE | 2018-08-03 11:04 | NUR ---
BACK FROM OR. LEFT FOOT DRSG CDI. DIET AND MEDS RESUMED.
[2018-08-03 12:16] VITALS: BP 107/60
[2018-08-03 15:45] VITALS: BP 132/72
--- NOTE | 2018-08-03 19:47 | NUR ---
INITIAL ROUNDS AND ASSESSMENT COMPLETED. PT RESTING. NO DISTRESS. MONITOR AND CPOC. CALL LIGHT IN REACH.
--- NOTE | 2018-08-03 20:33 | NUR ---
BEDTIME MEDS GIVEN. IV ABT UP AND INFUSING. ASSISTED UP TO BATHROOM AND HAD LARGE BM. BACK TO BED. LEFT FOOT DRESSED C/D/I.
[2018-08-03 23:57] VITALS: BP 142/72
--- NOTE | 2018-08-04 01:36 | NUR ---
PT RESTING WITH NO DISTRESS. IV ABT UP AND INFUSING. CALL LIGHT IN REACH.
--- NOTE | 2018-08-04 03:50 | NUR ---
RESTING WITH NO DISTRESS. EYES CLOSED. RESPS EVEN/NONLABOED. IVF AT [facility] INFUSING. CLEAN/DRY. MONITOR AND CPOC.
[2018-08-04 05:03] LABS: BASOPHILS 0.5 % (0-2); EOSINOPHILS 1.7 % (0-7); HEMATOCRIT 27.4 % (42.0-54.0); HEMOGLOBIN 9.6 g/dL (13.5-17.5); IMMATURE GRANULOCYTES 0.5 % (0-5); LYMPHOCYTES 14.8 % (15-50); MCH 32.7 pg (26.0-34.0); MCV 93.2 fL (80.0-100.0); MEAN PLATELET VOLUME 8.9 fL (7.4-10.4); MONOCYTES 13.4 % (2-11); NEUTROPHILS 69.1 % (40-80); PLATELET COUNT 323 10x3/uL (130-400); RBC 2.94 10x6/uL (4.20-6.10); RDW 14.2 % (11.5-14.5); WBC 8.6 10x3/uL (4.8-10.8)
[2018-08-04 05:19] LABS: ANION GAP 14.7 mmol/L (8-16); CALCIUM 8.4 mg/dL (8.5-10.1); CARBON DIOXIDE 24.2 mmol/L (21.0-32.0); CREATININE - SERUM 1.5 mg/dL (0.6-1.3); MAGNESIUM - SERUM 1.4 mg/dL (1.8-2.4); POTASSIUM - SERUM 3.9 mmol/L (3.5-5.1)
[2018-08-04 05:38] VITALS: BP 121/61
--- NOTE | 2018-08-04 08:30 | NUR ---
DRSG CHANGED TO LEFT FOOT BY PHYSICIAN. AT BS. CALL LIGHT IN REACH. WILL CONT. PLAN OF CARE.
[2018-08-04 08:31] VITALS: BP 124/76
[2018-08-04 12:06] VITALS: BP 145/84
--- NOTE | 2018-08-04 14:04 | NUR ---
OOB TO BR FOR BATH AND LINEN CHANGE. STATES WEAKNESS, SHAKEY AND TURNED WHITE WHEN ASSISTNG BACK TO BED. B/P 138/69, HR 97, 02 SAT 100%. WILL CONT. TO MONITOR.
[2018-08-04 15:04] VITALS: BP 116/69
--- NOTE | 2018-08-04 19:41 | NUR ---
INITIAL ROUNDS AND ASSESSMENT COMPLETED. PT RESTING IN BED. NO DISTRESS. MONITOR AND CPOC. CALL LIGHT IN REACH.
[2018-08-04 20:00] VITALS: BP 115/60
--- NOTE | 2018-08-04 21:49 | NUR ---
BEDTIME MEDS GIVEN. PT RESTING IN BED AND EATING A SNACK. DRESSING TO LEFT FOOT C/D/I. FSBS 295 WITH SLIDING SCALE INSULIN ADMINISTERED. IV ABT UP AND INFUSING. CALL LIGHT IN REACH. MONITOR AND CPOC.
[2018-08-05] VITALS: BP 104/57
--- NOTE | 2018-08-05 01:20 | NUR ---
AWAKE,WATCHING TV. REQUESTS PAIN MED FOR LEG/GENERALIZED DISCOMFORT.MEDICATED WITH NORCO X 1. ALSO SCHEDULED ABT UP AND INFUSING.
[2018-08-05 04:00] VITALS: BP 102/54
[2018-08-05 06:09] LABS: ANION GAP 13.4 mmol/L (8-16); CALCIUM 8.7 mg/dL (8.5-10.1); CARBON DIOXIDE 25.4 mmol/L (21.0-32.0); CREATININE - SERUM 1.7 mg/dL (0.6-1.3); MAGNESIUM - SERUM 1.5 mg/dL (1.8-2.4); POTASSIUM - SERUM 3.8 mmol/L (3.5-5.1)
[2018-08-05 06:17] LABS: BASOPHILS 0.3 % (0-2); EOSINOPHILS 2.9 % (0-7); HEMATOCRIT 25.7 % (42.0-54.0); HEMOGLOBIN 8.9 g/dL (13.5-17.5); IMMATURE GRANULOCYTES 0.3 % (0-5); LYMPHOCYTES 22.7 % (15-50); MCH 32.1 pg (26.0-34.0); MCHC 34.6 g/dL (31.0-37.0); MCV 92.8 fL (80.0-100.0); MEAN PLATELET VOLUME 9.2 fL (7.4-10.4); MONOCYTES 13.7 % (2-11); NEUTROPHILS 60.1 % (40-80); PLATELET COUNT 300 10x3/uL (130-400); RBC 2.77 10x6/uL (4.20-6.10); WBC 6.6 10x3/uL (4.8-10.8)
--- NOTE | 2018-08-05 07:36 | NUR ---
ROUNDING DOWN WITH PATIENT VOICING NO NEEDS. ON ROOM AIR. LEFT UPPER PICC LINE SEEN SALINE LOCK, ORANGE SWAB CAPS IN USE. BILATERAL BLUE FOOT BOOTIES, LEFT LEFT FOOT UP ON PILLOW.
--- NOTE | 2018-08-05 07:43 | NUR ---
WAS NOT TOLD IN REPORT, PATIENT IS EP. MAG 1.5. WILL COVER WITH ORAL SUPPLEMENTS.
--- NOTE | 2018-08-05 08:25 | MORECARE ---
CASE MANAGEMENT DISCHARGE SUMMARY PATIENT: DAVID HOWELL UNIT: [id number] ADM DATE: 07/20/18 AGE: 78 : 40 SEX: M ROOM/BED: D.2525 AUTHOR: MATTHEW,DOC PHYSICIAN: REFERRING PHYSICIAN: GLORIA ARRINGTON MD DATE OF SERVICE: 08/05/18 Discharge Plan Patient Name: DAVID HOWELL Facility: [facility]:[place] : 1940 Planned Disposition: Home Anticipated Discharge Date: 08/05/18 Discharge Date: Expected LOS: 16 Initial Reviewer: [email or web address] Initial Review Date: 07/20/2018 Generated: 08/05/18 9:25 am Comments DCP- Discharge Planning Updated by [id number]: Keyana Bunch on 08/02/18 6:[address] 1500 ANA NURSE, DINORAH HEIN , ON SITE TO TEACH THE PATIENT'S . AWAITED 'S ARRIVAL. 1630 DR QUINTANA, PODIATRY, VISITED . DRESSING CHANGED AND WOUND ASSESSED. 1645 PRIMARY NURSE ADVISED DISCHARGE IS CANCELLED FOR TODAY. PATIENT WILL BE GOING TO SURGERY TOMORROW W/ DR QUINTANA. ANA INFUSION, DINORAH HEIN, AWARE. ALL NECESSARY INFORMATION HAD BEEN PROVIDED FOR START OF CARE. SHE HAD PATIENT SUPPLIES. TC TO [facility]. ALL INFORMATION HAD BEEN FAXED AND VISIT WAS SCHEDULED FOR SUNDAY. CM WILL NEED TO NOTIFY [facility] WHEN PATIENT IS DISCHARGED DCP- Discharge Planning Updated by [id number]: Keyana Bunch on 08/02/18 9:[address] CM RECEIVED A TELEPHONE CALL FROM BRIDGETT WITH [employer] [facility]. THE CARE INPROVEMENT CONTRACT HAS NOT BEEN RENEWED W/ [email or web address] AT THIS TIME. [email or web address] CANNOT ASSUME CARE. TC TO [facility]. LEFT VOICE MAIL MESSAGE W/ SAMANTA, THE LIAISON. SAMANTA VISITED ON SITE. CARE IV IS NOT CONTRACTED WITH [facility]. [facility] IS NOT ACCEPTING NEW REFERRALS DUE TO TRAINING FOR COMPUTER UPDATE. CM WENT TO UPDATE THE PATIENT. HE WAS SLEEPING SOUNDLY. WILL REVISIT. CM SPOKE W/ THE PRIMARY NURSE, RAJ. 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 CM WILL F/U. AWAIT AUTH FROM INSURANCE FOR MEDICATION. DCP- Discharge Planning Updated by [id number]: Keyana Bunch on 08/01/18 3:[address] PLAN FOR POSSIBLE DISCHARGE HOME W/ IV ANTIBIOTIC THERAPY 08/02/18. REFERRAL SENT TO [place] FOR PRICING. PATIENT WANTS THE MOST REASONABLE PROVIDER [employer]. HE HAD SIGNED FOR [email or web address] [facility] HOME HEALTH PROVIDER. TC TO [facility]. SPOKE WITH DINORAH HEIN. FAXED MD ORDER, ID NOTE AND HISTORY AND PHYSICAL. TC TO [email or web address] [facility] REGARDING REFERRAL. SPOKE W/ BRIDGETT. THE SCHEDULE WILL ALLOW FOR A SUNDAY ADMIT 08/04. SHE WILL ATTEMPT TO REARRANGE THE SCHEDULE IF POSSIBLE. CM FAXED REFERRAL INFORMATION. [facility] IS SCHEDULING INTO NEXT WEEK 08/06. CARE [facility] IS SCHEDULING INTO NEXT WEEK 08/05. PATIENT HAS CARE IMPROVEMENT PLUS INSURANCE WHICH WILL REQUIRE A PREAUTH. DCP- Discharge Planning Updated by [id number]: Irina Pelayo on 07/23/18 11:[address] Patient Name: DAVID HOWELL Admission Status: ER Accout number: [id number] Admission Date: 07-20-2018 : 1940 Admission Diagnosis: Attending: GLORIA ARRINGTON Current LOS: 3 Anticipated DC Date: Planned Disposition: Home Primary Insurance: CARE IMPROVEMENT PLUS [facility] Discharge Planning Comments: CM met with patient to complete initial dc planning assessment. CM educated patient on the CM role and verbal consent given by patient to complete assessment. Patient lives at home with his where he is independent with is care. At discharge patient plans to return home and feels this is a safe discharge. CM discussed availability of home health, rehab services, and medical equipment. We talked about home health and iv abx as a possibility when he is discharged home. FALGUNI with [facility] and he would like to use the infusion company that is the cheapest out of pocket cost for him. We will wait to see if he needs this at [place]. FALGUNI signed and placed in chart. Patient denied known discharge needs at this time. CM will continue to follow and will assist as needed with dc plans/needs. Job Site Superintendent: Irina Pelayo DCPIA - Discharge Planning Initial Assessment Updated by [email or web address]: Irina Pelayo on 07/23/18 12:51 pm * Is the patient Alert and Oriented? Yes * How many steps to enter\exit or inside your home? * PCP [facility] * [facility] [address] * Preadmission Environment Home with Family * ADLs Independent * Equipment None * List name and contact numbers for known caregivers / representatives who currently or will assist patient after discharge: jovan () [phone] * Verbal permission to speak to the caregivers and representatives has been obtained from the patient. N/A * Community resources currently utilized None * Additional services required to return to the preadmission environment? Yes * Can the patient safely return to the preadmission environment? Yes * Has this patient been hospitalized within the prior 30 days at any hospital? No Coverage Notice Reviewer: [id number] Teodoro Pelayo Notice Issued Date-Time: 07/23/2018 12:15 Notice Type: Patient Choice Letter Notice Delivered To: Patient Relationship to Patient: Grocery Caddy Name: Delivery Method: HAND - Hand Delivered Radha Days: Prior Verbal Notification: Recipient Understood Notice: Yes Recipient Signature: Yes Med Rec Note Co-signed by Attending: Coverage Notice Comment: Last DP export: 08/02/18 6:39 p Patient Name: DAVID HOWELL Page 47338 at 0825 All edits/amendments must be made on the electronic document DICTATION DATE: 08/05/18823 RISK ADJUSTMENT SPECIALIST: SENDY 08/05/18823 RPT#: [id number] DC DATE: STATUS: ADM IN [facility] [address] [place] [address] END OF REPORT
[2018-08-05 09:04] VITALS: BP 100/62
--- NOTE | 2018-08-05 11:08 | NUR ---
1100-[facility] CALLED R/T POC GLUCOSE OF 417. NO NEW ORDERS.
--- NOTE | 2018-08-05 13:46 | NUR ---
PATIENT IS MADE AWARE OF NOT BEING ABLE TO BE DISCHARGED HOME PER DR ALLRED WANTED. DR ESPOSITO WANTED TO WATCH BLOOD COUNT "ONE MORE NIGHT".
--- NOTE | 2018-08-05 16:31 | MORECARE ---
CASE MANAGEMENT DISCHARGE SUMMARY PATIENT: DAVID HOWELL UNIT: [id number] ADM DATE: 07/20/18 AGE: 78 : 40 SEX: M ROOM/BED: D.2082 AUTHOR: MATTHEW,GERALDINE PHYSICIAN: REFERRING PHYSICIAN: GLORIA ARRINGTON MD DATE OF SERVICE: 08/05/18 Discharge Plan Patient Name: DAVID HOWELL Facility: [facility]:[place] : 1940 Planned Disposition: Home Anticipated Discharge Date: 08/06/18 Discharge Date: Expected LOS: 17 Initial Reviewer: [id number] Initial Review Date: 07/20/2018 Generated: 08/05/18 5:30 pm Comments DCP- Discharge Planning Updated by [id number]: Hi Gonzales on 08/05/18 3:[address] Patient Name: DAVID HOWELL Encounter No: [id number] : 1940 Primary Insurance: CARE IMPROVEMENT PLUS [facility] Anticipated DC Date: 08-06-2018 Planned Disposition: Home WITH HOME HEALTH External Planned Provider: [facility], [facility] DCP follow-up note: CM RECEIVED CALL FROM DINORAH HEIN [facility], , INFORMED HER THAT PT WILL NOT DISCHARGE HOME TODAY, MAY DISCHARGE TOMORROW. DINORAH HEIN WILL CALL AND INFORM [facility]. CM SPOKE TO PT IN ROOM, PT REPORTS AGREEMENT WITH DISCHARGE HOME TOMORROW, REPORTS HIS IS A NURSE AND CAN DO WOUND CARE AND INFUSION AT HOME. PT DENIES FURTHER NEEDS. IMPORTANT MESSAGE FROM MEDICARE PROVIDED AND EXPLAINED. FOR DISCHARGE, NOTIFY DINORAH HEIN OF [place] AT [phone], FAX DISCHARGE INFORMATION TO [facility] AT [phone]. NOTIFY [facility], , FAX DISCHARGE INFORMATION TO [facility], . HOME INFUSION TO BEGIN ON 08-06 AT 1730 HOURS. Hi Gonzales, CASE MANAGEMENT DCP- Discharge Planning Updated by [id number]: Keyana Bunch on 08/02/18 6:[address] 1500 [place] NURSE, DINORAH HEIN , ON SITE TO TEACH THE PATIENT'S . AWAITED 'S ARRIVAL. 1630 DR QUINTANA, PODIATRY, VISITED . DRESSING CHANGED AND WOUND ASSESSED. 1644 PRIMARY NURSE ADVISED DISCHARGE IS CANCELLED FOR TODAY. PATIENT WILL BE GOING TO SURGERY TOMORROW W/ DR QUINTANA. [facility] INFUSION, DINORAH HEIN, AWARE. ALL NECESSARY INFORMATION HAD BEEN PROVIDED FOR START OF CARE. SHE HAD PATIENT SUPPLIES. TC TO [facility]. ALL INFORMATION HAD BEEN FAXED AND VISIT WAS SCHEDULED FOR SUNDAY. CM WILL NEED TO NOTIFY [facility] WHEN PATIENT IS DISCHARGED DCP- Discharge Planning Updated by [id number]: Keyana Bunch on 08/02/18 9:[address] CM RECEIVED A TELEPHONE CALL FROM BRIDGETT WITH [facility]. THE CARE INPROVEMENT CONTRACT HAS NOT BEEN RENEWED W/ SHYANNE AT THIS TIME. [employer] CANNOT ASSUME CARE. TC TO [facility]. LEFT VOICE MAIL MESSAGE W/ SAMANTA, THE LIAISON. SAMANTA VISITED ON SITE. [facility] IS NOT CONTRACTED WITH [facility]. [facility] IS NOT ACCEPTING NEW REFERRALS DUE TO TRAINING FOR COMPUTER UPDATE. CM WENT TO UPDATE THE PATIENT. HE WAS SLEEPING SOUNDLY. WILL REVISIT. CM SPOKE W/ THE PRIMARY NURSE, RAJ. 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 CM WILL F/U. AWAIT AUTH FROM INSURANCE FOR MEDICATION. DCP- Discharge Planning Updated by [id number]: Keyana Bunch on 08/01/18 3:[address] PLAN FOR POSSIBLE DISCHARGE HOME W/ IV ANTIBIOTIC THERAPY 08/02/18. REFERRAL SENT TO [facility] FOR PRICING. PATIENT WANTS THE MOST REASONABLE PROVIDER [employer]ST[employer]. HE HAD SIGNED FOR [facility] HOME HEALTH PROVIDER. TC TO [facility]. SPOKE WITH DINORAH HEIN. FAXED MD ORDER, ID NOTE AND HISTORY AND PHYSICAL. TC TO [facility] REGARDING REFERRAL. SPOKE W/ BRIDGETT. THE SCHEDULE WILL ALLOW FOR A SUNDAY ADMIT 08/04. SHE WILL ATTEMPT TO REARRANGE THE SCHEDULE IF POSSIBLE. CM FAXED REFERRAL INFORMATION. [facility] IS SCHEDULING INTO NEXT WEEK 08/06. [facility] IS SCHEDULING INTO NEXT WEEK 08/05. PATIENT HAS CARE IMPROVEMENT PLUS INSURANCE WHICH WILL REQUIRE A PREAUTH. DCP- Discharge Planning Updated by [id number]: Irina Pelayo on 07/23/18 11:[address] Patient Name: DAVID HOWELL Admission Status: ER Accout number: [id number] Admission Date: 07-20-2018 : 1940 Admission Diagnosis: Attending: GLORIA ARRINGTON Current LOS: 3 Anticipated DC Date: Planned Disposition: Home Primary Insurance: CARE IMPROVEMENT PLUS [facility] Discharge Planning Comments: CM met with patient to complete initial dc planning assessment. CM educated patient on the CM role and verbal consent given by patient to complete assessment. Patient lives at home with his where he is independent with is care. At discharge patient plans to return home and feels this is a safe discharge. CM discussed availability of home health, rehab services, and medical equipment. We talked about home health and iv abx as a possibility when he is discharged home. FALGUNI with [facility] and he would like to use the infusion company that is the cheapest out of pocket cost for him. We will wait to see if he needs this at dc. FALGUNI signed and placed in chart. Patient denied known discharge needs at this time. CM will continue to follow and will assist as needed with dc plans/needs. Ladle Patcher: Irina Pelayo DCPIA - Discharge Planning Initial Assessment Updated by [id number]: Irina Pelayo on 07/23/18 12:51 pm * Is the patient Alert and Oriented? Yes * How many steps to enter\exit or inside your home? * PCP [facility] * [facility] [address] * Preadmission Environment Home with Family * ADLs Independent * Equipment None * List name and contact numbers for known caregivers / representatives who currently or will assist patient after discharge: jovan () [phone] * Verbal permission to speak to the caregivers and representatives has been obtained from the patient. N/A * Community resources currently utilized None * Additional services required to return to the preadmission environment? Yes * Can the patient safely return to the preadmission environment? Yes * Has this patient been hospitalized within the prior 30 days at any hospital? No Coverage Notice Reviewer: [id number] - Irina Pelayo Notice Issued Date-Time: 07/23/2018 12:15 Notice Type: Patient Choice Letter Notice Delivered To: Patient Relationship to Patient: Puppet Developer Name: Delivery Method: HAND - Hand Delivered Radha Days: Prior Verbal Notification: Recipient Understood Notice: Yes Recipient Signature: Yes Med Rec Note Co-signed by Attending: Coverage Notice Comment: Reviewer: [id number] - Hi Gonzales Notice Issued Date-Time: 08/05/2018 13:50 Notice Type: IM Discharge Notice Notice Delivered To: Patient Relationship to Patient: Puppet Developer Name: Delivery Method: HAND - Hand Delivered Radha Days: Prior Verbal Notification: Recipient Understood Notice: Yes Recipient Signature: Yes Med Rec Note Co-signed by Attending: Coverage Notice Comment: Last DP export: 08/05/18 7:25 a Patient Name: DAVID HOWELL Page 48589 at 1631 All edits/amendments must be made on the electronic document DICTATION DATE: 08/05/18 1630 VICE PRESIDENT OF PRODUCT MARKETING: SENDY 08/05/18 1630 RPT#: [id number] DC DATE: STATUS: ADM IN [facility] [address] [place] [address] END OF REPORT
[2018-08-05 17:08] VITALS: BP 124/88
--- NOTE | 2018-08-05 17:40 | NUR ---
1735-INFORMED PER MANAGER OF ADMINISTRATION THAT PATIENT HAS HER PACEMAKER ON OWN AT [facility], HR 60. PATIENT HAS BEEN IN CAF ALL DAY. HEART MONITOR SHOWS ASYSTOLE THEN SLOWING COMING UP TO 18. VSS WITH B/P 150/65, HR 60. PAGE INTO DR. SINCLAIR. MANAGER OF ADMINISTRATION IS HAVING MONITOR RE-LEARN. 1746-DR SINCLAIR TO CALL BACK WITH NO NEW ORDERS.
[2018-08-05 18:38] VITALS: BP 120/78
[2018-08-05 20:00] VITALS: BP 114/57
[2018-08-06] VITALS: BP 143/77
[2018-08-06 04:00] VITALS: BP 122/66
[2018-08-06 06:10] LABS: BASOPHILS 0.3 % (0-2); EOSINOPHILS 3.5 % (0-7); HEMATOCRIT 27.3 % (42.0-54.0); HEMOGLOBIN 9.3 g/dL (13.5-17.5); IMMATURE GRANULOCYTES 0.3 % (0-5); LYMPHOCYTES 20.7 % (15-50); MCHC 34.1 g/dL (31.0-37.0); MCV 93.8 fL (80.0-100.0); MEAN PLATELET VOLUME 9.2 fL (7.4-10.4); MONOCYTES 11.5 % (2-11); NEUTROPHILS 63.7 % (40-80); PLATELET COUNT 339 10x3/uL (130-400); RBC 2.91 10x6/uL (4.20-6.10); RDW 14.2 % (11.5-14.5); WBC 7.3 10x3/uL (4.8-10.8)
[2018-08-06 06:32] LABS: ANION GAP 11.9 mmol/L (8-16); CALCIUM 8.9 mg/dL (8.5-10.1); CARBON DIOXIDE 25.7 mmol/L (21.0-32.0); CREATININE - SERUM 1.3 mg/dL (0.6-1.3); MAGNESIUM - SERUM 1.6 mg/dL (1.8-2.4); POTASSIUM - SERUM 3.6 mmol/L (3.5-5.1)
--- NOTE | 2018-08-06 07:31 | NUR ---
ROUNDING DONE WITH PATIENT STATING HE WANTS TO GO HOME TODAY. ON ROOM AIR. LEFT UPPER ARM PICC SEEN WITH NS INFUSING AT 50 CC/HR, ORANGE SWAB CAPS IN USE. ON EP, K+ IS 3.6, MAG IS 1.6. COVERED WITH ORAL MAG PER PROTOCOL. DRESSING SEEN TO LEFT FOOT.
[2018-08-06 08:19] VITALS: BP 127/70
--- NOTE | 2018-08-06 11:37 | MORECARE ---
CASE MANAGEMENT DISCHARGE SUMMARY PATIENT: DAVID HOWELL UNIT: [id number] ADM DATE: 07/20/18 AGE: 78 : 40 SEX: M ROOM/BED: D.2114 AUTHOR: GERALDINE CASTRO PHYSICIAN: REFERRING PHYSICIAN: GLORIA ARRINGTON MD DATE OF SERVICE: 08/06/18 Discharge Plan Patient Name: DAVID HOWELL Facility: [facility]:[place] : 1940 Planned Disposition: Home Anticipated Discharge Date: 08/06/18 Discharge Date: Expected LOS: 17 Initial Reviewer: [id number] Initial Review Date: 07/20/2018 Generated: 08/06/18 12:37 pm Comments DCP- Discharge Planning Updated by [id number]: Hi Gonzales on 08/05/18 3:[address] Patient Name: DAVID HOWELL Encounter No: [id number] : 1940 Primary Insurance: CARE IMPROVEMENT PLUS [facility] Anticipated DC Date: 08-06-2018 Planned Disposition: Home WITH HOME HEALTH External Planned Provider: [facility], ANA HOME INFUSION DCP follow-up note: CM RECEIVED CALL FROM DINORAH HEIN [facility], , INFORMED HER THAT PT WILL NOT DISCHARGE HOME TODAY, MAY DISCHARGE TOMORROW. DINORAH HEIN WILL CALL AND INFORM [facility] HOME. CM SPOKE TO PT IN ROOM, PT REPORTS AGREEMENT WITH DISCHARGE HOME TOMORROW, REPORTS HIS IS A NURSE AND CAN DO WOUND CARE AND INFUSION AT HOME. PT DENIES FURTHER NEEDS. IMPORTANT MESSAGE FROM MEDICARE PROVIDED AND EXPLAINED. FOR DISCHARGE, NOTIFY DINORAH HEIN OF [place] AT [phone], FAX DISCHARGE INFORMATION TO [place] AT [phone]. NOTIFY [facility] HOME, , FAX DISCHARGE INFORMATION TO [facility], . HOME INFUSION TO BEGIN ON 08-06 AT 1730 HOURS. Hi Gonzales, CASE MANAGEMENT DCP- Discharge Planning Updated by [id number]: Keyana Bunch on 08/02/18 6:[address] 1500 [place] NURSE, DINORAH HEIN , ON SITE TO TEACH THE PATIENT'S . AWAITED 'S ARRIVAL. 1630 DR QUINTANA, PODIATRY, VISITED . DRESSING CHANGED AND WOUND ASSESSED. 1644 PRIMARY NURSE ADVISED DISCHARGE IS CANCELLED FOR TODAY. PATIENT WILL BE GOING TO SURGERY TOMORROW W/ DR QUINTANA. [facility]NA INFUSION, DINORAH HEIN, AWARE. ALL NECESSARY INFORMATION HAD BEEN PROVIDED FOR START OF CARE. SHE HAD PATIENT SUPPLIES. TC TO [facility]. ALL INFORMATION HAD BEEN FAXED AND VISIT WAS SCHEDULED FOR SUNDAY. CM WILL NEED TO NOTIFY [facility] WHEN PATIENT IS DISCHARGED DCP- Discharge Planning Updated by [id number]: Keyana Bunch on 08/02/18 9:[address] CM RECEIVED A TELEPHONE CALL FROM BRIDGETT WITH [facility]. THE CARE INPROVEMENT CONTRACT HAS NOT BEEN RENEWED W/ SHYANNE AT THIS TIME. [employer] CANNOT ASSUME CARE. TC TO [facility]. LEFT VOICE MAIL MESSAGE W/ SAMANTA, THE LIAISON. SAMANTA VISITED ON SITE. [facility] IS NOT CONTRACTED WITH [facility]. [facility] IS NOT ACCEPTING NEW REFERRALS DUE TO TRAINING FOR COMPUTER UPDATE. CM WENT TO UPDATE THE PATIENT. HE WAS SLEEPING SOUNDLY. WILL REVISIT. CM SPOKE W/ THE PRIMARY NURSE, RAJ. 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 CM WILL F/U. AWAIT AUTH FROM INSURANCE FOR MEDICATION. DCP- Discharge Planning Updated by [id number]: Keyana Bunch on 08/01/18 3:[address] PLAN FOR POSSIBLE DISCHARGE HOME W/ IV ANTIBIOTIC THERAPY 08/02/18. REFERRAL SENT TO [place] FOR PRICING. PATIENT WANTS THE MOST REASONABLE PROVIDER [employer]. HE HAD SIGNED FOR [facility] HOME HEALTH PROVIDER. TC TO [place]. SPOKE WITH DINORAH HEIN. FAXED MD ORDER, ID NOTE AND HISTORY AND PHYSICAL. TC TO [facility] REGARDING REFERRAL. SPOKE W/ BRIDGETT. THE SCHEDULE WILL ALLOW FOR A SUNDAY ADMIT 08/04. SHE WILL ATTEMPT TO REARRANGE THE SCHEDULE IF POSSIBLE. CM FAXED REFERRAL INFORMATION. [facility] IS SCHEDULING INTO NEXT WEEK 08/06. [facility] IS SCHEDULING INTO NEXT WEEK 08/05. PATIENT HAS CARE IMPROVEMENT PLUS INSURANCE WHICH WILL REQUIRE A PREAUTH. DCP- Discharge Planning Updated by [id number]: Irina Pelayo on 07/23/18 11:[address] Patient Name: DAVID HOWELL Admission Status: ER Accout number: [id number] Admission Date: 07-20-2018 : 1940 Admission Diagnosis: Attending: GLORIA ARRINGTON Current LOS: 3 Anticipated DC Date: Planned Disposition: Home Primary Insurance: CARE IMPROVEMENT PLUS [facility] Discharge Planning Comments: CM met with patient to complete initial dc planning assessment. CM educated patient on the CM role and verbal consent given by patient to complete assessment. Patient lives at home with his where he is independent with is care. At discharge patient plans to return home and feels this is a safe discharge. CM discussed availability of home health, rehab services, and medical equipment. We talked about home health and iv abx as a possibility when he is discharged home. FALGUNI with [facility] and he would like to use the infusion company that is the cheapest out of pocket cost for him. We will wait to see if he needs this at pa. FALGUNI signed and placed in chart. Patient denied known discharge needs at this time. CM will continue to follow and will assist as needed with dc plans/needs. Voucher Examiner: Irina Pelayo DCPIA - Discharge Planning Initial Assessment Updated by [email or web address]: Irina Pelayo on 07/23/18 12:51 pm * Is the patient Alert and Oriented? Yes * How many steps to enter\exit or inside your home? * PCP [facility] * [facility] [address] * Preadmission Environment Home with Family * ADLs Independent * Equipment None * List name and contact numbers for known caregivers / representatives who currently or will assist patient after discharge: jovan () [phone] * Verbal permission to speak to the caregivers and representatives has been obtained from the patient. N/A * Community resources currently utilized None * Additional services required to return to the preadmission environment? Yes * Can the patient safely return to the preadmission environment? Yes * Has this patient been hospitalized within the prior 30 days at any hospital? No External Providers External Provider: [facility] Next Contact Date: 08/06/2018 Service Request Date: Service Type: Resolution: Reviewer: Comments: Coverage Notice Reviewer: [id number] - Irina Pelayo Notice Issued Date-Time: 07/23/2018 12:15 Notice Type: Patient Choice Letter Notice Delivered To: Patient Relationship to Patient: Fire Production Operator Name: Delivery Method: HAND - Hand Delivered Radha Days: Prior Verbal Notification: Recipient Understood Notice: Yes Recipient Signature: Yes Med Rec Note Co-signed by Attending: Coverage Notice Comment: Reviewer: [id number] - Hi Gonzales Notice Issued Date-Time: 08/05/2018 13:50 Notice Type: IM Discharge Notice Notice Delivered To: Patient Relationship to Patient: Fire Production Operator Name: Delivery Method: HAND - Hand Delivered Radha Days: Prior Verbal Notification: Recipient Understood Notice: Yes Recipient Signature: Yes Med Rec Note Co-signed by Attending: Coverage Notice Comment: Last DP export: 08/05/18 3:30 p Patient Name: DAVID HOWELL Page [id number] at 1137 All edits/amendments must be made on the electronic document DICTATION DATE: 08/06/181136 ADVANCED [employer]UFA[employer]URING VICE PRESIDENT: SENDY 08/06/181136 RPT#: [id number] DC DATE: STATUS: ADM IN [facility] [address] [place] [address] END OF REPORT
--- NOTE | 2018-08-06 11:45 | MORECARE ---
CASE MANAGEMENT DISCHARGE SUMMARY PATIENT: DAVID HOWELL UNIT: [id number] ADM DATE: 07/20/18 AGE: 78 : 40 SEX: M ROOM/BED: D.4403 AUTHOR: MATTHEW,GERALDINE PHYSICIAN: REFERRING PHYSICIAN: GLORIA ARRINGTON MD DATE OF SERVICE: 08/06/18 Discharge Plan Patient Name: DAVID HOWELL Facility: [facility]:[place] : 1940 Planned Disposition: Home Anticipated Discharge Date: 08/06/18 Discharge Date: Expected LOS: 17 Initial Reviewer: [id number] Initial Review Date: 07/20/2018 Generated: 08/06/18 12:45 pm Comments DCP- Discharge Planning Updated by [id number]: Hi Gonzales on 08/05/18 3:[address] Patient Name: DAVID HOWELL Encounter No: [id number] : 1940 Primary Insurance: CARE IMPROVEMENT PLUS [facility] Anticipated DC Date: 08-06-2018 Planned Disposition: Home WITH HOME HEALTH External Planned Provider: [facility], ANA HOME INFUSION DCP follow-up note: CM RECEIVED CALL FROM DINORAH HEIN [facility], , INFORMED HER THAT PT WILL NOT DISCHARGE HOME TODAY, MAY DISCHARGE TOMORROW. DINORAH HEIN WILL CALL AND INFORM [facility]. CM SPOKE TO PT IN ROOM, PT REPORTS AGREEMENT WITH DISCHARGE HOME TOMORROW, REPORTS HIS IS A NURSE AND CAN DO WOUND CARE AND INFUSION AT HOME. PT DENIES FURTHER NEEDS. IMPORTANT MESSAGE FROM MEDICARE PROVIDED AND EXPLAINED. FOR DISCHARGE, NOTIFY DINORAH HEIN OF [place] AT [phone], FAX DISCHARGE INFORMATION TO [place] AT [phone]. NOTIFY [facility], , FAX DISCHARGE INFORMATION TO [facility] AT HOME, . HOME INFUSION TO BEGIN ON 08-06 AT 1730 HOURS. Hi Gonzales, CASE MANAGEMENT DCP- Discharge Planning Updated by [id number]: Keyana Bunch on 08/02/18 6:[address] [place] NURSE, DINORAH HEIN , ON SITE TO TEACH THE PATIENT'S . AWAITED 'S ARRIVAL. 1630 DR QUINTANA, PODIATRY, VISITED . DRESSING CHANGED AND WOUND ASSESSED. 1644 PRIMARY NURSE ADVISED DISCHARGE IS CANCELLED FOR TODAY. PATIENT WILL BE GOING TO SURGERY TOMORROW W/ DR QUINTANA. [facility] INFUSION, DINORAH HEIN, AWARE. ALL NECESSARY INFORMATION HAD BEEN PROVIDED FOR START OF CARE. SHE HAD PATIENT SUPPLIES. TC TO COUNT INCLUDES THE [facility]. ALL INFORMATION HAD BEEN FAXED AND VISIT WAS SCHEDULED FOR SUNDAY. CM WILL NEED TO NOTIFY COUNT INCLUDES THE [facility] WHEN PATIENT IS DISCHARGED DCP- Discharge Planning Updated by [id number]: Keyana Bunch on 08/02/18 9:[address] CM RECEIVED A TELEPHONE CALL FROM BRIDGETT WITH [facility]. THE CARE INPROVEMENT CONTRACT HAS NOT BEEN RENEWED W/ SHYANNE AT THIS TIME. [employer] CANNOT ASSUME CARE. TC TO [facility]. LEFT VOICE MAIL MESSAGE W/ SAMANTA, THE LIAISON. SAMANTA VISITED ON SITE. CARE [facility] IS NOT CONTRACTED WITH [facility]. [facility] IS NOT ACCEPTING NEW REFERRALS DUE TO TRAINING FOR COMPUTER UPDATE. CM WENT TO UPDATE THE PATIENT. HE WAS SLEEPING SOUNDLY. WILL REVISIT. CM SPOKE W/ THE PRIMARY NURSE, RAJ. 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 CM WILL F/U. AWAIT AUTH FROM INSURANCE FOR MEDICATION. DCP- Discharge Planning Updated by [id number]: Keyana Bunch on 08/01/18 3:[address] PLAN FOR POSSIBLE DISCHARGE HOME W/ IV ANTIBIOTIC THERAPY 08/02/18. REFERRAL SENT TO [place] FOR PRICING. PATIENT WANTS THE MOST REASONABLE PROVIDER [employer]. HE HAD SIGNED FOR [facility] HOME HEALTH PROVIDER. TC TO [place]. SPOKE WITH DINORAH HEIN. FAXED MD ORDER, ID NOTE AND HISTORY AND PHYSICAL. TC TO [facility] REGARDING REFERRAL. SPOKE W/ BRIDGETT. THE SCHEDULE WILL ALLOW FOR A SUNDAY ADMIT 08/04. SHE WILL ATTEMPT TO REARRANGE THE SCHEDULE IF POSSIBLE. CM FAXED REFERRAL INFORMATION. [facility] IS SCHEDULING INTO NEXT WEEK 08/06. [facility] IS SCHEDULING INTO NEXT WEEK 08/05. PATIENT HAS CARE IMPROVEMENT PLUS INSURANCE WHICH WILL REQUIRE A PREAUTH. DCP- Discharge Planning Updated by [id number]: Irina Pelayo on 07/23/18 11:[address] Patient Name: DAVID HOWELL Admission Status: ER Accout number: [id number] Admission Date: 07-20-2018 : 1940 Admission Diagnosis: Attending: GLORIA ARRINGTON Current LOS: 3 Anticipated DC Date: Planned Disposition: Home Primary Insurance: CARE IMPROVEMENT PLUS [facility] Discharge Planning Comments: CM met with patient to complete initial dc planning assessment. CM educated patient on the CM role and verbal consent given by patient to complete assessment. Patient lives at home with his where he is independent with is care. At discharge patient plans to return home and feels this is a safe discharge. CM discussed availability of home health, rehab services, and medical equipment. We talked about home health and iv abx as a possibility when he is discharged home. FALGUNI with [facility] and he would like to use the infusion company that is the cheapest out of pocket cost for him. We will wait to see if he needs this at dc. FALGUNI signed and placed in chart. Patient denied known discharge needs at this time. CM will continue to follow and will assist as needed with dc plans/needs. Weather Forecaster: Irina Pelayo DCPIA - Discharge Planning Initial Assessment Updated by [email or web address]: Irina Pelayo on 07/23/18 12:51 pm * Is the patient Alert and Oriented? Yes * How many steps to enter\exit or inside your home? * PCP [facility] * [facility] [address] * Preadmission Environment Home with Family * ADLs Independent * Equipment None * List name and contact numbers for known caregivers / representatives who currently or will assist patient after discharge: jovan () [phone] * Verbal permission to speak to the caregivers and representatives has been obtained from the patient. N/A * Community resources currently utilized None * Additional services required to return to the preadmission environment? Yes * Can the patient safely return to the preadmission environment? Yes * Has this patient been hospitalized within the prior 30 days at any hospital? No External Providers External Provider: [facility] Next Contact Date: 08/06/2018 Service Request Date: Service Type: Resolution: Reviewer: Comments: Coverage Notice Reviewer: [id number] - Irina Pelayo Notice Issued Date-Time: 07/23/2018 12:15 Notice Type: Patient Choice Letter Notice Delivered To: Patient Relationship to Patient: Manager It Training Name: Delivery Method: HAND - Hand Delivered Radha Days: Prior Verbal Notification: Recipient Understood Notice: Yes Recipient Signature: Yes Med Rec Note Co-signed by Attending: Coverage Notice Comment: Reviewer: [id number] Teodoro Gonzales Notice Issued Date-Time: 08/05/2018 13:50 Notice Type: IM Discharge Notice Notice Delivered To: Patient Relationship to Patient: Manager It Training Name: Delivery Method: HAND - Hand Delivered Radha Days: Prior Verbal Notification: Recipient Understood Notice: Yes Recipient Signature: Yes Med Rec Note Co-signed by Attending: Coverage Notice Comment: Last DP export: 08/06/18 10:37 a Patient Name: DAVID HOWELL Page 34823 at 1145 All edits/amendments must be made on the electronic document DICTATION DATE: 08/06/18 1145 DOOR TECHNICIAN: SENDY 08/06/18 1145 RPT#: [id number] DC DATE: STATUS: ADM IN [facility] [address] [place] [address] END OF REPORT
--- NOTE | 2018-08-06 11:54 | MORECARE ---
CASE MANAGEMENT DISCHARGE SUMMARY PATIENT: DAVID HOWELL UNIT: [id number] ADM DATE: 07/20/18 AGE: 78 : 40 SEX: M ROOM/BED: D.2117 AUTHOR: MATTHEW,DOC PHYSICIAN: REFERRING PHYSICIAN: GLORIA ARRINGTON MD DATE OF SERVICE: 08/06/18 Discharge Plan Patient Name: DAVID HOWELL Facility: [facility]:[place] : 1940 Planned Disposition: Home with Home Health Anticipated Discharge Date: 08/06/18 Discharge Date: Expected LOS: 17 Initial Reviewer: [email or web address] Initial Review Date: 07/20/2018 Generated: 08/06/18 12:54 pm Comments DCP- Discharge Planning Updated by [id number]: Hi Gonzales on 08/05/18 3:[address] Patient Name: DAVID HOWELL Encounter No: [id number] : 1940 Primary Insurance: CARE IMPROVEMENT PLUS [facility] Anticipated DC Date: 08-06-2018 Planned Disposition: Home WITH HOME HEALTH External Planned Provider: [facility] DCP follow-up note: CM RECEIVED CALL FROM DINORAH HEIN OF [facility], , INFORMED HER THAT PT WILL NOT DISCHARGE HOME TODAY, MAY DISCHARGE TOMORROW. DINORAH HEIN WILL CALL AND INFORM [facility]. CM SPOKE TO PT IN ROOM, PT REPORTS AGREEMENT WITH DISCHARGE HOME TOMORROW, REPORTS HIS IS A NURSE AND CAN DO WOUND CARE AND INFUSION AT HOME. PT DENIES FURTHER NEEDS. IMPORTANT MESSAGE FROM MEDICARE PROVIDED AND EXPLAINED. FOR DISCHARGE, NOTIFY [facility]AH HEIN [facility] AT [phone], FAX DISCHARGE INFORMATION TO [facility] AT [phone]. NOTIFY [facility], , FAX DISCHARGE INFORMATION TO [facility], . HOME INFUSION TO BEGIN ON 08-06 AT 1730 HOURS. Hi Gonzales, CASE MANAGEMENT DCP- Discharge Planning Updated by [id number]: Keyana Bunch on 08/02/18 6:[address] 1500 [facility] NURSE, DINORAH HEIN , ON SITE TO TEACH THE PATIENT'S . AWAITED 'S ARRIVAL. 1630 DR QUINTANA, PODIATRY, VISITED . DRESSING CHANGED AND WOUND ASSESSED. 1644 PRIMARY NURSE ADVISED DISCHARGE IS CANCELLED FOR TODAY. PATIENT WILL BE GOING TO SURGERY TOMORROW W/ DR QUINTANA. [facility], DINORAH HEIN, AWARE. ALL NECESSARY INFORMATION HAD BEEN PROVIDED FOR START OF CARE. SHE HAD PATIENT SUPPLIES. TC TO [facility]. ALL INFORMATION HAD BEEN FAXED AND VISIT WAS SCHEDULED FOR SUNDAY. CM WILL NEED TO NOTIFY [facility] WHEN PATIENT IS DISCHARGED DCP- Discharge Planning Updated by [id number]: Keyana Bunch on 08/02/18 9:[address] CM RECEIVED A TELEPHONE CALL FROM BRIDGETT WITH [facility]. THE CARE INPROVEMENT CONTRACT HAS NOT BEEN RENEWED W/ [facility] AT THIS TIME. [facility] CANNOT ASSUME CARE. TC TO [facility]. LEFT VOICE MAIL MESSAGE W/ SAMANTA, THE LIAISON. SAMANTA VISITED ON SITE. [facility] IS NOT CONTRACTED WITH [facility]. [facility] IS NOT ACCEPTING NEW REFERRALS DUE TO TRAINING FOR COMPUTER UPDATE. CM WENT TO UPDATE THE PATIENT. HE WAS SLEEPING SOUNDLY. WILL REVISIT. CM SPOKE W/ THE PRIMARY NURSE, RAJ. 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 CM WILL F/U. AWAIT AUTH FROM INSURANCE FOR MEDICATION. DCP- Discharge Planning Updated by [id number]: Keyana Bunch on 08/01/18 3:[address] PLAN FOR POSSIBLE DISCHARGE HOME W/ IV ANTIBIOTIC THERAPY 08/02/18. REFERRAL SENT TO [facility] FOR PRICING. PATIENT WANTS THE MOST REASONABLE PROVIDER COSTWISE. HE HAD SIGNED FOR [facility] HOME HEALTH PROVIDER. TC TO [facility]. SPOKE WITH DINORAH HEIN. FAXED MD ORDER, ID NOTE AND HISTORY AND PHYSICAL. TC TO [facility] REGARDING REFERRAL. SPOKE W/ BRIDGETT. THE SCHEDULE WILL ALLOW FOR A SUNDAY ADMIT 08/04. SHE WILL ATTEMPT TO REARRANGE THE SCHEDULE IF POSSIBLE. CM FAXED REFERRAL INFORMATION. [facility] IS SCHEDULING INTO NEXT WEEK 08/06. [facility] IS SCHEDULING INTO NEXT WEEK 08/05. PATIENT HAS CARE IMPROVEMENT PLUS INSURANCE WHICH WILL REQUIRE A PREAUTH. DCP- Discharge Planning Updated by [id number]: Irina Pelayo on 07/23/18 11:[address] Patient Name: DAVID LYNDA Admission Status: ER Accout number: [id number] Admission Date: 07-20-2018 : 1940 Admission Diagnosis: Attending: GLORIA ARRINGTON Current LOS: 3 Anticipated DC Date: Planned Disposition: Home Primary Insurance: CARE IMPROVEMENT PLUS [facility] Discharge Planning Comments: CM met with patient to complete initial dc planning assessment. CM educated patient on the CM role and verbal consent given by patient to complete assessment. Patient lives at home with his where he is independent with is care. At discharge patient plans to return home and feels this is a safe discharge. CM discussed availability of home health, rehab services, and medical equipment. We talked about home health and iv abx as a possibility when he is discharged home. FALGUNI with [facility] and he would like to use the infusion company that is the cheapest out of pocket cost for him. We will [place] if [place] this [place]. FALGUNI signed and placed in chart. Patient denied known discharge needs at this time. CM will continue to follow and will assist as needed with dc plans/needs. Hotel Server: Irina Pelayo DCPIA - Discharge Planning Initial Assessment Updated by [email or web address]: Irina Pelayo on 07/23/18 12:51 pm * Is the patient Alert and Oriented? Yes * How many steps to enter\exit or inside your home? * PCP [facility] * [facility] [address] * Preadmission Environment Home with Family * ADLs Independent * Equipment None * List name and contact numbers for known caregivers / representatives who currently or will assist patient after discharge: jovan () [phone] * Verbal permission to speak to the caregivers and representatives has been obtained from the patient. N/A * Community resources currently utilized None * Additional services required to return to the preadmission environment? Yes * Can the patient safely return to the preadmission environment? Yes * Has this patient been hospitalized within the prior 30 days at any hospital? No Coverage Notice Reviewer: [id number] - Irina Pelayo Notice Issued Date-Time: 07/23/2018 12:15 Notice Type: Patient Choice Letter Notice Delivered To: Patient Relationship to Patient: Labeling Specialist Name: Delivery Method: HAND - Hand Delivered Radha Days: Prior Verbal Notification: Recipient Understood Notice: Yes Recipient Signature: Yes Med Rec Note Co-signed by Attending: Coverage Notice Comment: Reviewer: [id number] - Hi Gonzales Notice Issued Date-Time: 08/05/2018 13:50 Notice Type: IM Discharge Notice Notice Delivered To: Patient Relationship to Patient: Labeling Specialist Name: Delivery Method: HAND - Hand Delivered Radha Days: Prior Verbal Notification: Recipient Understood Notice: Yes Recipient Signature: Yes Med Rec Note Co-signed by Attending: Coverage Notice Comment: Last DP export: 08/06/18 10:45 a Patient Name: DAVID HOWELL Page [phone] at 1154 All edits/amendments must be made on the electronic document DICTATION DATE: 08/06/18 1154 BOX ORDER PERSON: SENDY 08/06/18 1154 RPT#: [id number] DC DATE: STATUS: ADM IN [facility] [address] [place] [address] END OF REPORT
--- NOTE | 2018-08-06 12:10 | MORECARE ---
CASE MANAGEMENT DISCHARGE SUMMARY PATIENT: DAVID HOWELL UNIT: [id number] ADM DATE: 07/20/18 AGE: 78 : 40 SEX: M ROOM/BED: D.2117 AUTHOR: MATTHEWDOC PHYSICIAN: REFERRING PHYSICIAN: GLORIA ARRINGTON MD DATE OF SERVICE: 08/06/18 Discharge Plan Patient Name: DAVID HOWELL Facility: [facility]:[place] : 1940 Planned Disposition: Home with Home Health Anticipated Discharge Date: 08/06/18 Discharge Date: Expected LOS: 17 Initial Reviewer: [id number] Initial Review Date: 07/20/2018 Generated: 08/06/18 1:10 pm Comments DCP- Discharge Planning Updated by [id number]: Hi Gonzales on 08/06/18 11:[address] Patient Name: DAVID HOWELL Encounter No: [id number] : 1940 Primary Insurance: CARE IMPROVEMENT PLUS [employer] Anticipated DC Date: 08-06-2018 Planned Disposition: Home with Home Health External Planned Provider: [facility] DCP follow-up note: CM RECEIVED CALL FROM DINORAH HEIN OF [facility], , INFORMED HER THAT PT WILL DISCHARGE HOME TODAY AND CLAIFIED HOME ANTIBIOTIC ORDERS, DINORAH HEIN WILL CALL AND COORDINATE WITH [facility]. CM RECEIVED DISCHARGE ORDER, NOTIFYIEDDINORAH HEIN OF [facility] AT [phone], FAXED DISCHARGE INFORMATION TO [facility] AT [phone]. CM NOTIFIED ELLEN OF [facility], , FAXED DISCHARGE INFORMATION TO [facility], . HOME INFUSION TO BEGIN ON 08-07. JING Clayton DCP- Discharge Planning Updated by [id number]: Hi Gonzales on 08/05/18 3:[address] Patient Name: DAVID HOWELL Encounter No: [id number] : 1940 Primary Insurance: CARE IMPROVEMENT PLUS MCR Anticipated DC Date: 08-06-2018 Planned Disposition: Home WITH HOME HEALTH External Planned Provider: [facility] DCP follow-up note: CM RECEIVED CALL FROM KATH OF [facility], , INFORMED HER THAT PT WILL NOT DISCHARGE HOME TODAY, MAY DISCHARGE TOMORROW. DINORAH HEIN WILL CALL AND INFORM [facility]. CM SPOKE TO PT IN ROOM, PT REPORTS AGREEMENT WITH DISCHARGE HOME TOMORROW, REPORTS HIS IS A NURSE AND CAN DO WOUND CARE AND INFUSION AT HOME. PT DENIES FURTHER NEEDS. IMPORTANT MESSAGE FROM MEDICARE PROVIDED AND EXPLAINED. FOR DISCHARGE, NOTIFY DINORAH HEIN OF [facility] AT [phone], FAX DISCHARGE INFORMATION TO [facility] AT [phone]. NOTIFY [facility], , FAX DISCHARGE INFORMATION TO [facility], . HOME INFUSION TO BEGIN ON 08-06 AT 1730 HOURS. Hi Gonzales, CASE MANAGEMENT DCP- Discharge Planning Updated by [id number]: Keyana Bunch on 08/02/18 6:[address] 1500 [facility] NURSE, KATH , ON SITE TO TEACH THE PATIENT'S . AWAITED 'S ARRIVAL. 1630 DR QUINTANA, PODIATRY, VISITED . DRESSING CHANGED AND WOUND ASSESSED. 1645 PRIMARY NURSE ADVISED DISCHARGE IS CANCELLED FOR TODAY. PATIENT WILL BE GOING TO SURGERY TOMORROW W/ DR QUINTANA. [facility], DINORAH HEIN, AWARE. ALL NECESSARY INFORMATION HAD BEEN PROVIDED FOR START OF CARE. SHE HAD PATIENT SUPPLIES. TC TO PENDING SALE TO [facility]. ALL INFORMATION HAD BEEN FAXED AND VISIT WAS SCHEDULED FOR SUNDAY. CM WILL NEED TO NOTIFY PENDING SALE TO [facility] WHEN PATIENT IS DISCHARGED DCP- Discharge Planning Updated by [id number]: Keyana Bunch on 08/02/18 9:[address] CM RECEIVED A TELEPHONE CALL FROM BRIDGETT WITH [employer]. THE CARE INPROVEMENT CONTRACT HAS NOT BEEN RENEWED W/ [facility] AT THIS TIME. [facility] CANNOT ASSUME CARE. TC TO [facility]. LEFT VOICE MAIL MESSAGE W/ SAMANTA, THE LIAISON. SAMANTA VISITED ON SITE. [facility] IS NOT CONTRACTED WITH [facility]. [facility] IS NOT ACCEPTING NEW REFERRALS DUE TO TRAINING FOR COMPUTER UPDATE. CM WENT TO UPDATE THE PATIENT. HE WAS SLEEPING SOUNDLY. WILL REVISIT. CM SPOKE W/ THE PRIMARY NURSE, RAJ. 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 CM WILL F/U. AWAIT AUTH FROM INSURANCE FOR MEDICATION. DCP- Discharge Planning Updated by [id number]: Keyana Bunch on 08/01/18 3:[address] PLAN FOR POSSIBLE DISCHARGE HOME W/ IV ANTIBIOTIC THERAPY 08/02/18. REFERRAL SENT TO [facility] FOR [facility]. PATIENT WANTS THE MOST REASONABLE PROVIDER [employer]. HE HAD SIGNED FOR [facility] HOME HEALTH PROVIDER. TC TO [facility]. SPOKE WITH DINORAH HEIN. FAXED MD ORDER, ID NOTE AND HISTORY AND PHYSICAL. TC TO [facility] REGARDING REFERRAL. SPOKE W/ BRIDGETT. THE SCHEDULE WILL ALLOW FOR A SUNDAY ADMIT 08/04. SHE WILL ATTEMPT TO REARRANGE THE SCHEDULE IF POSSIBLE. CM FAXED REFERRAL INFORMATION. [facility] IS SCHEDULING INTO NEXT WEEK 08/06. [facility] IS SCHEDULING INTO NEXT WEEK 08/05. PATIENT HAS CARE IMPROVEMENT PLUS INSURANCE WHICH WILL REQUIRE A PREAUTH. DCP- Discharge Planning Updated by [id number]: Irina Pelayo on 07/23/18 11:[address] Patient Name: DAVID HOWELL Admission Status: ER Accout number: [id number] Admission Date: 07-20-2018 : 1940 Admission Diagnosis: Attending: GLORIA ARRINGTON Current LOS: 3 Anticipated DC Date: Planned Disposition: Home Primary Insurance: CARE IMPROVEMENT PLUS [facility] Discharge Planning Comments: CM met with patient to complete initial dc planning assessment. CM educated patient on the CM role and verbal consent given by patient to complete assessment. Patient lives at home with his where he is independent with is care. At discharge patient plans to return home and feels this is a safe discharge. CM discussed availability of home health, rehab services, and medical equipment. We talked about home health and iv abx as a possibility when he is discharged home. FALGUNI with [facility] and he would like to use the infusion company that is the cheapest out of pocket cost for him. We will wait to see if he needs this [place]. FALGUNI signed and placed in chart. Patient denied known discharge needs at this time. CM will continue to follow and will assist as needed with dc plans/needs. [employer] Sales Representative: Irina Pelayo DCPIA - Discharge Planning Initial Assessment Updated by [id number]: Irina Pelayo on 07/23/18 12:51 pm * Is the patient Alert and Oriented? Yes * How many steps to enter\exit or inside your home? * PCP [facility] * [facility] [address] * Preadmission Environment Home with Family * ADLs Independent * Equipment None * List name and contact numbers for known caregivers / representatives who currently or will assist patient after discharge: jovan () [phone] * Verbal permission to speak to the caregivers and representatives has been obtained from the patient. N/A * Community resources currently utilized None * Additional services required to return to the preadmission environment? Yes * Can the patient safely return to the preadmission environment? Yes * Has this patient been hospitalized within the prior 30 days at any hospital? No Coverage Notice Reviewer: [id number] Teodoro Pelayo Notice Issued Date-Time: 07/23/2018 12:15 Notice Type: Patient Choice Letter Notice Delivered To: Patient Relationship to Patient: Confidential Secretary Name: Delivery Method: HAND - Hand Delivered Radha Days: Prior Verbal Notification: Recipient Understood Notice: Yes Recipient Signature: Yes Med Rec Note Co-signed by Attending: Coverage Notice Comment: Reviewer: [id number] - Hi Gonzales Notice Issued Date-Time: 08/05/2018 13:50 Notice Type: IM Discharge Notice Notice Delivered To: Patient Relationship to Patient: Confidential Secretary Name: Delivery Method: HAND - Hand Delivered Radha Days: Prior Verbal Notification: Recipient Understood Notice: Yes Recipient Signature: Yes Med Rec Note Co-signed by Attending: Coverage Notice Comment: Last DP export: 08/06/18 10:54 a Patient Name: DAVID HOWELL Page [phone] at 1210 All edits/amendments must be made on the electronic document DICTATION DATE: 08/06/18 1210 MANAGER STERILE PROCESSING: SENDY 08/06/18 1210 RPT#: [id number] DC DATE: STATUS: ADM IN [facility] [address] [place] [address] END OF REPORT
[2018-08-06 12:28] VITALS: BP 132/78
--- NOTE | 2018-08-06 14:45 | NUR ---
BILATERAL LUMEN'S OF PICC FLUSHED WELL WITH 10 CC NS TO EACH AND ORANGE CAPS PLACED. VERBAL AND WRITTEN DISCHARGE INSTRUCTIONS GIVEN TO PATIENT AND . DISCHARGED HOME PER WHEELCHAIR.
== END 2018-08-06 14:51 | disposition home health service (06) | DRG 853 ==
LOC: D.ER 19:11 → D.MS 20:59 → D.M2 20:59 → D.ICU 07-26 11:23 → D.M2 07-27 14:01
PROVIDERS: Family Medicine; Internal Medicine Nephrology; Podiatrist Foot & Ankle Surgery; ADMIT Family Medicine; ATTEND Family Medicine
PROC: 0QBR3ZZ Excision of Left Toe Phalanx, Percutaneous Approach (ICD-10-PCS; principal; 2018-07-21)
PROC: 0Y6N0ZF Detachment at Left Foot, Partial 5th Ray, Open Approach (ICD-10-PCS; 2018-07-23)
PROC: 0HBNXZZ Excision of Left Foot Skin, External Approach (ICD-10-PCS; 2018-07-23)
PROC: 0QBP0ZZ Excision of Left Metatarsal, Open Approach (ICD-10-PCS; 2018-07-30)
PROC: 0JQR0ZZ Repair Left Foot Subcutaneous Tissue and Fascia, Open Approach (ICD-10-PCS; 2018-07-30)
PROC: 0DBK8ZZ Excision of Ascending Colon, Via Natural or Artificial Opening Endoscopic (ICD-10-PCS; 2018-07-31)
PROC: 02HV33Z Insertion of Infusion Device into Superior Vena Cava, Percutaneous Approach (ICD-10-PCS; 2018-08-01)
PROC: B548ZZA Ultrasonography of Superior Vena Cava, Guidance (ICD-10-PCS; 2018-08-01)
PROC: 0H9NXZZ Drainage of Left Foot Skin, External Approach (ICD-10-PCS; 2018-08-03)
DX: A41.9 Sepsis, unspecified organism (principal); A48.0 Gas gangrene; K72.00 Acute and subacute hepatic failure without coma; L03.116 Cellulitis of left lower limb; M86.8X7 Other osteomyelitis, ankle and foot; E11.52 Type 2 diabetes mellitus with diabetic peripheral angiopathy with gangrene; N17.9 Acute kidney failure, unspecified; E87.1 Hypo-osmolality and hyponatremia; E11.65 Type 2 diabetes mellitus with hyperglycemia; E11.22 Type 2 diabetes mellitus with diabetic chronic kidney disease; N18.3 Chronic kidney disease, stage 3 (moderate); E11.40 Type 2 diabetes mellitus with diabetic neuropathy, unspecified; I25.10 Atherosclerotic heart disease of native coronary artery without angina pectoris; Z89.431 Acquired absence of right foot; I48.0 Paroxysmal atrial fibrillation; D64.9 Anemia, unspecified; E61.1 Iron deficiency; K63.5 Polyp of colon

== ENCOUNTER 2018-08-14 14:52 | Inpatient (IN) | payer MEDICARE ==
[~2018-08-14] VITALS: Ht 182.9 cm; Wt 83.9 kg
[~2018-08-14 14:52] MED LIST changes: +FLORAJEN3 CAPS460 MG PO; +INVANZ 1 GM/NS 11 G1 IV; +MULTI-DAY VITAM1 TAB PO; +PROTONIX40 MG PO; +TOUJEO SOL300 UNIT/1 SC; +XARELTO15 MG PO
[2018-08-14 15:30] VITALS: BP 131/72
--- NOTE | 2018-08-14 15:40 | NUR ---
PT GIVEN URINAL AND ASKED TO PROVIDE URINE SAMPLE MALINA FOR ORDERED LABS. PT VOICED UNDERSTANDING. FAMILY MEMBER AT THE BEDSIDE. CALL LIGHT IN REACH, WILL CONTINUE TO MONITOR.
[2018-08-14 15:51] LABS: BASOPHILS 0.4 % (0-2); EOSINOPHILS 1.6 % (0-7); HEMATOCRIT 28.7 % (42.0-54.0); HEMOGLOBIN 9.8 g/dL (13.5-17.5); IMMATURE GRANULOCYTES 0.3 % (0-5); MCH 32.6 pg (26.0-34.0); MCHC 34.1 g/dL (31.0-37.0); MCV 95.3 fL (80.0-100.0); NEUTROPHILS 70.7 % (40-80); PLATELET COUNT 291 10x3/uL (130-400); RBC 3.01 10x6/uL (4.20-6.10); WBC 7.4 10x3/uL (4.8-10.8)
[2018-08-14 16:01] LABS: APTT 40.3 SECONDS (22.8-39.4); INR 1.74 (0.85-1.17); PROTIME 19.7 SECONDS (11.6-15.0)
--- NOTE | 2018-08-14 16:04 | NUR ---
PT'S SIGNIFICANT OTHER THAT ARRIVED WITH HIM WAS INSTRUCTED TO NOT PLACE BLANKETS ON PT D/T REPORTED FEVER AND LOW-GRADE FEVER DURING TRIAGE. FAMILY MEMBER VOICED UNDERSTANDING AND STATED THAT SHE INTENDED TO USE BLANKETS FOR POSITIONING PT FOR COMFORT. NURSE ENTERED PT'S ROOM AT THIS TIME AND OBSERVED PT LYING IN BED WITH BLANKETS COVERING HIS BODY. BLANKETS REMOVED AND FAMILY MEMBER EDUCATED AGAIN THAT PT CANNOT HAVE BLANKETS WITH FEVER PRESENT. SHEET TO COVER PT PLACED FOR COMFORT. PT'S TEMP CURRENTLY 99.3 ORALLY, WILL CONTINUE TO MONITOR.
[2018-08-14 16:07] LABS: CALC OSMOLALITY 259 mosm/kg (275-300); CARBON DIOXIDE 26.2 mmol/L (21.0-32.0); CHLORIDE - SERUM 90 mmol/L (98-107); CREATININE - SERUM 1.7 mg/dL (0.6-1.3); GLUCOSE 225 mg/dL (74-106); POTASSIUM - SERUM 4.7 mmol/L (3.5-5.1); SODIUM 124 mmol/L (136-145); UREA NITROGEN 21 mg/dL (7-18); eGFR NON AFRICAN AMERICAN 42 mL/min (90-120)
[2018-08-14 16:08] LABS: ALBUMIN 2.5 g/dL (3.4-5.0); ALKALINE PHOSPHATASE 135 U/L (46-116); ALT (SGPT) 31 U/L (10-68); BILIRUBIN - TOTAL 0.44 mg/dL (0.2-1.3); CALCIUM 9.3 mg/dL (8.5-10.1); PROTEIN - SERUM 8.3 g/dL (6.4-8.2)
[2018-08-14 16:27] LABS: CKMB 0.1 U/L (0.0-3.6); CREATINE KINASE 50 UL (21-232)
[2018-08-14 16:30] VITALS: BP 157/74
[2018-08-14 16:30] LABS: TROPONIN-I < 0.017 ng/mL (0.000-0.060)
--- NOTE | 2018-08-14 16:50 | NUR ---
PT AAO X3, NOTED TO BE CONFUSED ABOUT SITUTATION AT TIMES. WILL REORIENT PT NEEDED.
[2018-08-14 17:00] VITALS: BP 161/94
[2018-08-14 17:47] LABS: APPEARANCE CLEAR (CLEAR); BILIRUBIN NEGATIVE (NEGATIVE); COLOR YELLOW (YELLOW); GLUCOSE 1000 mg/dL (NEGATIVE); KETONE NEGATIVE (NEGATIVE); NITRITE NEGATIVE (NEGATIVE); PROTEIN NEGATIVE (NEGATIVE); UROBILINOGEN NORMAL (NORMAL)
[2018-08-14] MEDS ORDERED: NEURONTIN 300300 MG PO (18:33)
[2018-08-14] MEDS ORDERED: ULTRAM50 MG PO (18:33)
[2018-08-14 18:34] LABS: % SATURATION 15 % (15-55); IRON 28 ug/dl (35-150); TOTAL IRON BIND CAPACITY 177 ug/dl (260-445); UNSAT IRON BIND CAPACITY 149 ug/dl (150-375)
--- NOTE | 2018-08-14 20:13 | NUR ---
PT ALERT X 4. BREATH SOUNDS CLEAR BILAT. IV TO RIGHT AC, PATENT, DRESSING CDI. PRE-ADMISSION PICC LINE TO LEFT UPPER ARM, DRESSING CDI. NO TOES ON RIGHT FOOT. DRESSING TO LEFT FOOT CDI. PT REPORTING NO PAIN AT THIS TIME. BED LOW, CALL LIGHT IN REACH. NO OTHER NEEDS AT THIS TIME.
[2018-08-14 21:50] VITALS: BP 143/74
[2018-08-14 21:51] VITALS: BMI 25.1
[2018-08-15] VITALS (7 sets, daily range): BP systolic 96–134; BP diastolic 46–64; Ht 182.9 cm; Wt 83.9 kg
[2018-08-15 06:44] LABS: BASOPHILS 0.5 % (0-2); HEMATOCRIT 25.3 % (42.0-54.0); HEMOGLOBIN 8.5 g/dL (13.5-17.5); IMMATURE GRANULOCYTES 0.3 % (0-5); LYMPHOCYTES 26.9 % (15-50); MCHC 33.6 g/dL (31.0-37.0); MCV 95.1 fL (80.0-100.0); MEAN PLATELET VOLUME 9.3 fL (7.4-10.4); MONOCYTES 15.9 % (2-11); NEUTROPHILS 49.4 % (40-80); PLATELET COUNT 288 10x3/uL (130-400); RBC 2.66 10x6/uL (4.20-6.10); RDW 14.1 % (11.5-14.5)
[2018-08-15 07:08] LABS: ALBUMIN 1.9 g/dL (3.4-5.0); ANION GAP 10.8 mmol/L (8-16); BILIRUBIN - TOTAL 0.28 mg/dL (0.2-1.3); CALCIUM 8.4 mg/dL (8.5-10.1); CARBON DIOXIDE 27.2 mmol/L (21.0-32.0); CREATININE - SERUM 1.5 mg/dL (0.6-1.3); MAGNESIUM - SERUM 1.4 mg/dL (1.8-2.4); PROTEIN - SERUM 6.9 g/dL (6.4-8.2)
[2018-08-15 18:41] LABS: POTASSIUM - URINE 19.3 MMOL/L (12.0-62.0)
--- NOTE | 2018-08-15 19:00 | NUR ---
REPORT RECEIVED AND CARE OF PT ASSUMED. PT LYING IN LOW BERRIOS'S POSITION WATCHING TV. IV IN RIGHT UPPER ARM PATENT WITH NS INFUSING AT 125 ML / HR. LEFT PICC LINE SALINE LOCKED. DRESSINGS ON BLE CLEAN AND DRY. WILL MONITOR FOR NEEDS.
--- NOTE | 2018-08-15 19:45 | NUR ---
MADE PT LARGE CUP OF HOT TEA.
--- NOTE | 2018-08-15 20:28 | NUR ---
HS MEDICATIONS GIVEN. FSBS 222 THIS CHECK REQUIRING COVERAGE WITH 4 UNITS OF INSULIN PER SLIDING SCALE.
--- NOTE | 2018-08-15 20:40 | NUR ---
ANNALISE KNOX GIVEN: FARHAD CRACKERS, PEANUT BUTTER, AND MILK PER DIET ORDER.
[2018-08-16 01:33] VITALS: BP 134/71
[2018-08-16 04:29] LABS: BASOPHILS 0.4 % (0-2); EOSINOPHILS 8.1 % (0-7); HEMATOCRIT 24.7 % (42.0-54.0); HEMOGLOBIN 8.1 g/dL (13.5-17.5); IMMATURE GRANULOCYTES 0.4 % (0-5); MCH 31.5 pg (26.0-34.0); MCHC 32.8 g/dL (31.0-37.0); MCV 96.1 fL (80.0-100.0); MEAN PLATELET VOLUME 8.9 fL (7.4-10.4); MONOCYTES 11.8 % (2-11); NEUTROPHILS 58.3 % (40-80); PLATELET COUNT 255 10x3/uL (130-400); RBC 2.57 10x6/uL (4.20-6.10); RDW 14.2 % (11.5-14.5); WBC 6.8 10x3/uL (4.8-10.8)
[2018-08-16 04:46] LABS: ANION GAP 13.7 mmol/L (8-16); BILIRUBIN - TOTAL 0.23 mg/dL (0.2-1.3); CALCIUM 8.1 mg/dL (8.5-10.1); CARBON DIOXIDE 25.7 mmol/L (21.0-32.0); CREATININE - SERUM 1.4 mg/dL (0.6-1.3); MAGNESIUM - SERUM 1.4 mg/dL (1.8-2.4); POTASSIUM - SERUM 4.4 mmol/L (3.5-5.1); PROTEIN - SERUM 6.3 g/dL (6.4-8.2)
[2018-08-16 06:04] VITALS: BP 119/62
--- NOTE | 2018-08-16 06:36 | NUR ---
MAG LEVEL 1.4 THIS AM REQUIRING COVERAGE PER THE ELECTROLYTE PROTOCAL. GAVE 400 MG PO AND WILL REPEAT DOSE IN 4 HOURS. WILL PASS ALONG IN REPORT.
[2018-08-16 07:20] LABS: FOLATE (FOLIC ACID) - SERUM 9.1 ng/mL (>3.0)
--- NOTE | 2018-08-16 08:00 | NUR ---
AWAKE AND ALERT. ORIENTED X3. NO C/O AT THIS TIME. LUNGS ARE CLEAR BILATERALLY, NO COUGH NOTED. SKIN IS INTACT WITHOUT REDNESS EXCEPT WOUND TO LEFT FOOT WHICH HAS A DRY INTACT DRESSING IN PLACE. IV TO LEFT UPPER ARM IS PATENT WITHOUT REDNESS AT INSERTION SITE. MIDLINE TO RIGHT UPPER ARM IS PATENT WITHOUT REDNESS AT INSERTION SITE. DENIES NEEDS.
[2018-08-16 08:40] VITALS: BP 125/61
--- NOTE | 2018-08-16 09:00 | NUR ---
ATE ALL OF BREAKFAST AND REQUESTED MORE. WILL MONITOR. TOOK AM MEDS WITHOUT DIFFICULTY. DENIES NEEDS.
[2018-08-16 12:03] VITALS: BP 146/65
--- NOTE | 2018-08-16 12:10 | NUR ---
DR. QUINTANA HERE AND CHANGED DRESSING. FSBS 233. GIVEN 4 UNITS HUMALOG SUBQ PER SS. DENIES NEEDS. UP WITH PT TO BR AT THIS TIME.
--- NOTE | 2018-08-16 12:32 | NUR ---
OT NOTE: PT ABLE TO PERFORM BED MOB WITH SPV; STATIC SITTING WITH GOOD BALANCE; SIT TO STAND WITH USE OF RW AND MOD ASSIST; AMB APPROX 7 FT TO BATHROOM WITH MOD CUES FOR NWB; STAND TO SIT WITH MAX ASSIST DUE TO LOW TOILET. INDEP WITH TOILET HYGIENE; MAX ASSIST WITH SIT TO STAND; CLOTHING MGMT WITH MIN ASSIST; TRANSFER TO CHAIR WITH MOD ASSIST. TERRANCE SUMNER, OTR/L
[2018-08-16 16:39] VITALS: BP 155/72
--- NOTE | 2018-08-16 18:40 | NUR ---
ATE ALL OF SUPPER. FSBS 156 PRIOR TO MEAL. DENIES NEEDS. NO CHANGES NOTED.
--- NOTE | 2018-08-16 19:00 | NUR ---
REPORT RECEIVED AND CARE OF PT ASSUMED. PT LYING IN HIGH BERRIOS'S POSITION WITH EYES CLOSED. LEFT FOOT DANGLING OVER BEDSIDE, PER MD INSTRUCTIONS. IV IN RIGHT UPPER ARM PATENT WITH NS INFUSING AT 125 ML / HR. TELEMETRY IN PLACE AND READING ST AT THIS ASSESSMENT. DRESSING ON LEFT FOOT INTACT. WILL MONITOR FOR NEEDS.
[2018-08-16 20:00] VITALS: BP 126/77
--- NOTE | 2018-08-16 21:09 | NUR ---
HS MEDICATIONS GIVEN. GSVS 135 THIS CHECK REQUIRING NO COVERAGE PER SLIDING SCALE.
--- NOTE | 2018-08-16 21:15 | NUR ---
HS SNACK GIVEN: PEANUT BUTTER, FARHAD CRACKERS, AND MILK.
[2018-08-17] VITALS: BP 129/68
--- NOTE | 2018-08-17 03:41 | NUR ---
CHANGED ALL IV TUBING PER CHANGE SCHEDULE.
[2018-08-17 04:00] VITALS: BP 131/72
[2018-08-17 07:51] LABS: BASOPHILS 0.2 % (0-2); EOSINOPHILS 14.1 % (0-7); HEMATOCRIT 23.7 % (42.0-54.0); IMMATURE GRANULOCYTES 0.3 % (0-5); LYMPHOCYTES 26.9 % (15-50); MCHC 33.8 g/dL (31.0-37.0); MCV 94.8 fL (80.0-100.0); MEAN PLATELET VOLUME 9.1 fL (7.4-10.4); MONOCYTES 13.3 % (2-11); NEUTROPHILS 45.2 % (40-80); PLATELET COUNT 271 10x3/uL (130-400); RDW 14.1 % (11.5-14.5); WBC 6.2 10x3/uL (4.8-10.8)
[2018-08-17 08:19] LABS: ALBUMIN 1.9 g/dL (3.4-5.0); ANION GAP 13.4 mmol/L (8-16); BILIRUBIN - TOTAL 0.27 mg/dL (0.2-1.3); CALCIUM 8.3 mg/dL (8.5-10.1); CARBON DIOXIDE 24.7 mmol/L (21.0-32.0); CREATININE - SERUM 1.4 mg/dL (0.6-1.3); MAGNESIUM - SERUM 1.3 mg/dL (1.8-2.4); POTASSIUM - SERUM 4.1 mmol/L (3.5-5.1); PROTEIN - SERUM 6.5 g/dL (6.4-8.2)
[2018-08-17 08:43] VITALS: BP 98/40
[2018-08-17 12:32] VITALS: BP 171/59
[2018-08-17 16:59] VITALS: BP 135/78
--- NOTE | 2018-08-17 19:00 | NUR ---
REPORT RECEIVED AND CARE OF PT ASSUMED. PT LYING IN HIGH BERRIOS'S POSITION WITH EYES CLOSED. LEFT PICC LINE PATENT WITH NS INFUSING AT 30 ML / HR. DRESSING ON LEFT FOOT INTACT. WILL MONITOR FOR NEEDS.
--- NOTE | 2018-08-17 20:13 | NUR ---
HS MEDICATIONS GIVEN. FSBS 175 THIS CHECK REQUIRING COVERAGE WITH 2 UNITS OF INSULIN PER SLIDING SCALE.
--- NOTE | 2018-08-17 20:15 | NUR ---
GAVE HS SNACK PER DIET ORDERS: FARHAD CRACKERS, PEANUT BUTTER, AND MILK.
[2018-08-17 20:40] VITALS: BP 138/71
[2018-08-18 00:56] VITALS: BP 122/69
[2018-08-18 05:44] VITALS: BP 164/95
[2018-08-18 06:45] LABS: BASOPHILS 0.1 % (0-2); EOSINOPHILS 11.9 % (0-7); IMMATURE GRANULOCYTES 0.3 % (0-5); LYMPHOCYTES 24.4 % (15-50); MCHC 34.4 g/dL (31.0-37.0); MEAN PLATELET VOLUME 8.9 fL (7.4-10.4); MONOCYTES 12.1 % (2-11); NEUTROPHILS 51.2 % (40-80); PLATELET COUNT 267 10x3/uL (130-400); RDW 16.3 % (11.5-14.5); WBC 7.4 10x3/uL (4.8-10.8)
[2018-08-18 06:54] LABS: RBC 3.26 10x6/uL (4.20-6.10)
[2018-08-18 06:55] LABS: HEMATOCRIT 29.4 % (42.0-54.0); HEMOGLOBIN 10.1 g/dL (13.5-17.5); MCV 90.2 fL (80.0-100.0)
--- NOTE | 2018-08-18 07:05 | NUR ---
PT ALERT X 4. BREATH SOUNDS CLEAR BILAT. TELEMETRY IN PLACE. IV TO RIGHT UPPER ARM, SALINE LOCKED. PICC LINE TO LEFT UPPER ARM, PATENT, DRESSING CDI. TOES OF RIGHT FOOT AMPUTATED. 5TH DIGIT OF LEFT FOOT AMPUTATED, WOUND TO FOOT, DRESSING CDI. PT REPORTING NO PAIN AT THIS TIME. BED LOW, CALL LIGHT IN REACH. NO OTHER NEEDS AT THIS TIME.
[2018-08-18 07:11] LABS: ALBUMIN 2.1 g/dL (3.4-5.0); ANION GAP 13.3 mmol/L (8-16); BILIRUBIN - TOTAL 0.42 mg/dL (0.2-1.3); CALCIUM 8.8 mg/dL (8.5-10.1); CARBON DIOXIDE 25.7 mmol/L (21.0-32.0); CREATININE - SERUM 1.4 mg/dL (0.6-1.3); MAGNESIUM - SERUM 1.4 mg/dL (1.8-2.4); PROTEIN - SERUM 7.1 g/dL (6.4-8.2)
[2018-08-18 10:25] VITALS: BP 139/67
[2018-08-18 15:42] VITALS: BP 142/72
--- NOTE | 2018-08-18 19:00 | NUR ---
REPORT RECEIVED AND CARE OF PT ASSUMED. PT LYING IN HIGH BERRIOS'S POSITION VISITING WITH SPOUSE. IV IN RIGHT UPPER ARM SALINE LOCKED. LEFT PICC LINE PATENT WITH NS INFUSING AT 30 ML/HR. TELEMETRY IN PLACE AND READING SR AT THIS ASSESSMENT. DRESSING ON LEFT FOOT NEEDS CHANGED. WILL MONITOR FOR NEEDS.
--- NOTE | 2018-08-18 20:21 | NUR ---
HS MEDICATIONS GIVEN. FSBS 282 THIS CHECK REQUIRING COVERAGE WITH 6 UNITS OF INSULIN PER SLIDING SCALE. WILL CONTINUE TO MONITOR FOR NEEDS.
--- NOTE | 2018-08-18 20:45 | NUR ---
CHANGED DRESSING ON LEFT FOOT PER ORDERS.
--- NOTE | 2018-08-18 21:05 | NUR ---
HS SNACK GIVEN: CHOCOLATE PUDDING X2. WILL CONTINUE TO MONTIOR FOR NEEDS.
[2018-08-18 21:22] VITALS: BP 136/42
[2018-08-19 01:06] VITALS: BP 139/69
[2018-08-19 04:28] LABS: BASOPHILS 0.3 % (0-2); EOSINOPHILS 7.4 % (0-7); HEMATOCRIT 28.9 % (42.0-54.0); HEMOGLOBIN 9.8 g/dL (13.5-17.5); IMMATURE GRANULOCYTES 0.4 % (0-5); LYMPHOCYTES 22.5 % (15-50); MCH 30.8 pg (26.0-34.0); MCHC 33.9 g/dL (31.0-37.0); MCV 90.9 fL (80.0-100.0); MEAN PLATELET VOLUME 8.9 fL (7.4-10.4); MONOCYTES 12.1 % (2-11); NEUTROPHILS 57.3 % (40-80); PLATELET COUNT 266 10x3/uL (130-400); RBC 3.18 10x6/uL (4.20-6.10); RDW 16.1 % (11.5-14.5); WBC 7.3 10x3/uL (4.8-10.8)
[2018-08-19 04:56] VITALS: BP 131/77
[2018-08-19 05:01] LABS: ANION GAP 12.5 mmol/L (8-16); BILIRUBIN - TOTAL 0.36 mg/dL (0.2-1.3); CALCIUM 8.7 mg/dL (8.5-10.1); CARBON DIOXIDE 26.5 mmol/L (21.0-32.0); CREATININE - SERUM 1.3 mg/dL (0.6-1.3); MAGNESIUM - SERUM 1.4 mg/dL (1.8-2.4); PROTEIN - SERUM 6.9 g/dL (6.4-8.2)
[2018-08-19 10:15] VITALS: BP 106/53
[2018-08-19 12:28] VITALS: BP 116/58
--- NOTE | 2018-08-19 12:43 | MORECARE ---
CASE MANAGEMENT DISCHARGE SUMMARY PATIENT: DAVID HOWELL UNIT: [id number] ADM DATE: 08/14/18 AGE: 78 : 40 SEX: M ROOM/BED: D.2204 AUTHOR: GERALDINE CASTRO PHYSICIAN: REFERRING PHYSICIAN: SANG PETERS MD DATE OF SERVICE: 08/19/18 Discharge Plan Patient Name: DAVID HOWELL [facility] [facility] 1940 Planned Disposition: Anticipated Discharge Date: Discharge Date: Expected LOS: Initial Reviewer: [email or web address] Initial Review Date: 08/19/2018 Generated: 08/19/18 1:43 pm Patient Name: DAVID HOWELL Page [phone] at 1243 All edits/amendments must be made on the electronic document DICTATION DATE: 08/19/18 1243 CENTERLESS GRINDING MACHINE ADJUSTER: SENDY 08/19/18 1243 RPT#: [id number] DC DATE: STATUS: ADM IN [facility] [address] [place] [address] END OF REPORT
--- NOTE | 2018-08-19 12:52 | MORECARE ---
CASE MANAGEMENT DISCHARGE SUMMARY PATIENT: DAVID HOWELL UNIT: [id number] ADM DATE: 08/14/18 AGE: 78 : 40 SEX: M ROOM/BED: D.2204 AUTHOR: MATTHEW,DOC PHYSICIAN: REFERRING PHYSICIAN: SANG PETERS MD DATE OF SERVICE: 08/19/18 Discharge Plan Patient Name: DAVID HOWELL Facility: [facility]:[place] : 1940 Planned Disposition: Anticipated Discharge Date: Discharge Date: Expected LOS: Initial Reviewer: [id number] Initial Review Date: 08/19/2018 Generated: 08/19/18 1:52 pm Comments DCP- Discharge Planning Updated by [id number]: Roula Martino on 08/19/18 11:[address] Patient Name: DAVID HOWELL Admission Status: ER Accout number: [id number] Admission Date: 08-14-2018 : 1940 Admission Diagnosis:PNEUMONIA, UNSPECIFIED ORGANISM Attending: SANG PETERS Current LOS: 5 Anticipated DC Date: Planned Disposition: Primary Insurance: [facility] MEDICARE SOLUTIONS Discharge Planning Comments: CM MET WITH PATIENT ABOUT DC PLANNING/NEEDS. STATES WILL BE USING CRUTCHES AND HAS WALKER AND CRUTCHES. PLANS TO RESUME HH BUT DOESN'T REMEMBER HH COMPANY. CM WILL CALL AND ASK HER. HOME ENVIRONMENT SAFE. CM TO FOLLOW AND ASSIST NEEDED. Children'S Service Supervisor: Roula Martino Appended by Roula Martino on 08/19/2018 12:50 CDT: I SPOKE WITH HIS AND SHE STATES HAS [facility] AND [employer] [facility]. WAS CURRENTLY GETTING THOSE SERVICES BEFORE ADMIT TO HOSPITAL. DCPIA - Discharge Planning Initial Assessment Updated by [id number]: Roula Martino on 08/19/18 12:43 pm * Is the patient Alert and Oriented? Yes * PCP FARO * [facility] * Preadmission Environment Home with Family * ADLs Independent * Equipment Crutch Walker * List name and contact numbers for known caregivers / representatives who currently or will assist patient after discharge: CARMELLA ADAME, * Community resources currently utilized Home Health * Additional services required to return to the preadmission environment? No * Can the patient safely return to the preadmission environment? Yes * Has this patient been hospitalized within the prior 30 days at any hospital? Yes External Providers External Provider: [facility] Next Contact Date: Service Request Date: Service Type: Resolution: Reviewer: Comments: Last DP export: 08/19/18 11:43 am Patient Name: DAVID HOWELL Page [phone] at 1252 All edits/amendments must be made on the electronic document DICTATION DATE: 08/19/18 1252 FERRYBOAT OPERATOR: SENDY 08/19/18 1252 RPT#: [id number] DC DATE: STATUS: ADM IN [facility] [address] [place] [address] END OF REPORT
--- NOTE | 2018-08-19 13:48 | NUR ---
NUTRITION F/U PT TOLERATING DIABETIC DIET, 50% INTAKE LUNCH TODAY. WILL PROVIDE ADA DIET, MONITOR PO INTAKE. RD FOLLOWING
--- NOTE | 2018-08-19 16:07 | NUR ---
OT NOTE: PT VERY LETHARGIC THIS AM. MOD ASSIST TO AWAKEN PT. ABLE TO PERFORM BED MOB WITH MIN ASSIST; AMB TO BATHROOM WITH WALKER AND MOD VC FOR NON WT BEARING THROUGH L LE. PT REQUESTING CRUTCHES, BUT FEEL THIS IS MORE OF A FALL RISK FOR PT. PERFORMED TOILET HYGIENE WITHOUT ASSIST; MIN ASSIST TO DOFF AND BEVERLY PULL UPS. AMB SEVERAL FEET FROM TOILET TO CHAIR WITH MIN/MOD ASSIST. SET UP FOR SIMPLE GROOMING AND FEEDING. TERRANCE SUMNER, OTR/L
--- NOTE | 2018-08-19 17:09 | NUR ---
OT NOTE: PT COMPLETED BED MOB TASKS WITH MIN A. PT COMPLETED UE AROM AXS. PT COMPLETED GROOMING TASKS WITH SET UP. THANK YOU, KYARA MASON
[2018-08-19 17:30] VITALS: BP 141/69
[2018-08-19 20:31] VITALS: BP 123/63
[2018-08-20 00:15] VITALS: BP 124/68
[2018-08-20 05:08] VITALS: BP 136/70
[2018-08-20 06:29] LABS: BASOPHILS 0.4 % (0-2); EOSINOPHILS 7.6 % (0-7); HEMATOCRIT 31.2 % (42.0-54.0); HEMOGLOBIN 10.4 g/dL (13.5-17.5); IMMATURE GRANULOCYTES 0.4 % (0-5); MCH 30.8 pg (26.0-34.0); MCHC 33.3 g/dL (31.0-37.0); MCV 92.3 fL (80.0-100.0); MONOCYTES 12.3 % (2-11); NEUTROPHILS 55.3 % (40-80); PLATELET COUNT 297 10x3/uL (130-400); RBC 3.38 10x6/uL (4.20-6.10); RDW 15.9 % (11.5-14.5); WBC 7.2 10x3/uL (4.8-10.8)
[2018-08-20 06:54] LABS: ALBUMIN 2.2 g/dL (3.4-5.0); ANION GAP 12.3 mmol/L (8-16); BILIRUBIN - TOTAL 0.36 mg/dL (0.2-1.3); CALCIUM 9.5 mg/dL (8.5-10.1); CARBON DIOXIDE 27.9 mmol/L (21.0-32.0); CREATININE - SERUM 1.4 mg/dL (0.6-1.3); MAGNESIUM - SERUM 1.5 mg/dL (1.8-2.4); POTASSIUM - SERUM 4.2 mmol/L (3.5-5.1); PROTEIN - SERUM 7.5 g/dL (6.4-8.2)
--- NOTE | 2018-08-20 08:00 | NUR ---
PATIENT IN BED WITH IV INTACT. N O COMPLAINTS OR SIGNS OF DISTRESS. CALL LIGHTW ITHIN REACH.
[2018-08-20 09:13] VITALS: BP 145/79
--- NOTE | 2018-08-20 11:19 | NUR ---
OT NOTE: PT PERFORMED BETTER TODAY. BED MOB WITH SPV; SIT TO STAND WITH CGA; PERFORMED BETTER WITH NWB TODAY. TOILET TRANSFERS WITH MIN ASSIST; HYGIENE WITH SPV; ABLE TO DOFF AND BEVERLY PULL UPS WITH MIN ASSIST; SIMPLE GROOMING WITH SET UP; UE DRESSING WITH SET UP. TERRANCE SUMNER, OTR/L
[2018-08-20 12:29] VITALS: BP 122/75
--- NOTE | 2018-08-20 12:45 | NUR ---
DRESSING CHANGED BY DR. CADENA.
--- NOTE | 2018-08-20 13:15 | NUR ---
PATIENT RECIEVED DC INSTRUCTIONS AT THIS TIME. VERBALIZED UNDERSTANDING. IV REMOVED TO RIGHT ARM WITH CATH TIP INTACT. AT BEDSIDE. LEFT PICC FLUSHED WITH SALINE FLUSH EACH LINE AND ORANGE CAP PLACED. WAITING FOR WC FOR DC. CALL LIGHT WITHIN REACH.
--- NOTE | 2018-08-20 17:34 | MORECARE ---
CASE MANAGEMENT DISCHARGE SUMMARY PATIENT: DAVID HOWELL UNIT: [id number] ADM DATE: 08/14/18 AGE: 78 : 40 SEX: M ROOM/BED: D.2204 AUTHOR: MATTHEWDOC PHYSICIAN: REFERRING PHYSICIAN: SANG PETERS MD DATE OF SERVICE: 08/20/18 Discharge Plan Patient Name: DAVID HOWELL Facility: [facility]:[place] : 1940 Planned Disposition: Anticipated Discharge Date: Discharge Date: 08/20/2018 Expected LOS: Initial Reviewer: [email or web address] Initial Review Date: 08/19/2018 Generated: 08/20/18 6:34 pm Comments DCP- Discharge Planning Updated by [email or web address]: Roula Martino on 08/19/18 11:[address] Patient Name: DAVID HOWELL Admission Status: ER Accout number: [id number] Admission Date: 08-14-2018 : 1940 Admission Diagnosis:PNEUMONIA, UNSPECIFIED ORGANISM Attending: SANG PETERS Current LOS: 5 Anticipated DC Date: Planned Disposition: Primary Insurance: [facility] MEDICARE SOLUTIONS Discharge Planning Comments: CM MET WITH PATIENT ABOUT DC PLANNING/NEEDS. STATES WILL BE USING CRUTCHES AND HAS WALKER AND CRUTCHES. PLANS TO RESUME HH BUT DOESN'T REMEMBER HH COMPANY. CM WILL CALL AND ASK HER. HOME ENVIRONMENT SAFE. CM TO FOLLOW AND ASSIST NEEDED. Digital Performance Analyst: Roula Martino Appended by Roula Martino on 08/19/2018 12:50 CDT: I SPOKE WITH HIS AND SHE STATES HAS [facility] AND [employer] [facility]. WAS CURRENTLY GETTING THOSE SERVICES BEFORE ADMIT TO HOSPITAL. DCPIA - Discharge Planning Initial Assessment Updated by [id number]: Roula Martino on 08/19/18 12:43 pm * Is the patient Alert and Oriented? Yes * PCP ZEEO * [facility] * Preadmission Environment Home with Family * ADLs Independent * Equipment Crutch Walker * List name and contact numbers for known caregivers / representatives who currently or will assist patient after discharge: CARMELLA ADAME, * Community resources currently utilized Home Health * Additional services required to return to the preadmission environment? No * Can the patient safely return to the preadmission environment? Yes * Has this patient been hospitalized within the prior 30 days at any hospital? Yes Last DP export: 08/19/18 11:52 am Patient Name: DAVID HOWELL Page [phone] at 1734 All edits/amendments must be made on the electronic document DICTATION DATE: 08/20/181732 THEORETICAL PHYSICIST: SENDY 08/20/181732 RPT#: [id number] DC DATE:08/20/18 STATUS: DIS IN [facility] [address] [place] [address] END OF REPORT
== END 2018-08-20 13:15 | disposition home health service (06) | DRG 299 ==
LOC: D.ER 14:52 → D.MS 17:34
PROVIDERS: Family Medicine; Internal Medicine Nephrology; ADMIT Family Medicine; ATTEND Family Medicine
DX: E11.52 Type 2 diabetes mellitus with diabetic peripheral angiopathy with gangrene (principal); J18.9 Pneumonia, unspecified organism; A48.0 Gas gangrene; M86.679 Other chronic osteomyelitis, unspecified ankle and foot; N17.9 Acute kidney failure, unspecified; M86.172 Other acute osteomyelitis, left ankle and foot; I70.262 Atherosclerosis of native arteries of extremities with gangrene, left leg; L97.529 Non-pressure chronic ulcer of other part of left foot with unspecified severity

== ENCOUNTER 2018-08-21 09:43 | Emergency (ER) | payer MEDICARE ==
[~2018-08-21] VITALS: Ht 182.9 cm; Wt 80.0 kg
[~2018-08-21 09:43] MED LIST changes: +NEURONTIN 300300 MG PO; +ULTRAM50 MG PO
[2018-08-21 09:46] VITALS: Ht 182.9 cm; Wt 80.0 kg
[2018-08-21 11:57] VITALS: BP 108/51
== END 2018-08-21 11:57 | disposition home or self-care (01) ==
LOC: D.ER 09:43
DX: T82.898A Other specified complication of vascular prosthetic devices, implants and grafts, initial encounter (principal)

== ENCOUNTER 2018-10-25 11:43 | Inpatient (IN) | payer MEDICARE ==
[~2018-10-25] VITALS: Ht 182.9 cm; Wt 75.8 kg
[2018-10-25] MEDS ORDERED: TUMS X-STR300 MG PO (12:20)
[2018-10-25] MEDS ORDERED: FOLIC ACID1 MG PO (12:29)
[2018-10-25] MEDS ORDERED: BENADRYL25 MG PO (12:29)
--- NOTE | 2018-10-25 12:30 | NUR ---
RECEIVED TO ROOM [address] OCAMPO'S OFFICE. A/O X3. SKIN IS INTACT WTIHOUT REDNESS EXCEPT LEFT FOOT WHICH HAS LARGE AREAS OF ESCHAR ON TOES AND SIDES OF FOOT. ELVIRA MCCLOUD HERE TO ASSESS WOUND WELL. WILL MONITOR.
[2018-10-25 12:38] VITALS: BP 118/60; BMI 22.9
[2018-10-25 12:51] LABS: BASOPHILS 0.2 % (0-2); EOSINOPHILS 0.1 % (0-7); HEMATOCRIT 28.7 % (42.0-54.0); HEMOGLOBIN 10.1 g/dL (13.5-17.5); IMMATURE GRANULOCYTES 0.4 % (0-5); LYMPHOCYTES 16.1 % (15-50); MCH 31.9 pg (26.0-34.0); MCHC 35.2 g/dL (31.0-37.0); MCV 90.5 fL (80.0-100.0); MEAN PLATELET VOLUME 8.8 fL (7.4-10.4); MONOCYTES 13.4 % (2-11); NEUTROPHILS 69.8 % (40-80); PLATELET COUNT 285 10x3/uL (130-400); RBC 3.17 10x6/uL (4.20-6.10); RDW 15.4 % (11.5-14.5); WBC 11.7 10x3/uL (4.8-10.8)
[2018-10-25 13:01] LABS: ALBUMIN 2.8 g/dL (3.4-5.0); ANION GAP 15.4 mmol/L (8-16); BILIRUBIN - TOTAL 0.72 mg/dL (0.2-1.3); CALCIUM 9.6 mg/dL (8.5-10.1); CREATININE - SERUM 2.1 mg/dL (0.6-1.3); POTASSIUM - SERUM 4.4 mmol/L (3.5-5.1); PROTEIN - SERUM 7.9 g/dL (6.4-8.2)
--- NOTE | 2018-10-25 13:15 | NUR ---
IV SITED TO RIGHT FOREARM AFTER ONE ATTEMPT WITH 20 G. DRESSING APPLIED TO LEFT FOOT USING WET TO DRY.
--- NOTE | 2018-10-25 16:21 | NUR ---
URINE SPECIMEN SENT TO LAB FOR UA PER ORDERS.
--- NOTE | 2018-10-25 16:30 | NUR ---
FSBS 319. GIVEN 8 UNITS HUMALOG SUBQ PER SS. DENIES NEEDS.
[2018-10-25 16:42] VITALS: BP 127/69
[2018-10-25 16:57] LABS: APPEARANCE CLEAR (CLEAR); BILIRUBIN NEGATIVE (NEGATIVE); COLOR YELLOW (YELLOW); GLUCOSE 1000 mg/dL (NEGATIVE); KETONE NEGATIVE (NEGATIVE); NITRITE NEGATIVE (NEGATIVE); PROTEIN TRACE mg/dL (NEGATIVE); UROBILINOGEN NORMAL (NORMAL)
--- NOTE | 2018-10-25 18:29 | NUR ---
ATE ABOUT HALF OF SUPPER. DENIES NEEDS. NO CHANGES NOTED.
--- NOTE | 2018-10-25 19:15 | NUR ---
PT ALERT AND ORIENTED WHEN ENTERING THE ROOM. AT BEDSIDE. PT CURRENTLY ON ISOLATION FOR OPEN WOUND. RIGHT TOES ARE AMPUATED. LEFT FOOT HAS DRESSING TO AREA BUT CAN SEE NECROSIS THROUGH TOP OF DRESSING TO THE LEFT GREAT TOE. NO COMPLAINTS OF PAIN. STATES "I CAN'T FEEL THEM ANYWAYS." SCD TO THE RIGHT LEG. RIGHT FORE ARM IV THAT IS INFUSING NS @ 75. DENIES NEEDS AT THIS TIME. HAS CALL LIGHT IN HAND. NO O2 AT THIS TIME. BED LOCKED AND LOWERED. CPOC.
[2018-10-25 20:00] VITALS: BP 97/45
--- NOTE | 2018-10-25 20:45 | NUR ---
FSBS 266. AT BEDSIDE DURING MED PASS. TOLERATED MEDICATIONS WELL. DENIES FURTHER NEEDS.
[2018-10-26] VITALS: BP 120/69
--- NOTE | 2018-10-26 01:19 | NUR ---
RESTING WITH NO DISTRESS NOTED. UNLABORED RESPIRATIONS AT THIS TIME. HOB REMAINS ELEVATED. CALL LIGHT WITHIN REACH. CPOC.
[2018-10-26 04:00] VITALS: BP 107/53
[2018-10-26 05:35] LABS: BASOPHILS 0.2 % (0-2); EOSINOPHILS 0.6 % (0-7); HEMATOCRIT 28.8 % (42.0-54.0); HEMOGLOBIN 9.7 g/dL (13.5-17.5); IMMATURE GRANULOCYTES 0.2 % (0-5); MCHC 33.7 g/dL (31.0-37.0); MONOCYTES 16.3 % (2-11); NEUTROPHILS 61.7 % (40-80); PLATELET COUNT 283 10x3/uL (130-400); RBC 3.13 10x6/uL (4.20-6.10); RDW 15.7 % (11.5-14.5)
[2018-10-26 05:45] LABS: WBC 8.1 10x3/uL (4.8-10.8)
[2018-10-26 06:02] LABS: ALBUMIN 2.6 g/dL (3.4-5.0); ANION GAP 13.8 mmol/L (8-16); BILIRUBIN - TOTAL 0.6 mg/dL (0.2-1.3); CREATININE - SERUM 1.8 mg/dL (0.6-1.3); POTASSIUM - SERUM 3.8 mmol/L (3.5-5.1); PROTEIN - SERUM 7.5 g/dL (6.4-8.2)
--- NOTE | 2018-10-26 06:41 | NUR ---
I have reviewed this patient and I concur with the Shift Assessment completed by the Licensed Practical Nurse today this shift.
[2018-10-26 08:13] VITALS: BP 100/46
[2018-10-26 11:31] VITALS: Ht 182.9 cm; Wt 75.8 kg
--- NOTE | 2018-10-26 12:51 | NUR ---
PT RESTING IN BED. NO SIGNS OF DISTRESS. IV TO RIGHT FORARM PATENT NO REDNESS OR TENDERNESS. HAS AMP TO RIGHT FOOT DENIES ANY PAIN. ON TELEMETRY 100 SR. ON CONTACT ISO. DENIES ANY FURTHER NEED AT THIS TIME. CALL LIGHT IN REACH. BED LOW POSITION. NO FAMILY AT BEDSIDE AT THIS TIME.
[2018-10-26 13:21] VITALS: BP 106/52
[2018-10-26 16:11] VITALS: BP 105/42
--- NOTE | 2018-10-26 19:45 | NUR ---
SITTING UP IN BED TALKING TO . NO DISTRESS. DENIES PAIN. RESP EVEN AND NONLABORED. NS @ 75 ML/HR INFUSING IN RT FOREARM WITHOUT DIFF. SCD IN USE TO RLE. DRSG NOTED TO LLE. TOES ARE AMPUTATES ON RT FOOT. TELEMETRY SHOWS SR WITH RATE OF 89. ALERT AND ORIENTED X4. DENIES NEEDS. SR ELEVATED X2. CL IN REACH.
[2018-10-26 19:55] VITALS: BP 102/48
--- NOTE | 2018-10-26 23:30 | NUR ---
SITTING UP IN BED EATING FRUIT. NO DISTRESS. CL IN REACH.
[2018-10-27] VITALS (7 sets, daily range): BP systolic 97–133; BP diastolic 48–71
[2018-10-27 05:12] LABS: BASOPHILS 0.1 % (0-2); EOSINOPHILS 1.5 % (0-7); HEMATOCRIT 28.1 % (42.0-54.0); HEMOGLOBIN 9.4 g/dL (13.5-17.5); IMMATURE GRANULOCYTES 0.3 % (0-5); LYMPHOCYTES 21.7 % (15-50); MCH 30.6 pg (26.0-34.0); MCHC 33.5 g/dL (31.0-37.0); MCV 91.5 fL (80.0-100.0); MONOCYTES 12.9 % (2-11); NEUTROPHILS 63.5 % (40-80); PLATELET COUNT 285 10x3/uL (130-400); RBC 3.07 10x6/uL (4.20-6.10); RDW 15.7 % (11.5-14.5); WBC 7.8 10x3/uL (4.8-10.8)
[2018-10-27 05:24] LABS: ALBUMIN 2.3 g/dL (3.4-5.0); ANION GAP 15.4 mmol/L (8-16); CALCIUM 8.8 mg/dL (8.5-10.1); CARBON DIOXIDE 26.2 mmol/L (21.0-32.0); CREATININE - SERUM 1.6 mg/dL (0.6-1.3); POTASSIUM - SERUM 3.6 mmol/L (3.5-5.1)
[2018-10-27 05:51] LABS: BILIRUBIN - TOTAL 0.4 mg/dL (0.2-1.3)
[2018-10-27 05:52] LABS: PROTEIN - SERUM 7.7 g/dL (6.4-8.2); VANCOMYCIN - RANDOM 14.2 ug/mL (10.0-20.0)
--- NOTE | 2018-10-27 08:00 | NUR ---
ASSESSMENT COMPLETE, VS STABLE. IV INTACT. COMPLAINTS OF NAUSEA. WILL GIVE ZOFRAN FOR NAUSEA. DRESSING TO LLE INTACT. CALL LIGHT WITHIN REACH.
--- NOTE | 2018-10-27 11:10 | NUR ---
PATIENT IN BED WITH IV INTACT. NO COMPLAINTS OR SIGNS OF DISTRESS. NAUSEA BETTER AT THIS TIME. CALL LIGHT WITHIN REACH.
--- NOTE | 2018-10-27 18:01 | NUR ---
PATIENT SITTING UP IN BED EATING AT THIS TIME. NO COMPLAINTS OR SIGNS OF DISTRESS. IV INTACT. CALL LIGHT WITHIN REACH.
--- NOTE | 2018-10-27 19:46 | NUR ---
pATIENT RESTING IN BED WITH NO NEEDS NOTED OR STATED. ALERT AND ORENTED ABLE TO VOICE NEEDS AND WANTS TO STAFF. CALL LIGHT AND WATER IN REACH. REMAINS ON CONTACT ISOLATION FOR WOUND INFECTION. SCD TO RIGHT LEG. BED LOW CHECKED OFTEN FOR NEEDS AND SAFETY.
[2018-10-28] VITALS (8 sets, daily range): BP systolic 103–122; BP diastolic 46–69
[2018-10-28 05:07] LABS: BASOPHILS 0.2 % (0-2); EOSINOPHILS 2.6 % (0-7); HEMATOCRIT 26.4 % (42.0-54.0); HEMOGLOBIN 8.9 g/dL (13.5-17.5); IMMATURE GRANULOCYTES 0.6 % (0-5); LYMPHOCYTES 22.9 % (15-50); MCH 31.1 pg (26.0-34.0); MCHC 33.7 g/dL (31.0-37.0); MCV 92.3 fL (80.0-100.0); MEAN PLATELET VOLUME 8.4 fL (7.4-10.4); MONOCYTES 13.2 % (2-11); NEUTROPHILS 60.5 % (40-80); PLATELET COUNT 258 10x3/uL (130-400); RBC 2.86 10x6/uL (4.20-6.10); RDW 15.4 % (11.5-14.5); WBC 8.8 10x3/uL (4.8-10.8)
[2018-10-28 05:37] LABS: ALBUMIN 2.2 g/dL (3.4-5.0); ANION GAP 13.9 mmol/L (8-16); BILIRUBIN - TOTAL 0.43 mg/dL (0.2-1.3); CREATININE - SERUM 1.6 mg/dL (0.6-1.3); POTASSIUM - SERUM 3.9 mmol/L (3.5-5.1); PROTEIN - SERUM 7.4 g/dL (6.4-8.2); VANCOMYCIN - RANDOM 15.1 ug/mL (10.0-20.0)
--- NOTE | 2018-10-28 08:00 | NUR ---
AWAKE AND ALERT. ORIENTED X3. NO C/O AT THIS TIME. LUNGS ARE CLEAR BILATERALLY, NO COUGH NOTED. SKIN IS INTACT WTIHOUT REDNESS EXCEPT TO LEFT FOOT WHICH IS NEUCROTIC WITH DRY INTACT DRESSING IN PLACE. IV TO RIGHT FOREARM IS PATETN WTIHOUT REDNESS AT INSERTION SITE. DENIES NEEDS. FSBS 160. GIVEN 4 UNITS HUMALOG SUBQ PER SS.
--- NOTE | 2018-10-28 09:50 | NUR ---
RESTING QUIETLY IN BED WITH EYES CLOSED. DENIES NEEDS.
[2018-10-28 09:51] LABS: FERRITIN 873 ng/mL (3-244)
[2018-10-28 10:08] LABS: % SATURATION 19 % (15-55); IRON 31 ug/dl (35-150); TOTAL IRON BIND CAPACITY 161 ug/dl (260-445); UNSAT IRON BIND CAPACITY 130 ug/dl (150-375)
--- NOTE | 2018-10-28 13:08 | NUR ---
OFF UNIT VIA BED TO SURGERY. AWARE OF SAME.
--- NOTE | 2018-10-28 15:11 | MORECARE ---
CASE MANAGEMENT DISCHARGE SUMMARY PATIENT: DAVID HOWELL UNIT: [id number] ADM DATE: 10/25/18 AGE: 78 : 40 SEX: M ROOM/BED: D.2202 AUTHOR: GERALDINE CASTRO PHYSICIAN: REFERRING PHYSICIAN: CATERINA OCAMPO DO DATE OF SERVICE: 10/28/18 Discharge Plan Patient Name: DAVID HOWELL [facility] [facility] 1940 Planned Disposition: Anticipated Discharge Date: Discharge Date: Expected LOS: Initial Reviewer: [id number] Initial Review Date: 10/25/2018 Generated: 10/28/18 4:11 pm Comments DCP- Discharge Planning Updated by [id number]: Irina Pelayo on 10/28/18 2:[address] WAS UNABLE TO SEE PATIENT TODAY BECAUSE HE WAS IN SURGERY WILL TRAY AGAIN TOMORROW Patient Name: DAVID HOWELL Page [phone] at 1511 All edits/amendments must be made on the electronic document DICTATION DATE: 10/28/18 151 TESTER ARMATURE OR FIELDS: SENDY 10/28/18 151 RPT#: [id number] DC DATE: STATUS: ADM IN [facility] [address] [place] [address] END OF REPORT
--- NOTE | 2018-10-28 15:23 | NUR ---
RETURNED FROM SURGERY. A/O X3. NO C/O PAIN OR DISCOMFORT. DRESSING TO LEFT BKA IS DRY AND INTACT.
--- NOTE | 2018-10-28 18:38 | NUR ---
SITTING UP IN BED EATING SUPPER. AT BEDSDIE. DENIES NEEDS. NO CHANGES NOTED. DRESSING TO LEFT BKA DRY AND INTACT.
--- NOTE | 2018-10-28 20:29 | NUR ---
REC'D. CHGE OF SHIFT WALKING ROUNDS IN BED SUPINE POSITION HOB UP 30 DEGRESS.REMAINS SLIGHTLY SEDATED BUT AROUSES TO VERBAL STIMULI.DRESSING DRY AND INTACT TO LEFT BKA ELEVATED ON PILLOW SCD TO RIGHT LEG.ICE IN PLACE. AT BEDSIDE.WILL CONTINUE TO MONITOR FOR ANY CHGES. IN NEUROVASCULAR STATUS AND FOLLOW CURRENT PLAN OF CARE.
[2018-10-29 01:17] VITALS: BP 104/56
[2018-10-29 04:59] VITALS: BP 162/78
[2018-10-29 06:30] LABS: BASOPHILS 0.2 % (0-2); EOSINOPHILS 1.5 % (0-7); HEMATOCRIT 25.7 % (42.0-54.0); HEMOGLOBIN 8.6 g/dL (13.5-17.5); IMMATURE GRANULOCYTES 0.7 % (0-5); LYMPHOCYTES 16.9 % (15-50); MCH 30.9 pg (26.0-34.0); MCHC 33.5 g/dL (31.0-37.0); MCV 92.4 fL (80.0-100.0); MONOCYTES 10.7 % (2-11); PLATELET COUNT 302 10x3/uL (130-400); RBC 2.78 10x6/uL (4.20-6.10); RDW 15.7 % (11.5-14.5); WBC 8.7 10x3/uL (4.8-10.8)
[2018-10-29 06:50] LABS: BILIRUBIN - TOTAL 0.43 mg/dL (0.2-1.3); CALCIUM 8.3 mg/dL (8.5-10.1); CARBON DIOXIDE 22.4 mmol/L (21.0-32.0); CREATININE - SERUM 1.2 mg/dL (0.6-1.3); POTASSIUM - SERUM 4.4 mmol/L (3.5-5.1); PROTEIN - SERUM 6.9 g/dL (6.4-8.2); VANCOMYCIN - RANDOM 11.6 ug/mL (10.0-20.0)
--- NOTE | 2018-10-29 07:28 | NUR ---
I have reviewed this patient and I concur with the Shift Assessment completed by the Licensed Practical Nurse today this shift.
[2018-10-29 08:01] VITALS: BP 125/69
--- NOTE | 2018-10-29 08:19 | NUR ---
AWAKE AND ALERT.ORIENTED X3. REQUESTED AND GIVNE 50MG ULTRAM PO FOR C/O LEFT BKA PAIN LEVEL 7. WILL MONITOR. LUNGS ARE CLEAR BIALTERALLY, NO COUGH NOTED. SKIN IS INTACT WTIHOUT REDNESS EXCEPT LEFT BKA INCISION, DRESSING TO SAME IS DRY AND INTACT. IV TO LEFT FOREARM IS PATENT WTIHOUT REDNESS AT INSERTION SITE. VOIDED CLEAR YELLOW URINE IN URINAL WITHOUT DIFFICULTY. BREAKFAST SERVED IN ROOM.
--- NOTE | 2018-10-29 11:41 | NUR ---
SPOKE WITH ELVIRA MCCLOUD APN RE PAIN MANAGEMENT. NEW ORDERS RECEIVED. PATIENT REQUESTED AND GIVEN ONE HYDROCODONE PO FOR C/O LEFT BKA PAIN. WILL MONITOR.
--- NOTE | 2018-10-29 11:42 | NUR ---
SPOKE WITH RUFINO WILEY IN INFECTION CONTROL AND WAS ABLE TO D/C ISOLATION.
[2018-10-29 13:27] VITALS: BP 116/69; BP 125/69
--- NOTE | 2018-10-29 13:55 | MORECARE ---
CASE MANAGEMENT DISCHARGE SUMMARY PATIENT: DAVID HOWELL UNIT: [id number] ADM DATE: 10/25/18 AGE: 78 : 40 SEX: M ROOM/BED: D.2202 AUTHOR: GERALDINE CASTRO PHYSICIAN: REFERRING PHYSICIAN: CATERINA OCAMPO DO DATE OF SERVICE: 10/29/18 Discharge Plan Patient Name: DAVID HOWELL Facility: [facility]:[place] : 1940 Planned Disposition: Inpatient Rehab Anticipated Discharge Date: Discharge Date: Expected LOS: Initial Reviewer: [email or web address] Initial Review Date: 10/25/2018 Generated: 10/29/18 2:54 pm Comments DCP- Discharge Planning Updated by [email or web address]: Irina Pelayo on 10/29/18 12:[address] Patient Name: DAVID HOWELL Admission Status: Elective Accout number: [id number] Admission Date: 10-25-2018 : 1940 Admission Diagnosis:TYPE 2 DIABETES MELLITUS WITH OTHER SPECIFIED COMPLICAT Attending: CATERINA OCAMPO Current LOS: 4 Anticipated DC Date: Planned Disposition: Inpatient Rehab Primary Insurance: [facility] MEDICARE SOLUTIONS Discharge Planning Comments: CM met with patient to complete initial dc planning assessment. CM educated patient on the CM role and verbal consent given by patient to complete assessment. Patient lives at home with his where he was independent with his care. At discharge patient plans to go to inpatient rehab at [facility] and feels this is a safe discharge. We will have to get a auth from his insurance. CM discussed availability of home health, rehab services, and medical equipment. He has an Elevated toilet seat, shower chair, walker, wheelchair. Patient denied known discharge needs at this time. CM will continue to follow and will assist as needed with dc plans/needs. Special Delivery Clerk: Irina Pelayo DCP- Discharge Planning Updated by [id number]: Irina Pelayo on 10/29/18 12:[address] SPOKE WITH MARK LAUREANO FOR THE AMPUTATION PROTECTOR. I FAXED ORDER TO HER. DCP- Discharge Planning Updated by [id number]: Irina Pelayo on 10/28/18 2:[address] WAS UNABLE TO SEE PATIENT TODAY BECAUSE HE WAS IN SURGERY WILL TRAY AGAIN TOMORROW DCPIA - Discharge Planning Initial Assessment Updated by [email or web address]: Irina Pelayo on 10/29/18 1:50 pm * Is the patient Alert and Oriented? Yes * How many steps to enter\exit or inside your home? 2/RAMP * PCP TERRENCE * Pharmacy [address] * Preadmission Environment Home with Family * ADLs Independent * Equipment Crutch Elevated Toliet Seat Rolling Walker Shower Chair Walker Wheelchair * List name and contact numbers for known caregivers / representatives who currently or will assist patient after discharge: DEEP ()[phone] * Verbal permission to speak to the caregivers and representatives has been obtained from the patient. N/A * Community resources currently utilized None * Additional services required to return to the preadmission environment? Yes * Can the patient safely return to the preadmission environment? No * Has this patient been hospitalized within the prior 30 days at any hospital? No Last DP export: 10/28/18 2:11 pm Patient Name: DAVID HOWELL Page 12991 at 1355 All edits/amendments must be made on the electronic document DICTATION DATE: 10/29/18 1354 MEAT PROCESS WORKER: SENDY 10/29/18 1354 RPT#: [id number] DC DATE: STATUS: ADM IN [facility] [address] [place] [address] END OF REPORT
--- NOTE | 2018-10-29 15:19 | NUR ---
OT NOTE: PT COMPLETED BED MOB TASKS WITH MIN A. PT COMPLETED SIMPLE GROOMING TASKS WITH MIN A. THANK YOU, KYARA MASON
--- NOTE | 2018-10-29 16:00 | NUR ---
UP TO BSC. GIVEN BATH WHILE UP. NO RESULTS FROM DULCOLAX. FSBS 231. GIVEN 8 UNITS HUMALOG SUB Q FOR SAME.
[2018-10-29 16:10] VITALS: BP 110/56
--- NOTE | 2018-10-29 16:31 | NUR ---
Rehab Note- Acute Inpatient Rehab Prescreen order received. THe patient has [facility] insurance & will require a PreAuth prior to an inpatietn acute rehab stay. PreAuth has been initiated. Will continue to follow at this time. Thank you for this referral! Fermin Reynoso RN Clinical Liaison, [facility] Re[facility]
--- NOTE | 2018-10-29 16:40 | NUR ---
REQUESTED AND GIVEN ONE HYDROCODONE PO FOR C/O LEFT BKA PAIN LEVEL 10. WILL MONITOR.
--- NOTE | 2018-10-29 16:56 | NUR ---
REQUESTED AND GIVNE ONE HYDROCODONE PO FOR C/O LEFT BKA PAIN LEVEL 10.
--- NOTE | 2018-10-29 18:27 | NUR ---
REPORTS PAIN ALMOST GONE AT THIS TIME. DENIES NEEDS. NO CHANGES NOTED.
--- NOTE | 2018-10-29 20:30 | NUR ---
AROUSES EASILY TO VERBAL STIMULI. RESP EVEN AND UNALBORED. NO DISTRESS NOTED. IV INFUSING TO RFA WITHOUT REDNESS OR EDEMA NOTED. MICAH WRAP DRESSING INTACT TO RIGHT BKA WITH NO DRAINAGE NOTED. NO COMPLAITNS OF PAIN AT PRESENT. CL IN REACH
[2018-10-29 21:44] VITALS: BP 105/62
[2018-10-30 01:11] VITALS: BP 118/71
--- NOTE | 2018-10-30 01:59 | NUR ---
I have reviewed this patient and I concur with the Shift Assessment completed by the Licensed Practical Nurse today this shift.
[2018-10-30 05:18] VITALS: BP 98/54
[2018-10-30 07:09] LABS: BASOPHILS 0.2 % (0-2); EOSINOPHILS 2.9 % (0-7); HEMATOCRIT 27.8 % (42.0-54.0); HEMOGLOBIN 9.1 g/dL (13.5-17.5); LYMPHOCYTES 17.4 % (15-50); MCH 30.8 pg (26.0-34.0); MCHC 32.7 g/dL (31.0-37.0); MCV 94.2 fL (80.0-100.0); MONOCYTES 13.4 % (2-11); NEUTROPHILS 65.1 % (40-80); PLATELET COUNT 330 10x3/uL (130-400); RBC 2.95 10x6/uL (4.20-6.10); RDW 16.1 % (11.5-14.5); WBC 8.7 10x3/uL (4.8-10.8)
[2018-10-30 07:38] LABS: ANION GAP 14.4 mmol/L (8-16); BILIRUBIN - TOTAL 0.43 mg/dL (0.2-1.3); CALCIUM 8.6 mg/dL (8.5-10.1); CARBON DIOXIDE 22.7 mmol/L (21.0-32.0); CREATININE - SERUM 1.3 mg/dL (0.6-1.3); POTASSIUM - SERUM 4.1 mmol/L (3.5-5.1)
--- NOTE | 2018-10-30 07:38 | NUR ---
PT RESTING IN BED. DENIES ANY NEEDS. NO S/S OF ACUTE DISTRESS. CL IN PLACE.
[2018-10-30 09:03] VITALS: BP 112/62
--- NOTE | 2018-10-30 11:04 | NUR ---
NUTRITION F/U ADA DIET RESUMED. 100% INTAKE BREAKFAST THIS AM. WILL CONTINUE TO PROVIDE ADA DIET, MONITOR PT PROGRESS. RD FOLLOWING
[2018-10-30 13:48] VITALS: BP 110/60; BP 172/97
[2018-10-30 17:10] VITALS: BP 106/57
--- NOTE | 2018-10-30 19:46 | NUR ---
PT RESTING IN BED. TALKING ON PHONE. NO S/S OF ACUTE DISTRESS. CL IN PLACE.
--- NOTE | 2018-10-30 21:04 | NUR ---
WATCHING TV QUEITLY. NO COMPLAITNS VOICED. NO DISTRESS NOTED. IV INFUSING TO RFA WIHTOUT REDNESS OR EDEMA NOTED. MICAH WRAP INTACT TO LBKA WITHOUT DRAINAGE NOTED. CL IN REACH
[2018-10-30 21:53] VITALS: BP 106/61
[2018-10-31 00:25] VITALS: BP 105/57
--- NOTE | 2018-10-31 03:43 | NUR ---
I have reviewed this patient and I concur with the Shift Assessment completed by the Licensed Practical Nurse today this shift.
[2018-10-31 05:16] VITALS: BP 122/70
[2018-10-31 06:02] LABS: BASOPHILS 0.2 % (0-2); EOSINOPHILS 2.9 % (0-7); HEMATOCRIT 25.3 % (42.0-54.0); HEMOGLOBIN 8.2 g/dL (13.5-17.5); IMMATURE GRANULOCYTES 0.7 % (0-5); LYMPHOCYTES 19.9 % (15-50); MCH 30.5 pg (26.0-34.0); MCHC 32.4 g/dL (31.0-37.0); MCV 94.1 fL (80.0-100.0); MEAN PLATELET VOLUME 8.7 fL (7.4-10.4); MONOCYTES 12.7 % (2-11); NEUTROPHILS 63.6 % (40-80); PLATELET COUNT 293 10x3/uL (130-400); RBC 2.69 10x6/uL (4.20-6.10); RDW 16.1 % (11.5-14.5); WBC 8.2 10x3/uL (4.8-10.8)
[2018-10-31 06:38] LABS: ALBUMIN 1.8 g/dL (3.4-5.0); ANION GAP 14.4 mmol/L (8-16); BILIRUBIN - TOTAL 0.38 mg/dL (0.2-1.3); CALCIUM 8.5 mg/dL (8.5-10.1); CREATININE - SERUM 1.2 mg/dL (0.6-1.3); POTASSIUM - SERUM 4.4 mmol/L (3.5-5.1); PROTEIN - SERUM 6.5 g/dL (6.4-8.2)
--- NOTE | 2018-10-31 07:04 | NUR ---
LYING QUIELTY WITH NO DISTRESS NOTED. CL IN REACH
[2018-10-31 08:47] VITALS: BP 115/56
--- NOTE | 2018-10-31 09:10 | NUR ---
PT RESTING IN BED. AROUSED BY VERBAL STIMULI. NO S/S OF ACUTE DISTRESS. CL IN PLACE.
[2018-10-31 12:52] VITALS: BP 97/44
--- NOTE | 2018-10-31 15:23 | NUR ---
OT NOTE: PT COMPLETED BED MOB WITH MIN A. PT COMPLETED SITTING BALANCE WITH SPV. PT COMPLETED SIT TO STAND WITH MIN A. PT COMPLETED UE AROM AX. THANK YOU, KYARA MASON
--- NOTE | 2018-10-31 16:14 | NUR ---
OT NOTE: PERFORMED BED MOB WITH CGA AND EXT TIME. SIT TO STAND WITH WALKER AND MOD ASSIST. SIDE STEPS WITH WALKER AND MOD ASSIST. GOOD DYNAMIC SITTING ON EOB WHILE PERFORMING ADLS. BACK TO BED WITH MIN ASSIST FOR POSITIONING. TERRANCE SUMNER, OTR/L
[2018-10-31 17:49] VITALS: BP 98/55
[2018-10-31 21:26] VITALS: BP 113/59
--- NOTE | 2018-10-31 21:45 | NUR ---
LYING QUEITLY WITH NO DISTRESS NOTED. RESP UNALBORED. IV TO RFA INTACT WITHOUT REDNESS OR EDEMA NOTED. MICAH WRAP TO LEFT STUMP INTACT WITH NO DRAINAGE NOTED. CL IN REACH
[2018-11-01 00:35] VITALS: BP 107/60
--- NOTE | 2018-11-01 03:43 | NUR ---
I have reviewed this patient and I concur with the Shift Assessment completed by the Licensed Practical Nurse today this shift.
[2018-11-01 05:07] VITALS: BP 132/82
[2018-11-01 06:09] LABS: BASOPHILS 0.3 % (0-2); EOSINOPHILS 5.5 % (0-7); HEMATOCRIT 24.9 % (42.0-54.0); HEMOGLOBIN 8.1 g/dL (13.5-17.5); IMMATURE GRANULOCYTES 1.1 % (0-5); LYMPHOCYTES 24.3 % (15-50); MCH 30.7 pg (26.0-34.0); MCHC 32.5 g/dL (31.0-37.0); MCV 94.3 fL (80.0-100.0); MEAN PLATELET VOLUME 8.6 fL (7.4-10.4); MONOCYTES 13.7 % (2-11); NEUTROPHILS 55.1 % (40-80); PLATELET COUNT 339 10x3/uL (130-400); RBC 2.64 10x6/uL (4.20-6.10); RDW 16.1 % (11.5-14.5); WBC 6.2 10x3/uL (4.8-10.8)
[2018-11-01 06:27] LABS: ALBUMIN 1.9 g/dL (3.4-5.0); ANION GAP 12.3 mmol/L (8-16); BILIRUBIN - TOTAL 0.34 mg/dL (0.2-1.3); CALCIUM 8.7 mg/dL (8.5-10.1); CARBON DIOXIDE 26.9 mmol/L (21.0-32.0); CREATININE - SERUM 1.2 mg/dL (0.6-1.3); POTASSIUM - SERUM 4.2 mmol/L (3.5-5.1); PROTEIN - SERUM 6.9 g/dL (6.4-8.2)
--- NOTE | 2018-11-01 07:45 | NUR ---
ASSESSMENT COMPLETE. PATIENT CO PAIN. WILL TREAT ACCORDING TO EMAR. CL IN REACH. FRESH WATER PROVIDED. [facility]
[2018-11-01 08:30] VITALS: BP 139/71
[2018-11-01] MEDS ORDERED: HYDROCODON-ACE1 EA10 PO (08:55)
[2018-11-01] MEDS ORDERED: NEURONTIN 300300 MG PO (12:27)
--- NOTE | 2018-11-01 12:44 | NUR ---
OT NOTE: PT PERFORMED VERY WELL TODAY. BED MOB WITH SPV FOR ALL ROLLING, SUPINE TO SIT, AND SIT TO SUPINE. ABLE TO BEVERLY SOCK AND SHOE ON R SIDE WITH SET UP; SET UP FOR DONNING GOWN. SIT TO STAND X 2 TRIALS WITH BED IN LOWEST POSITION FOR TRICEP STRENGTHENING AND MOD ASSIST. ABLE TO HOP SEVERAL STEPS TODAY.. MUCH BETTER WITH SHOE ON TODAY. PT ANXIOUS TO GET TO REHAB. TERRANCE SUMNER, OTR/L
--- NOTE | 2018-11-01 12:45 | MORECARE ---
CASE MANAGEMENT DISCHARGE SUMMARY PATIENT: DAVID HOWELL UNIT: [id number] ADM DATE: 10/25/18 AGE: 78 : 40 SEX: M ROOM/BED: D.2202 AUTHOR: GERALDINE CASTRO PHYSICIAN: REFERRING PHYSICIAN: CATERINA OCAMPO DO DATE OF SERVICE: 11/01/18 Discharge Plan Patient Name: DAVID HOWELL Facility: [facility]:[place] : 1940 Planned Disposition: Inpatient Rehab Anticipated Discharge Date: Discharge Date: Expected LOS: Initial Reviewer: [email or web address] Initial Review Date: 10/25/2018 Generated: 11/01/18 1:44 pm Comments DCP- Discharge Planning Updated by [id number]: Irina Pelayo on 11/01/18 11:[address] AUTH RECEIVED FOR INPATIENT REHAB, PATIENT WILL BE DISCHARGING TO [facility] IN PATIENT REHAB TODAY. IMM SERVED AND EXPLAINED. CM TO FOLLOW AND ASSIST NEEDED DCP- Discharge Planning Updated by [id number]: Irina Pelayo on 10/29/18 12:[address] Patient Name: DAVID HOWELL Admission Status: Elective Accout number: [id number] Admission Date: 10-25-2018 : 1940 Admission Diagnosis:TYPE 2 DIABETES MELLITUS WITH OTHER SPECIFIED COMPLICAT Attending: CATERINA OCAMPO Current LOS: 4 Anticipated DC Date: Planned Disposition: Inpatient Rehab Primary Insurance: [facility] MEDICARE SOLUTIONS Discharge Planning Comments: CM met with patient to complete initial dc planning assessment. CM educated patient on the CM role and verbal consent given by patient to complete assessment. Patient lives at home with his where he was independent with his care. At discharge patient plans to go to inpatient rehab at [facility] and feels this is a safe discharge. We will have to get a auth from his insurance. CM discussed availability of home health, rehab services, and medical equipment. He has an Elevated toilet seat, shower chair, walker, wheelchair. Patient denied known discharge needs at this time. CM will continue to follow and will assist as needed with dc plans/needs. Floor Assembler: Irina Pelayo DCP- Discharge Planning Updated by [id number]: Irina Pelayo on 10/29/18 12:[address] SPOKE WITH PAT AT [facility] FOR THE AMPUTATION PROTECTOR. I FAXED ORDER TO HER. DCP- Discharge Planning Updated by [id number]: Irina Monaeken on 10/28/18 2:[address] WAS UNABLE TO SEE PATIENT TODAY BECAUSE HE WAS IN SURGERY WILL TRAY AGAIN TOMORROW DCPIA - Discharge Planning Initial Assessment Updated by [id number]: Irina Pierce on 10/29/18 1:50 pm * Is the patient Alert and Oriented? Yes * How many steps to enter\exit or inside your home? 2/RAMP * PCP FARO * Pharmacy [facility] [address] * Preadmission Environment Home with Family * ADLs Independent * Equipment Crutch Elevated Tol[place] Seat Rolling Walker Shower Chair Walker Wheelchair * List name and contact numbers for known caregivers / representatives who currently or will assist patient after discharge: DEEP ()[phone] * Verbal permission to speak to the caregivers and representatives has been obtained from the patient. N/A * Community resources currently utilized None * Additional services required to return to the preadmission environment? Yes * Can the patient safely return to the preadmission environment? No * Has this patient been hospitalized within the prior 30 days at any hospital? No Coverage Notice Reviewer: [id number] - Irina Monaeken Notice Issued Date-Time: 11/01/2018 12:20 Notice Type: IM Discharge Notice Notice Delivered To: Patient Relationship to Patient: Barrel Liner Name: Delivery Method: HAND - Hand Delivered Radha Days: Prior Verbal Notification: Recipient Understood Notice: Yes Recipient Signature: Yes Med Rec Note Co-signed by Attending: Coverage Notice Comment: Last DP export: 10/29/18 12:55 p Patient Name: DAVID HOWELL Page [id number] at 1245 All edits/amendments must be made on the electronic document DICTATION DATE: 11/01/184 BRAKE SHOE REBUILDER: SENDY 11/01/18 1244 RPT#: [id number] DC DATE: STATUS: ADM IN [facility] [address] [place] [address] END OF REPORT
[2018-11-01 12:56] VITALS: BP 137/72
--- NOTE | 2018-11-01 14:39 | NUR ---
Rehab Note- Received call from Catherine with [facility] with Auth#[id number] for approval for inpatient acute rehab stay with 72hrs to admit to [facility] Acute Inpatient Rehab unit befor auth expires. F/U clinical reviewer will be Kelly & clinicals will need to be faxed 7 days post admit date for updated review. , phone #[phone]. Spoke with MARY ANN Matos to inform of auth & for possible dc order to be obtained. Thank you for this referral! Di Reynoso RN Clinical Liaison, [facility]
--- NOTE | 2018-11-01 15:31 | NUR ---
DRESSING CHANGED PER NURSING MESSAGE. PATIENT TOLERATED WELL.
--- NOTE | 2018-11-01 16:15 | NUR ---
IV THERAPY REMOVED TIP INTACT FROM RH. MODERATE BLEEDING. PRESSURE HELD FOR 5 MIN UNTIL BLEEDING STOPPED. DISCHARGE INSTRUCTIONS GIVEN. PATIENT VERBALIZED UNDERSTANDING. CL IN REACH. WCTM
--- NOTE | 2018-11-05 12:04 | MORECARE ---
CASE MANAGEMENT DISCHARGE SUMMARY PATIENT: DAVID HOWELL UNIT: [id number] ADM DATE: 10/25/18 AGE: 78 : 40 SEX: M ROOM/BED: D.2202 AUTHOR: GERALDINE CASTRO PHYSICIAN: REFERRING PHYSICIAN: CATERINA OCAMPO DO DATE OF SERVICE: 11/05/18 Discharge Plan Patient Name: DAVID HOWELL Facility: [facility]:[place] : 1940 Planned Disposition: Inpatient Rehab Anticipated Discharge Date: Discharge Date: 11/01/2018 Expected LOS: 0 Initial Reviewer: [email or web address] Initial Review Date: 10/25/2018 Generated: 11/05/18 1:04 pm Comments DCP- Discharge Planning Updated by [email or web address]: Irina Pelayo on 11/01/18 11:[address] AUTH RECEIVED FOR INPATIENT REHAB, PATIENT WILL BE DISCHARGING TO [facility] IN PATIENT REHAB TODAY. IMM SERVED AND EXPLAINED. CM TO FOLLOW AND ASSIST NEEDED DCP- Discharge Planning Updated by [email or web address]: Irina Pelayo on 10/29/18 12:[address] Patient Name: DAVID HOWELL Admission Status: Elective Accout number: [id number] Admission Date: 10-25-2018 : 1940 Admission Diagnosis:TYPE 2 DIABETES MELLITUS WITH OTHER SPECIFIED COMPLICAT Attending: CATERINA OCAMPO Current LOS: 4 Anticipated DC Date: Planned Disposition: Inpatient Rehab Primary Insurance: [facility] MEDICARE SOLUTIONS Discharge Planning Comments: CM met with patient to complete initial dc planning assessment. CM educated patient on the CM role and verbal consent given by patient to complete assessment. Patient lives at home with his where he was independent with his care. At discharge patient plans to go to inpatient rehab at [facility] and feels this is a safe discharge. We will have to get a auth from his insurance. CM discussed availability of home health, rehab services, and medical equipment. He has an Elevated toilet seat, shower chair, walker, wheelchair. Patient denied known discharge needs at this time. CM will continue to follow and will assist as needed with dc plans/needs. Harness Mender: Irina Pelayo DCP- Discharge Planning Updated by [email or web address]: rIina Pelayo on 10/29/18 12:[address] SPOKE WITH PAT AT [facility] FOR THE AMPUTATION PROTECTOR. I FAXED ORDER TO HER. DCP- Discharge Planning Updated by [id number]: Irina Pelayo on 10/28/18 2:[address] WAS UNABLE TO SEE PATIENT TODAY BECAUSE HE WAS IN SURGERY WILL TRAY AGAIN TOMORROW DCPIA - Discharge Planning Initial Assessment Updated by [id number]: Irina Pierce on 10/29/18 1:50 pm * Is the patient Alert and Oriented? Yes * How many steps to enter\exit or inside your home? 2/RAMP * PCP FARO * Pharm[facility] [address] [place] [address] * Preadmission Environment Home with Family * ADLs Independent * Equipment Crutch Elevated [place] Seat Rolling Walker Shower Chair Walker Wheelchair * List name and contact numbers for known caregivers / representatives who currently or will assist patient after discharge: DEEP ()[phone] * Verbal permission to speak to the caregivers and representatives has been obtained from the patient. N/A * Community resources currently utilized None * Additional services required to return to the preadmission environment? Yes * Can the patient safely return to the preadmission environment? No * Has this patient been hospitalized within the prior 30 days at any hospital? No Coverage Notice Reviewer: [email or web address] - Irina Pelayo Notice Issued Date-Time: 11/01/2018 12:20 Notice Type: IM Discharge Notice Notice Delivered To: Patient Relationship to Patient: Consulting Sme Name: Delivery Method: HAND - Hand Delivered Radha Days: Prior Verbal Notification: Recipient Understood Notice: Yes Recipient Signature: Yes Med Rec Note Co-signed by Attending: Coverage Notice Comment: Last DP export: 11/01/18 11:45 a Patient Name: DAVID HOWELL Page [phone] at 1204 All edits/amendments must be made on the electronic document DICTATION DATE: 11/05/181202 CABLE SPLICER APPRENTICE: SENDY 11/05/181202 RPT#: [id number] DC DATE:11/01/18 STATUS: DIS IN [facility] [address] [facility] [place] [address] END OF REPORT
--- NOTE | 2018-11-18 15:34 | OP ---
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 PROCEDURE: Left below-knee amputation. SURGEON: Lucretia Adhikari MD WORKGROUP LEADER: Aide Krueger. INTRAOPERATIVE COMPLICATIONS: None. 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 The patient had been seen by both interventional radiology and vascular surgery and all agreed that a below-knee amputation was the patient's best option for viability as the infection had made him very sick. I discussed this at length with the patient while he wanted to save his foot. He understood that he needed a below-knee amputation. He understood the risks, hazards, benefits associated and wished to proceed. OPERATIVE SUMMARY IN DETAIL: After obtaining the appropriate preoperative orthopedic surgery consent as well as anesthetic consultation, evaluation, and clearance the patient was brought to the operating room and placed on the operating table in supine position. After general laryngeal mask airway was administered, tourniquet was placed at the proximal aspect of left lower extremity. Left lower extremity was then prepped and draped in routine sterile fashion. At this time, the appropriate timeout was taken and agreed upon by all. Planned incision was drawn out with a sterile marking pen. The leg was elevated, tourniquet was inflated to 350 mmHg. The incision was taken down across the proximal aspect of the tibia, approximately 4 fingerbreadths below the tibial tuberosity. Large posterior flap was created with the skin incision. Incision was taken down and the osteotomy was performed on both the tibia and the fibula. The tibia being a little bit lower than the fibula, fibula was cut at an angle. Chevron cut was made on the front of the tibia for decreased pressure. At this point, the posterior flap was created using the amputation knife and the infected lower extremity was passed off the field. Irrigation was then followed by decreasing the tourniquet. All arterial bleeders were ligated with a 0 silk. The neurovascular bundle was then cut for retraction. Wound was again irrigated. Posterior flap was then reapproximated to the anterior periosteum as well as fascia. The patient had an excellent flap that was reapproximated with a combination of #1 Vicryl, 2-0 Vicryl and finally skin sandy. Having completed this, sterile dressings were applied. The patient was awakened, taken to recovery room in stable condition. All final needle and sponge counts were correct. EDITED FOR KENNY RIVAS 11/18/18 TRANSINT:[id number] Voice Confirmation ID: [id number] DOCUMENT ID: [id number] OPERATIVE REPORT [id number] DAVID HOWELL MD, LUCRETIA DOMÍNGUEZ at 1534 CC: [id number] DICTATION DATE: 11/08/18 1055 TRACK LAMINATING MACHINE TENDER: 11/08/18 1321 DIS IN 11/01/18 [id number] [place] [address]
== END 2018-11-01 16:40 | DRG 616 ==
LOC: D.MS 11:43
PROVIDERS: Family Medicine; Internal Medicine Nephrology; Orthopaedic Surgery; ADMIT Family Medicine; ATTEND Family Medicine
PROC: 0Y6H0Z2 Detachment at Right Lower Leg, Mid, Open Approach (ICD-10-PCS; principal; 2018-10-28 11:15)
DX: E11.69 Type 2 diabetes mellitus with other specified complication (principal); J18.9 Pneumonia, unspecified organism; E43 Unspecified severe protein-calorie malnutrition; M86.172 Other acute osteomyelitis, left ankle and foot; E87.1 Hypo-osmolality and hyponatremia; E11.65 Type 2 diabetes mellitus with hyperglycemia; E86.0 Dehydration; N17.9 Acute kidney failure, unspecified; D50.9 Iron deficiency anemia, unspecified; J30.9 Allergic rhinitis, unspecified; I25.10 Atherosclerotic heart disease of native coronary artery without angina pectoris; Z68.22 Body mass index [BMI] 22.0-22.9, adult

== ENCOUNTER 2018-11-01 14:44 | Inpatient (IN) | payer MEDICARE ==
[~2018-11-01] VITALS: Ht 182.9 cm; Wt 76.7 kg
[~2018-11-01 14:44] MED LIST changes: +BENADRYL25 MG PO; +FOLIC ACID1 MG PO; +HYDROCODON-ACE1 EA10 PO; +TUMS X-STR300 MG PO
[2018-11-01 18:08] VITALS: BP 118/48; BMI 22.9
--- NOTE | 2018-11-01 19:52 | NUR ---
PT IS RESTING IN BED WITH EYES CLOSED. RESPS ARE EVEN AND UNLABORED. NO ACUTE DISTRESS NOTED. NOT AWOKEN AT THIS TIME.
[2018-11-01 21:42] VITALS: BP 118/48
--- NOTE | 2018-11-01 23:16 | NUR ---
RESTING IN BED WITH EYES CLOSED.
--- NOTE | 2018-11-02 04:59 | NUR ---
I have reviewed this patient and I concur with the Shift Assessment completed by the Licensed Practical Nurse today this shift.
[2018-11-02 06:35] LABS: BASOPHILS 0.4 % (0-2); EOSINOPHILS 5.9 % (0-7); HEMATOCRIT 27.2 % (42.0-54.0); LYMPHOCYTES 23.3 % (15-50); MCHC 33.1 g/dL (31.0-37.0); MCV 93.8 fL (80.0-100.0); MEAN PLATELET VOLUME 8.3 fL (7.4-10.4); MONOCYTES 11.8 % (2-11); NEUTROPHILS 57.6 % (40-80); PLATELET COUNT 357 10x3/uL (130-400)
[2018-11-02 06:52] LABS: CALCIUM 8.9 mg/dL (8.5-10.1); CARBON DIOXIDE 23.4 mmol/L (21.0-32.0); CREATININE - SERUM 1.3 mg/dL (0.6-1.3); POTASSIUM - SERUM 4.4 mmol/L (3.5-5.1)
[2018-11-02 06:55] LABS: WBC 7.8 10x3/uL (4.8-10.8)
[2018-11-02 08:00] VITALS: BP 93/39
--- NOTE | 2018-11-02 08:30 | NUR ---
PT BP WAS LOW THIS AM, 93/39, 92....HE WAS RETURNED TO LAYING DOWN AND BLE ELEVATED...B/P INCREASED TO 113/56, 74 WITHIN 20 MINUTES...
[2018-11-02 10:00] VITALS: Ht 182.9 cm; Wt 76.7 kg
--- NOTE | 2018-11-02 15:51 | NUR ---
SITTING UP IN BED WATCHING TV. DENIES INCREASED PAIN TO RLE STUMP. STILL HAS HARD PLASTIC STUMP PROTECTOR IN PLACE. BED IN LOWEST POSITION,. URINAL BY BED. CALL LIGHT IN REACH
[2018-11-02 20:00] VITALS: BP 118/74
--- NOTE | 2018-11-02 20:00 | NUR ---
PT IS RESTING IN BED WITH EYES OPEN. ALERT AND ORIENTED X 3. ALREADY MEDICATED FOR PAIN IN HIS STUMP. PT STATES IT IS FEELING MUCH BETTER ALREADY. INCISION CLEANED WITH BETADINE, AND BRACE RE APPLIED. NO FURTHER NEEDS VOICED. SR'S ARE UP X 2 IN BED. CALL LIGHT AND BEDSIDE TABLE ARE WITHIN EASY REACH.
--- NOTE | 2018-11-02 23:19 | NUR ---
I have reviewed this patient and I concur with the Shift Assessment completed by the Licensed Practical Nurse today this shift.
--- NOTE | 2018-11-03 01:23 | NUR ---
RESTING IN BED WITH EYES CLOSED.
--- NOTE | 2018-11-03 03:39 | NUR ---
PT LYING IN BED EYES CLOSED RESTING QUIETLY.
--- NOTE | 2018-11-03 04:26 | NUR ---
RESTING IN BED WITH EYES CLOSED. NO DISTRESS NOTED.
[2018-11-03 08:00] VITALS: BP 144/71
--- NOTE | 2018-11-03 13:40 | NUR ---
SITTING UP IN IN ROOM WATCHING TV. HAS STUMP PROTECTOR IN LLE AND IT IS PROPED UP ON BED FOR ELEVATION. HAS MISSING TOES TO RLE AND POOR BALANCE. IS ABLE TO TRANSFER TO FROM BED WITH MIN TO NO ASST FROM NURSE. CALL LIGHT IN REACH
--- NOTE | 2018-11-03 19:08 | NUR ---
PT RESTING IN BED VISITING WITH HIS . ALERT AND ORIENTED X 3. DENIES ACUTE PAIN OR DISCOMFORT AT THIS TIME. NO NEEDS VOICED. HARD SHELL BRACE TO LEFT BKA IS ON AND INTACT. SR'S ARE UP X 2 IN BED. CALL LIGHT AND BEDSIDE TABLE ARE WITHIN EASY REACH.
[2018-11-03 20:44] VITALS: BP 109/58
--- NOTE | 2018-11-03 22:48 | NUR ---
PT RESTING IN BED IN HIS ROOM. STAYING IN ROOM WITH PT.
--- NOTE | 2018-11-03 22:59 | NUR ---
I have reviewed this patient and I concur with the Shift Assessment completed by the Licensed Practical Nurse today this shift.
--- NOTE | 2018-11-04 03:00 | NUR ---
RESTING IN BED WITH EYES CLOSED.
[2018-11-04 06:33] LABS: ANION GAP 13.4 mmol/L (8-16); CARBON DIOXIDE 26.9 mmol/L (21.0-32.0); CREATININE - SERUM 1.1 mg/dL (0.6-1.3); POTASSIUM - SERUM 4.3 mmol/L (3.5-5.1)
[2018-11-04 07:30] LABS: BASOPHILS 0.3 % (0-2); EOSINOPHILS 4.1 % (0-7); HEMATOCRIT 24.1 % (42.0-54.0); HEMOGLOBIN 8.1 g/dL (13.5-17.5); MCH 31.3 pg (26.0-34.0); MCHC 33.6 g/dL (31.0-37.0); MCV 93.1 fL (80.0-100.0); MEAN PLATELET VOLUME 8.4 fL (7.4-10.4); MONOCYTES 12.9 % (2-11); NEUTROPHILS 56.7 % (40-80); PLATELET COUNT 348 10x3/uL (130-400); RBC 2.59 10x6/uL (4.20-6.10); RDW 15.5 % (11.5-14.5); WBC 6.8 10x3/uL (4.8-10.8)
[2018-11-04 11:55] VITALS: BP 121/66
--- NOTE | 2018-11-04 13:29 | NUR ---
PATIENT ADMITTED TO REHAB FROM ACUTE FLOOR. HIS PCP IS FR. OCAMPO. DME AT HOME IS A SHOWER CHAIR, WALKER AND A WHEELCHAIR. DISCHARGE PLANS ARE FOR PATIENT TO DISCHARGE HOME. WILL CONTINUE TO FOLLOW WITH PATIENT.
--- NOTE | 2018-11-04 17:05 | NUR ---
RESTING QUIETLY LAYING IN BED. BLOOD INFUSING VIA LEFT WRIST IV. CALL LIGHT IN REACH
[2018-11-04 18:41] VITALS: BP 124/66
--- NOTE | 2018-11-04 19:00 | NUR ---
PT IS RESTING IN BED WITH EYES CLOSED. NO ACUTE DISTRESS NOTED. 2ND UNIT OF BLOOD IS INFUSING WITHOUT DIFFICULTY. VSS. NO S/S OF ADVERSE REACTION NOTED. DRESSING TO RIGHT LEG STUMP IS CDI. NO DRAINAGE NOTED. SR'S ARE UP X 2 IN BED. CALL LIGHT AND BEDSIDE TABLE ARE WITHIN EASY REACH.
--- NOTE | 2018-11-04 20:50 | NUR ---
BLOOD FINISHED AT THIS TIME. NO ADVERSE REACTION NOTED. VSS.
--- NOTE | 2018-11-04 21:36 | NUR ---
RESTING QUIETLY IN BED WITH EYES CLOSED. NO ACUTE DISTRESS NOTED.
--- NOTE | 2018-11-04 23:27 | NUR ---
REST IN BED, CALL LIGHT IN REACH.
--- NOTE | 2018-11-04 23:38 | NUR ---
I have reviewed this patient and I concur with the Shift Assessment completed by the Licensed Practical Nurse today this shift.
[2018-11-05 08:21] VITALS: BP 116/69
--- NOTE | 2018-11-05 08:36 | NUR ---
PT AM MEDS ADMINISTERED. PT DENIES NEEDS. WCTM.
--- NOTE | 2018-11-05 09:55 | NUR ---
PT PAIN MEDICATION ADMINISTERED AT THIS TIME. PT PARTICIPATING IN THERAPY. WCTM.
--- NOTE | 2018-11-05 19:40 | NUR ---
PT COMPLAINING OF PAIN IN LEFT LEG. PAIN PILL GIVEN PER APR. DENIES FURTHER NEEDS. A/O X4. CL IN REACH. RESP EVEN AND UNLABORED. WCTM
[2018-11-05 20:46] VITALS: BP 132/74
--- NOTE | 2018-11-06 03:25 | NUR ---
pt resting quietly. cl in reach. no distress noted. eyes closed. wctm
--- NOTE | 2018-11-06 05:06 | NUR ---
I have reviewed this patient and I concur with the Shift Assessment completed by the Licensed Practical Nurse today this shift.
--- NOTE | 2018-11-06 05:45 | NUR ---
DRESSING CHANGED TO LEFT BKA. EMPTIED 1000CC OUT OF URINAL. CL IN REACH. DENIES FURTHER NEEDS. WCTM
[2018-11-06 06:38] LABS: BASOPHILS 0.3 % (0-2); EOSINOPHILS 3.1 % (0-7); HEMATOCRIT 32.7 % (42.0-54.0); IMMATURE GRANULOCYTES 0.5 % (0-5); LYMPHOCYTES 24.6 % (15-50); MCH 30.5 pg (26.0-34.0); MCHC 33.6 g/dL (31.0-37.0); MCV 90.6 fL (80.0-100.0); MEAN PLATELET VOLUME 8.6 fL (7.4-10.4); NEUTROPHILS 61.5 % (40-80); PLATELET COUNT 339 10x3/uL (130-400); RBC 3.61 10x6/uL (4.20-6.10); RDW 16.5 % (11.5-14.5); WBC 7.5 10x3/uL (4.8-10.8)
[2018-11-06 07:38] LABS: ANION GAP 14.3 mmol/L (8-16); CREATININE - SERUM 1.2 mg/dL (0.6-1.3); POTASSIUM - SERUM 4.3 mmol/L (3.5-5.1)
[2018-11-06 07:56] VITALS: BP 131/78
--- NOTE | 2018-11-06 08:00 | NUR ---
SHIFT ASSMT COMPLETED.CL IN REACH.
--- NOTE | 2018-11-06 12:00 | NUR ---
SITTING UP IN WC EATING LUNCH.
--- NOTE | 2018-11-06 14:20 | NUR ---
Nutrition Follow-up: Diet: Diabetic PO intake: ~69% average x 9 meals + HS snacks some nights Significant meds: lasix, SSI Labs reviewed, elevated glucose noted Skin assessment reviewed Wt: 169# (11/02/18) Last BM: 11/03/18 Continue current nutrition regimen. RD Following
--- NOTE | 2018-11-06 16:00 | NUR ---
RESTING QUIETLY.CL IN REACH.
--- NOTE | 2018-11-06 19:30 | NUR ---
PT SITTING UP IN BED. CL IN REACH. WATCHING TV. DENIES NEEDS AT THIS TIME. BED IN LOW SIDE RAILS X2. A/O X4. RESP EVEN AND UNLABORED. DRESSING INTACT TO LEFT BKA. WILL CONTINUE TO MONITOR.
[2018-11-06 21:59] VITALS: BP 94/43
--- NOTE | 2018-11-07 02:06 | NUR ---
I have reviewed this patient and I concur with the Shift Assessment completed by the Licensed Practical Nurse today this shift.
--- NOTE | 2018-11-07 02:07 | NUR ---
I have reviewed this patient and I concur with the Shift Assessment completed by the Licensed Practical Nurse today this shift.
--- NOTE | 2018-11-07 05:00 | NUR ---
CHANGED DRESSING TO LEFT BKA. MIMI INTACT. NO REDNESS NOTED. CL IN REACH. EMPTIED 1200 FROM URINAL. WCTM
[2018-11-07 08:00] VITALS: BP 110/44
--- NOTE | 2018-11-07 14:00 | NUR ---
SITTING UP IN BED WATCHING TV. DENIES NEEDS. CALL LIGHT IN REACH
--- NOTE | 2018-11-07 19:31 | NUR ---
GREETED PATIENT AND INTRODUCED MYSELF. PATIENT IS LAYING IN BED WATCHING TV AND PLAYING A CARD GAME ON HIS PERSONAL COMPUTER. RESPIRATIONS EVEN. NO S/S OF DISTRESS. NO PAIN NOTED AT THIS TIME. CALL LIGHT IN REACH.
[2018-11-07 20:34] VITALS: BP 115/52
[2018-11-08 07:54] LABS: BASOPHILS 0.3 % (0-2); EOSINOPHILS 4.3 % (0-7); HEMATOCRIT 31.2 % (42.0-54.0); HEMOGLOBIN 10.4 g/dL (13.5-17.5); IMMATURE GRANULOCYTES 0.3 % (0-5); LYMPHOCYTES 29.2 % (15-50); MCH 30.5 pg (26.0-34.0); MCHC 33.3 g/dL (31.0-37.0); MCV 91.5 fL (80.0-100.0); MEAN PLATELET VOLUME 8.7 fL (7.4-10.4); MONOCYTES 10.1 % (2-11); NEUTROPHILS 55.8 % (40-80); PLATELET COUNT 293 10x3/uL (130-400); RBC 3.41 10x6/uL (4.20-6.10); WBC 5.8 10x3/uL (4.8-10.8)
[2018-11-08 08:06] LABS: ANION GAP 11.4 mmol/L (8-16); CARBON DIOXIDE 27.7 mmol/L (21.0-32.0); CREATININE - SERUM 1.2 mg/dL (0.6-1.3); POTASSIUM - SERUM 4.1 mmol/L (3.5-5.1)
[2018-11-08 08:36] VITALS: BP 126/46
--- NOTE | 2018-11-08 10:33 | RHP ---
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 HISTORY OF PRESENT ILLNESS: The patient was admitted to inpatient rehab with a left nkbks-lux-vhmo amputation. He is a 78-year-old gentleman, who was a direct admit from the physician's office for osteomyelitis, who failed outpatient therapy. He had undergone multiple debridements by Dr. Queen for left foot osteomyelitis. He was actually scheduled for BKA with Dr. Elizabeth, but had canceled. He underwent revascularization by the [facility] in July. He has got a history of diabetes, coronary artery disease, history of coronary artery bypass grafting and valve replacement. He has had problems with this foot in the past. He underwent a left BKA on October 28. He is currently on telemetry, receiving IV antibiotics, monitoring his anticoagulation closely. He has got acute blood loss anemia, elevation of BUN and creatinine of 27 and 2.1, pneumonia, deconditioning, weakness, impaired mobility, gait disturbance, impaired balance, high fall risk, and self-care deficits. These are all barriers to his discharged home at this time. He lives at home with his . He was independent with his mobility and use of crutches with ADLs. He is currently set up for mod assist for his ADLs and mod assist for his mobility. He plans to return home with his as close to his prior level of functioning as possible. Comorbidities in this patient include acute kidney injury, microcytic anemia, allergic rhinitis, type 2 diabetes, coronary artery disease, history of CABG, history of valve replacement, severe protein-calorie malnutrition, weakness, anemia, chronic kidney disease, dehydration, osteomyelitis, history of atrial flutter, sepsis, status post left ajziz-kfa-rbvk amputation, acute blood loss anemia, acute community-acquired pneumonia, hyperosmolarity, and hyponatremia. PAST MEDICAL HISTORY: Significant for diabetes, coronary artery bypass grafting, valve replacement, partial right foot amputation. PAST SURGICAL HISTORY: Includes foot, arm, extremity and angioplasty with stents. ALLERGIES: SOTALOL. CURRENT MEDICATIONS: Include Xarelto 15 mg daily, Floranex daily, multivitamin daily, folic acid 1 mg daily, Plavix 75 mg daily, atorvastatin 40 mg daily, Protonix 40 mg daily, Humalog intermediate resistant sliding scale, Neurontin 600 mg b.i.d., Ultram 50 mg every 4 hours p.r.n. He is on [place] 10/325 one tab every 6 hours p.r.n., Tums 750 as needed for heartburn, and Benadryl 25 mg as needed for insomnia. HABITS: No current alcohol or tobacco use. FAMILY HISTORY: Noncontributory. HISTORY AND PHYSICAL [id number] DAVID HOWELL SOCIAL HISTORY: The patient hopes to return back home and get back to his prior level of functioning. REVIEW OF SYSTEMS: GENERAL: He does complain of some weakness and fatigue. HEENT: Denies cold, cough, or congestion. CARDIOVASCULAR: Denies chest pain. PHYSICAL EXAMINATION: VITAL SIGNS: Stable, afebrile. GENERAL: Elderly gentleman, in no acute distress upon exam. HEENT: Normocephalic and atraumatic. Mucosa moist. NECK: Supple without adenopathy. LUNGS: Clear in both fay. Decreased breath sounds in the bases. CARDIOVASCULAR: Regular rate and rhythm. Does have a holosystolic murmur. ABDOMEN: Soft, benign, and nondistended. Positive bowel sounds times 4. EXTREMITIES: No clubbing, cyanosis, or edema. He is noted to have a left pgwxz-oht-bbrf amputation. Postop area looks pretty good. NEUROLOGIC: Intact. LABORATORY DATA: White count 7.8, H&H of 9 and 27, and platelet count is noted to be 357. Sodium is 134, potassium 4.4, BUN and creatinine of 10 and 1.3, and blood sugar is noted to be 157. ASSESSMENT: This is a 78-year-old gentleman admitted to the rehab with a working diagnosis of status post left below-knee amputation. The patient has potential to make improvement. We will institute the following multidisciplinary therapies including, but not limited to, physical, occupational, respiratory, speech, nutritional services, prosthetics, and orthotics. Given his complex medical condition and risks for more complications, rehabilitation services cannot be provided at a lower level of care such as a skilled nurse facility. PLAN: 1. Admit to [facility] for an inpatient therapy to include the following disciplines; A. Physical therapy to improve gait, all transfer skills, and bed mobility to modified independent level. B. Occupational therapy to modified independent level. C. Case management to assist with discharge planning and placement options. D. Nutrition to assist with nutritional needs. E. Rehabilitation nursing to assist in monitoring the patient's underlying medical conditions and to assist with any type of bowel or bladder management. 2. The patient's current medications and medical care will be continued. 3. The patient will be placed on standard fall precautions. 4. We will work with orthotics and get them involved next week. 5. We will follow up in a.m. TRANSINT:[id number] Voice Confirmation ID: [id number] DOCUMENT ID: [id number] 11/06/18 Edited for yarely DONNELLY. CONY notes whether there has been none or any medical/functional change since admission: HISTORY AND PHYSICAL [id number] DAVID HOWELL - No change since preadmission screen. CONY attests patient continues to be appropriate for IRF: - Continues to be appropriate. MARILYN PEREZ MD at 1033 CC: [id number] DICTATION DATE: 11/02/18 1144 FINANCIAL WELLNESS COACH: 11/02/18 1214 ADM IN [facility] [address] [id number]
[2018-11-08 18:29] VITALS: BP 121/56
--- NOTE | 2018-11-08 19:07 | NUR ---
PT IS RESTING IN BED TALKING ON HIS CELL PHONE. ALERT AND ORIENTED X 3. DENIES ACUTE DISCOMFORT AT THIS TIME. NO NEEDS VOICED. DRESSING TO LEFT LEG STUMP IS CDI. NO DRAINAGE NOTED.
--- NOTE | 2018-11-08 23:00 | NUR ---
RESTING QUIETLY IN BED WITH EYES CLOSED. RESPS ARE EVEN AND UNLABORED. NO ACUTE DISTRESS NOTED.
--- NOTE | 2018-11-09 02:45 | NUR ---
PT AWOKE FROM SLEEP. STATED HE HAD SWEATED A LOT. REQUESTED AND GIVEN NEW SCRUBS TO PUT ON. NO FURTHER NEEDS VOICED.
--- NOTE | 2018-11-09 05:17 | NUR ---
I have reviewed this patient and I concur with the Shift Assessment completed by the Licensed Practical Nurse today this shift.
[2018-11-09 08:00] VITALS: BP 109/64
--- NOTE | 2018-11-09 09:37 | NUR ---
PATIENT IS ALERT/ORIENT. SITTING UP IN WHEELCHAIR TO EAT BREAKFAST. CALL LIGHT WITHIN REACH. REQUESTED PRN PAIN MEDICATION FOR LEFT BKA. PAIN MEDICATION GIVEN. WILL CONTINUE WITH PLAN OF CARE
--- NOTE | 2018-11-09 11:32 | NUR ---
I have reviewed this patient and I concur with the Shift Assessment completed by the Licensed Practical Nurse today this shift.
--- NOTE | 2018-11-09 11:55 | NUR ---
GLUCOSE LEVEL 267. TEN UNITS OF SLIDING SCALE INSUIN GIVEN
--- NOTE | 2018-11-09 15:50 | NUR ---
DRESSING TO LT BKA CHANGED.
[2018-11-09 19:17] VITALS: BP 105/66
--- NOTE | 2018-11-09 19:31 | NUR ---
PT IS RESTING IN BED WATCHING TV. ALERT AND ORIENTED X 3. DENIES ANY PAIN OR DISCOMFORT AT THIS TIME. NO NEEDS VOICED. VSS. DRESSING TO LEFT LEG BKA IS CDI. NO DRAINAGE NOTED. SR'S ARE UP X 2 IN BED. CALL LIGHT AND BEDSIDE TABLE ARE WITHIN EASY REACH.
--- NOTE | 2018-11-09 21:12 | NUR ---
PT RESTING IN BED WATCHING TV. NO NEEDS VOICED.
--- NOTE | 2018-11-10 01:48 | NUR ---
I have reviewed this patient and I concur with the Shift Assessment completed by the Licensed Practical Nurse today this shift.
--- NOTE | 2018-11-10 04:55 | NUR ---
RESTING IN BED WITH EYES CLOSED.
--- NOTE | 2018-11-10 08:00 | NUR ---
SHIFT ASSMT COMPLETED.
[2018-11-10 08:09] VITALS: BP 112/55
--- NOTE | 2018-11-10 16:00 | NUR ---
CONTINUET TO MONITOR.
[2018-11-10 19:52] VITALS: BP 93/43
--- NOTE | 2018-11-10 20:00 | NUR ---
PATIENT RECEIVED SITTING UP IN CHAIR. IN THE ROOM. VITAL SIGNS & ASSESSMENT DONE. NO C/O PAIN OR DISTRESS. BANDAGE CHANGED TODAY & IS DRY & INTACT. CALL LIGHT WITHIN REACH. WILL CONTINUE TO MONITOR.
--- NOTE | 2018-11-11 01:21 | NUR ---
I have reviewed this patient and I concur with the Shift Assessment completed by the Licensed Practical Nurse today this shift.
[2018-11-11 07:39] LABS: BASOPHILS 0.8 % (0-2); EOSINOPHILS 5.7 % (0-7); HEMATOCRIT 30.9 % (42.0-54.0); HEMOGLOBIN 10.2 g/dL (13.5-17.5); IMMATURE GRANULOCYTES 0.2 % (0-5); LYMPHOCYTES 32.7 % (15-50); MCH 30.5 pg (26.0-34.0); MCV 92.5 fL (80.0-100.0); MEAN PLATELET VOLUME 9.1 fL (7.4-10.4); MONOCYTES 11.2 % (2-11); NEUTROPHILS 49.4 % (40-80); PLATELET COUNT 263 10x3/uL (130-400); RBC 3.34 10x6/uL (4.20-6.10); RDW 15.7 % (11.5-14.5); WBC 5.3 10x3/uL (4.8-10.8)
[2018-11-11 08:09] LABS: ANION GAP 13.4 mmol/L (8-16); CALCIUM 8.4 mg/dL (8.5-10.1); CARBON DIOXIDE 26.1 mmol/L (21.0-32.0); CREATININE - SERUM 1.2 mg/dL (0.6-1.3); POTASSIUM - SERUM 4.5 mmol/L (3.5-5.1)
--- NOTE | 2018-11-11 08:15 | NUR ---
PT RESTING IN BED WITH EYES OPEN CALL LIGHT IN REACH WILL MONITER
--- NOTE | 2018-11-11 14:28 | NUR ---
CLINICAL UPDATES FAXED TO [facility] AT , REGARDING AUTH. # [id number] WITH TENATIVE DISCHARGE DATE OF 11/15/18 WITH CONFORMATION RECEIVED.
--- NOTE | 2018-11-11 15:00 | NUR ---
PT RESTING IN BED EYES OPEN CALL LIGHT IN REACH NO PROBLEMS WILL MONITER
--- NOTE | 2018-11-11 19:25 | NUR ---
PT SITTING UP IN BED WATCHING TV AND USING LAPTOP. CL IN REACH. DENIES NEEDS AT THIS TIME. BED IN LOW SIDE RAILS X2. RESP EVEN AND UNLABORED. WILL CONTINUE TO MONITOR.
[2018-11-11 21:47] VITALS: BP 118/67
--- NOTE | 2018-11-12 00:15 | NUR ---
PT MANAGER MERCHANDISE LIGHT WANTING NEW SCRUB TOB DUE TO SWEATING THROUGH PREVIOUS ONE. PROVIDED NEW SCRUB TOP AND DENIES FURTHER NEEDS. CL IN REACH. WCTM
--- NOTE | 2018-11-12 01:42 | NUR ---
QUIET HOURS. PT LYING IN BED EYES CLOSED RESTING QUIETLY.
--- NOTE | 2018-11-12 03:11 | NUR ---
RESTING QUIETLY.CL IN REACH. NO DISTRESS NOTED. WCTM
--- NOTE | 2018-11-12 04:16 | NUR ---
I have reviewed this patient and I concur with the Shift Assessment completed by the Licensed Practical Nurse today this shift.
--- NOTE | 2018-11-12 05:36 | NUR ---
ASSISTED PT TO AND FROM BATHROOM. BM NOTED. CL IN REACH. PT BACK IN BED. DENIES FURTHER NEEDS. DRESSING CHANGED THIS AM. WCTM
--- NOTE | 2018-11-12 08:00 | NUR ---
PT UP IN CHAIR EATING BREAKFAST TOLERATING WELL WILL MONITER
--- NOTE | 2018-11-12 13:56 | NUR ---
Nutrition Follow-up: Diet: Diabetic PO intake: 75-100% Significant meds: lasix SSI. Labs reviewed. Wt: 169# (11/02/18). +BM Continue current nutrition regimen. RD Following
--- NOTE | 2018-11-12 18:20 | NUR ---
PT RESTING IN BED WITH EYES OPEN CALL LIGHT IN REACH WILL MONITER
--- NOTE | 2018-11-12 19:00 | NUR ---
SHIFT ASSESSMENT COMPLETE. VSS, NO SIGNS OF ACUTE DISTRESS NOTED. PT ALERT AND ORIENTED. C/O PAIN IN LLE, STATES PAIN MEDICINE HELPS. DENIES NEEDS AT THIS TIME, WILL CONTINUE TO MONITOR.
[2018-11-12 21:29] VITALS: BP 131/63
--- NOTE | 2018-11-13 | NUR ---
PT SLEEPING. WILL MONITOR.
--- NOTE | 2018-11-13 05:15 | NUR ---
CHANGED L BKA DRESSING.
--- NOTE | 2018-11-13 06:00 | NUR ---
FSBS 220, MEDS GIVEN PER MAR. PT DENIES NEEDS AT THIS TIME. CALL LIGHT IN REACH, WILL CONTINUE TO MONITOR.
[2018-11-13 07:34] LABS: BASOPHILS 0.9 % (0-2); EOSINOPHILS 7.8 % (0-7); HEMATOCRIT 31.4 % (42.0-54.0); HEMOGLOBIN 10.5 g/dL (13.5-17.5); IMMATURE GRANULOCYTES 0.2 % (0-5); LYMPHOCYTES 38.4 % (15-50); MCH 30.8 pg (26.0-34.0); MCHC 33.4 g/dL (31.0-37.0); MCV 92.1 fL (80.0-100.0); MEAN PLATELET VOLUME 9.6 fL (7.4-10.4); MONOCYTES 11.5 % (2-11); NEUTROPHILS 41.2 % (40-80); PLATELET COUNT 251 10x3/uL (130-400); RBC 3.41 10x6/uL (4.20-6.10); RDW 15.7 % (11.5-14.5); WBC 4.3 10x3/uL (4.8-10.8)
[2018-11-13 07:51] LABS: ANION GAP 12.6 mmol/L (8-16); CARBON DIOXIDE 27.8 mmol/L (21.0-32.0); CREATININE - SERUM 1.1 mg/dL (0.6-1.3); POTASSIUM - SERUM 4.4 mmol/L (3.5-5.1)
--- NOTE | 2018-11-13 08:00 | NUR ---
PATIENT SITTING UP IN WHEELCHAIR AT BEDSIDE FOR BREAKFAST. ALERT/ORIENT. CALL LIGHT WITHIN REACH. VOICES NO NEEDS AT THIS TIME. WILL CONTINUE WITH PLAN OF CARE
[2018-11-13 08:04] VITALS: BP 117/61
--- NOTE | 2018-11-13 12:30 | NUR ---
I have reviewed this patient and I concur with the Shift Assessment completed by the Licensed Practical Nurse today this shift.
--- NOTE | 2018-11-13 14:10 | NUR ---
THIS NURSE TALKED TO ELVIRA MURPHY FOR DR RANGEL IN REGARDS TO LEFT BKA INCISION. NEW ORDERS TO REMOVE SURGICAL CLIPS
--- NOTE | 2018-11-13 18:32 | NUR ---
SURGICAL CLIPS REMOVED FROM LEFT BKA EXCEPT FOUR ON OUTTER EDGE OF LEFT BKA. STERI STRIPS APPLIED. PATIENT REQUESTED KERLEX WRAP AND MICAH WRAP APPLIED
--- NOTE | 2018-11-13 19:20 | NUR ---
BEDSIDE REPORT COMPLETE. INTRODUCED SELF TO PT. PT SITTING UP IN W/C WORKING ON LAPTOP. ALERT AND ORIENTED X4. NO CONCERNS VOICED. C/O 8/10 THROBBING PAIN IN LEFT STUMP. REQUEST PAIN MEDICATION. SHIFT ASSESSMENT COMPLETE. VS STABLE. CALL LIGHT AND WATER WITHIN REACH, FALL PRECAUTIONS IN PLACE. WILL CONTINUE TO MONITOR
[2018-11-13 21:17] VITALS: BP 109/62
--- NOTE | 2018-11-13 23:39 | NUR ---
QUIET HOURS. PT LYING IN BED EYES CLOSED RESTING QUIETLY.
--- NOTE | 2018-11-14 02:07 | NUR ---
PT LYING IN BED EYES CLOSED RESTING QUIETLY
--- NOTE | 2018-11-14 05:15 | NUR ---
PT LYING IN BED EYES CLOSED RESTING QUIETLY.
[2018-11-14 08:00] VITALS: BP 123/68
--- NOTE | 2018-11-14 08:04 | NUR ---
PATIENT IS ALERT/ORIENT. SITTING UP IN WHEELCHAIR AT BEDSIDE TO EAT BREAKFAST. CALL LIGHT WITHIN REACH. VOICES NO NEEDS AT THIS TIME. WILL CONTINUE WITH PLAN OF CARE
--- NOTE | 2018-11-14 14:44 | NUR ---
PATIENT TO BE DISCHARGE HOME TOMORROW.
[2018-11-14 19:00] VITALS: BP 108/46
--- NOTE | 2018-11-14 19:24 | NUR ---
GREETED PATIENT AND INTRODUCED MYSELF. PATIENT IS FILLING OUT MENU AT THIS TIME. RESPIRATIONS EVEN. NO S/S OF DISTRESS. STATES PAIN IS 7/10 ON LEFT STUMP. DENIES ANY FURTHER NEEDS AT THIS TIME. CALL LIGHT IN REACH.
--- NOTE | 2018-11-15 03:22 | NUR ---
PATIENT RESTING QUIETLY WITH EYES CLOSED LAYING ON LEFT SIDE. RESPIRATIONS EVEN. NO S/S OF DISTRESS. SR UP X 2. BED IN LOWEST POSITION. CALL LIGHT IN REACH.
[2018-11-15 07:18] LABS: BASOPHILS 0.9 % (0-2); EOSINOPHILS 8.7 % (0-7); HEMATOCRIT 32.9 % (42.0-54.0); HEMOGLOBIN 10.5 g/dL (13.5-17.5); IMMATURE GRANULOCYTES 0.2 % (0-5); LYMPHOCYTES 38.2 % (15-50); MCH 30.3 pg (26.0-34.0); MCHC 31.9 g/dL (31.0-37.0); MEAN PLATELET VOLUME 9.4 fL (7.4-10.4); MONOCYTES 13.1 % (2-11); NEUTROPHILS 38.9 % (40-80); PLATELET COUNT 262 10x3/uL (130-400); RBC 3.46 10x6/uL (4.20-6.10); RDW 15.4 % (11.5-14.5); WBC 4.5 10x3/uL (4.8-10.8)
[2018-11-15 07:22] LABS: MCV 95.1 fL (80.0-100.0)
[2018-11-15 07:37] VITALS: BP 106/52
[2018-11-15 07:43] LABS: ANION GAP 14.4 mmol/L (8-16); CALCIUM 9.1 mg/dL (8.5-10.1); CARBON DIOXIDE 27.1 mmol/L (21.0-32.0); CREATININE - SERUM 1.3 mg/dL (0.6-1.3); POTASSIUM - SERUM 4.5 mmol/L (3.5-5.1)
[2018-11-15] MEDS ORDERED: HYDROCODON-ACE1 EA10 PO (08:41)
--- NOTE | 2018-11-15 09:39 | NUR ---
PATIENT DISCHARGING HOME TODAY WITH FAMILY. PATIENT AND SPOUSE DECLINES HOME HEALTH AT THIS TIME. NO NEW DME NEEDED AT THIS TIME. DR. OCAMPO OFFICE WILL CALL PATIENT WITH AN APPOINTMENT. DR. ADHIKARI 11/18/18 @ 9:30. PATIENT CHOICE FORM AND IMFM FORM SIGNED, COPY GIVEN TO PATIENT AND FILED IN CHART. DISCHARGE INSTRUCTIONS WITH FIM DATA FAXED TO PCP, PATIENT INSURNACE AND REVIEWED WITH PATIENT AND SPOUSE.
--- NOTE | 2018-11-15 13:59 | NUR ---
DISCHARGE CLINICALS FAXED TO ANGEL[facility] CARBALLO AT , AUTH. # [id number] WITH CONFORMATION RECIEVED
--- NOTE | 2019-01-21 09:55 | DS ---
PATIENT:DAVID HOWELL :40 MEDICAL RECORD: [id number] DISCHARGE SUMMARY ADMISSION DATE: 11/01/18 DISCHARGE DATE: 11/15/18 This is a discharge dated 11/15/2018 from inpatient rehabilitation. PRIMARY DIAGNOSIS: Decreased functional ability and ability to provide activities of daily living secondary to osteomyelitis, status post left below-knee amputation. SECONDARY DIAGNOSES: 1. Diabetes. 2. Coronary artery disease. 3. Acute blood loss anemia. 4. Chronic kidney disease. 5. Hyponatremia. 6. Hyperlipidemia. 7. Hypocalcemia. HOSPITAL COURSE: Full H&P is located elsewhere on the chart on this 78-year-old male who was admitted to inpatient rehab for physical therapy and occupational therapy to improve gait, transfer skills, bed mobility, and activities of daily living to a modified independent level. He was evaluated by PT and OT and their plans of care were followed. He required assisted care for observation and assessment and medication administration as well as wound care and monitoring of surgical incision. Electrolytes were managed by protocol. Fingerstick blood sugars were monitored throughout his hospital stay with appropriate adjustment in medications as needed. He received 2 units of packed red blood cells for an H&H of 8.1 and 24 with good response. [facility] was consulted. He was cooperative with therapies, progressing towards goals. Case management was involved for discharge planning. [place] were removed from his incision. He was considered stable for discharge on 11/15/2018, having met 1/3 long-term PT goals. He did well and made progress in other areas. He met all of his PT goals. DISCHARGE MEDICATIONS: As per discharge medication reconciliation. DISCHARGE DISPOSITION: The patient is discharged home. Further therapies were recommended upon discharge, but he declined. He will continue his current diet and level of activity and will follow up with primary care and specialists as directed. At least 30 minutes was spent in this discharge activity. TRANSINT:[id number] Voice Confirmation ID: [id number] DOCUMENT ID: [id number] Dictated By: FATEMEH GILL I have interviewed/examined the above patient and agree with these documented findings. DISCHARGE SUMMARY REPORT [id number] DAVID HOWELL,MARILYN GARCIA MD at 0958 at 0955 CC: [id number] DICTATION DATE: 01/19/19 1519 [employer]PERVISOR [employer] DIVISION: 01/20/19 0058 DIS IN 11/15/18 [facility] [address] [id number]
== END 2018-11-15 13:30 | disposition home or self-care (01) | DRG 559 ==
LOC: D.REHAB 14:44
PROVIDERS: ADMIT Emergency Medicine; ATTEND Emergency Medicine
DX: Z47.81 Encounter for orthopedic aftercare following surgical amputation (principal); E43 Unspecified severe protein-calorie malnutrition; J18.9 Pneumonia, unspecified organism; A41.9 Sepsis, unspecified organism; M86.9 Osteomyelitis, unspecified; N17.9 Acute kidney failure, unspecified; E87.1 Hypo-osmolality and hyponatremia; E87.0 Hyperosmolality and hypernatremia; D62 Acute posthemorrhagic anemia; Z89.512 Acquired absence of left leg below knee; I25.10 Atherosclerotic heart disease of native coronary artery without angina pectoris; E11.22 Type 2 diabetes mellitus with diabetic chronic kidney disease; N18.9 Chronic kidney disease, unspecified; D50.9 Iron deficiency anemia, unspecified; E86.0 Dehydration

== ENCOUNTER → 2018-12-10 17:21 | Outpatient (CLI) | payer MEDICARE ==
[2018-11-02 10:00] VITALS: BMI 22.9
== END | disposition home or self-care (01) ==
LOC: D.LABREF 17:21
PROVIDERS: ATTEND Clinical Nurse Specialist Family Health
DX: Z89.512 Acquired absence of left leg below knee (principal)